=== PATIENT | female | born 1960 | race Caucasian/White ===

== ENCOUNTER → 2017-07-19 11:28 | Outpatient (CLI) | payer OTHER, SELFPAY ==
--- NOTE | 2017-07-19 11:37 | BI_ITS ---
MAMMOGRAPHY - BILATERAL SCREENING REASON FOR EXAM: Female, 57 years old. Routine annual screening examination. PERTINENT HISTORY: Grandmother with breast cancer. TECHNIQUE: Digital bilateral breast kwan (3D mammographic acquisition) in the CC and MLO projections. 2-D mediolateral oblique (MLO) and craniocaudad (CC) views of both breasts were obtained. CAD: Full Field Digital Mammography with Computer Added Detection was performed. COMPARISON: Comparison is made with prior operative examination dated February 25, 2016. FINDINGS: Breast Composition: There are scattered areas of fibroglandular density. There are no dominant masses or suspicious calcifications. Stable small bilateral benign appearing axillary lymph nodes. No other significant abnormalities are identified. There has been no significant change since the prior study. BI/SCREENING MAMM (CAD), BILAT IMPRESSION: Stable bilateral screening mammogram. Yearly follow-up mammogram recommended. (A) ASSESSMENT CATEGORY: BIRADS Category 2: Benign. A letter regarding these results will be sent to the patient by the facility within 30 days. Approximately 10% of breast cancers are not detected by mammography. A normal mammogram should not delay biopsy of a clinically suspicious abnormality. [id number] Electronically Signed: Qamar Day MD at 7:58 EDT Tel [phone], Service support ,
== END ==
DX: Z12.31 Encounter for screening mammogram for malignant neoplasm of breast (principal)
CPT/HCPCS: 77063; 77067

== ENCOUNTER 2017-08-10 20:19 | Emergency (ER) | payer OTHER, SELFPAY ==
[2017-08-10 20:20] VITALS: BP 181/110; PULSE 112; RESP 20; TEMP 36.7; O2SAT 97; BMI 25.9
--- NOTE | 2017-08-10 21:05 | RAD_ITS ---
STUDY: X-RAY CHEST REASON FOR EXAM: Female, 57 years old. Chest pain TECHNIQUE: 1 view COMPARISON: None. FINDINGS: The lungs are clear and expanded. There is no demonstrated pleural abnormality. Normal size heart. Normal mediastinum and zaire. Normal visualized pulmonary arteries. Normal visualized aortic arch and descending thoracic aorta. Normal visualized thoracic spine. Normal visualized ribs, clavicles, and shoulders. There is no demonstrated abnormality of the visualized soft tissue structures of the upper abdomen. RAD/Chest 1 View (Portable) IMPRESSION: Normal x-ray examination of the chest. Electronically Signed: Berna Damico MD at 21:50 EDT , Service support ,
--- NOTE | 2017-08-10 21:07 | EKG12_ITS ---
Test Reason : CP Blood Pressure : / mmHG Vent. Rate : 105 BPM Atrial Rate : 105 BPM P-R Int : 166 ms QRS Dur : 092 ms QT Int : 342 ms P-R-T Axes : 061 048 063 degrees QTc Int : 452 ms Sinus tachycardia Low voltage QRS Borderline ECG Confirmed by JIMBO PETERS, ANAIS ([id number]), brands editor BOONE GONZALEZ ([id number]) on 08/16/2017 3:10:12 PM Referred By: CLINTON Confirmed By:ANAIS CHOI MD
[2017-08-10 21:09] VITALS: O2SAT 98
[2017-08-10 21:14] LABS: Absolute Lymphocyte Count 3.33 X10^3/ul (0.83-4.51); Absolute Neutrophil Count 5.3 X10^3/uL (2.0-7.7); Basophil# 0.03 X10^3/uL; Basophil% 0.3 % (0-1); Eosinophil# 0.26 X10^3/uL; Eosinophils% 2.6 % (0-5); Hematocrit 37.7 % (37-47); Hemoglobin 12.8 g/dl (12.0-15.0); Lymphocyte # 3.33 X10^3/ul (4.0); Lymphocyte % 33.5 % (19-41); Mean Corpuscular Hgb 31.9 pg (27.0-32.0); Mean Platelet Vol. 10.1 fl (6.2-12.0); Monocyte# 1.04 X10^3/uL; Monocyte% 10.5 % (0-10); Neutrophil # 5.26 X10^3/uL (2.7-7.7); Neutrophil % 52.9 % (47-70); POSITIVE COUNT NO; POSITIVE DIFFERENTIAL NO; POSITIVE MORPHOLOGY NO; Platelet Count 301 K/mm3 (150-450); RBC Distribution Width CV 13.6 % (11.6-14.6); RBC Distribution Width SD 45.6 fl (35.1-43.9); Red Blood Count 4.01 M/mm3 (4.2-5.4); White Blood Count 9.9 K/mm3 (4.4-11.0)
[2017-08-10 21:19] VITALS: BP 168/90; PULSE 111; RESP 13; O2SAT 98
[2017-08-10 21:29] LABS: Anion Gap 7 (5-15); BUN 14 mg/dL (7-18); BUN/Creat Ratio 13.9 RATIO (10-20); Calcium,Total 9.7 mg/dL (8.5-10.1); Chloride 103 mmol/L (98-107); Creatinine, Serum 1.01 mg/dL (0.55-1.02); EST Glomerular Filtration Rate 60 mL/min (>60); Est Glom Filt Rate - Afr Amer 72 mL/min (>60); Estimated Creatinine Clearance 53.97 ml/min; Glucose 112 mg/dL (74-106); Potassium 3.3 mmol/L (3.5-5.1); Sodium Level 141 mmol/L (136-145)
--- NOTE | 2017-08-10 21:30 | CT_ITS ---
STUDY: CTA CHEST REASON FOR EXAM: Female, 57 years old. Chest pain and nausea RADIATION DOSAGE (If Supplied By Facility): CTDIvol = ( 9.35 ) mGy, DLP = ( 366.08 ) mGycm TECHNIQUE: The examination was performed with the intravenous administration of 100 ml of Isovue 370 contrast material. Post-processing of the angiographic images was performed, with multiplanar reformation and 3D reconstruction. Individualized dose optimization techniques were used for this CT. COMPARISON: None. FINDINGS: Normal enhancement of the main pulmonary artery and right and left pulmonary arteries. Normal enhancement of the bilateral peripheral pulmonary arteries. There is no demonstrated pulmonary embolism. Normal thoracic aorta and visualized great vessels. There is no demonstrated aortic dissection. Heart is normal size and there is mild coronary artery calcification.. Normal mediastinum. Normal hilar regions. Normal visualized trachea and bronchi. The lungs are well expanded. There is mild generalized interstitial thickening and groundglass opacities most pronounced in the mid and lower lung zones of indeterminate chronicity. Cannot exclude interstitial pneumonitis There is mild atelectasis within the dependent portion of the lungs Normal pleura. Normal chest wall structures. Normal osseous structures. Normal visualized upper abdomen. CT/CTA Chest W/WO Contrast IMPRESSION: Nonspecific interstitial changes most pronounced in the mid and lower lung zones.. No evidence for pulmonary embolus Electronically Signed: Aki Ferrell MD at 22:45 EDT , Service support ,
[2017-08-10] MEDS: 0.9% Normal Saline 1,000 ML 999 ML IV (21:39)
[2017-08-10 22:00] VITALS: BP 163/110; PULSE 101; RESP 13; O2SAT 100
--- NOTE | 2017-08-10 23:02 | ED.VISSUMM ---
- ER Visit Summary Date of Service: 08/10/17 Chief Complaint: Chest pain History of Present Illness: The patient is a 57 F past medical history of irritable bowel, hypothyroidism and chronic leukemia. Patient's had no prior history of cardiac disease. No history of DVT or PE. No recent travel, surgery, mobilization. Denies any hemoptysis. States that 8:00 this morning she had atypical sensation in her mid lower back. And in pain in her lower epigastric lower chest region. It resolved. It returned and then resolved again. It was not associated with exertion. It was not associated with dyspnea. She had a slightly elevated heart rate. Her daughter is an RN and wanted her to be evaluated. She states she wears a fit bit did over 10,000 steps today and had no exertional shortness of breath or chest pain. Nor has she had any exertional symptoms recently. Physical Examination: Well-appearing middle-age female. Vital signs are stable her initial blood pressure is 181/110. Pulse ox 90% on room air no signs of hypoxia. No distress. H EENT exam unremarkable. Neck nontender no lymphadenopathy. Lungs clear to auscultation bilaterally. Heart regular rhythm rate about 110 no murmur. Abdomen soft nontender. Chest wall nontender. She is moving all 4 extremities. Calves are nontender without edema or cords. Equal symmetrical radial pulses. Neurologically she is awake alert without any focal motor deficits. Back exam is nontender. Test Results: Patient with atypical nonexertional chest pain. CBC normal. BMP unremarkable potassium at 3.3. Normal gap and creatinine. Troponin normal. EKG sinus tachycardia rate of 105 with no signs of MD or ischemia. Chest x-ray shows normal cardiac silhouette and mediastinum. Due to the patient's atypical nature and with the associated back pain I did obtain a CTA of the chest which showed no PE nor and more importantly no dissection. This is read by the radiologist and reviewed by me. Emergency Department Course and Treatment: Sid exam the patient is doing well at 2300. She is feeling better. Is comfortable being discharged home. She will be referred to Dr. Otto Cota's group for further evaluation and possibly an outpatient stress test. Treatment Plan: Out patient follow-up. Disposition: Discharged Impression: Atypical chest pain of uncertain etiology This note was generated with Glycosanation software. It may contain incorrect words, spelling, and punctuation that were not noted in review of the chart prior to signing ED Disposition - Plan for ED Patient: Chief Complaint: Chest Pain Referrals: [facility] Doctor,Out of [Primary Care Provider] -
--- NOTE | 2017-08-10 23:06 | ED.DCSUM_ITS ---
- ER Visit Summary Date of Service: 08/10/17 Chief Complaint: Chest pain History of Present Illness: The patient is a 57 F past medical history of irritable bowel, hypothyroidism and chronic leukemia. Patient's had no prior history of cardiac disease. No history of DVT or PE. No recent travel, surgery , mobilization. Denies any hemoptysis. States that 8:00 this morning she had atypical sensation in her mid lower back. And in pain in her lower epigastric lower chest region. It resolved. It returned and then resolved again. It was not associated with exertion. It was not associated with dyspnea. She had a slightly elevated heart rate. Her daughter is an RN and wanted her to be evaluated. She states she wears a fit bit did over 10,000 steps today and had no exertional shortness of breath or chest pain. Nor has she had any exertional symptoms recently. Physical Examination: Well-appearing middle-age female. Vital signs are stable her initial blood pressure is 181/110. Pulse ox 90% on room air no signs of hypoxia. No distress. H EENT exam unremarkable. Neck nontender no lymphadenopathy. Lungs clear to auscultation bilaterally. Heart regular rhythm rate about 110 no murmur. Abdomen soft nontender. Chest wall nontender. She is moving all 4 extremities. Calves are nontender without edema or cords. Equal symmetrical radial pulses. Neurologically she is awake alert without any focal motor deficits. Back exam is nontender. Test Results: Patient with atypical nonexertional chest pain. CBC normal. BMP unremarkable potassium at 3.3. Normal gap and creatinine. Troponin normal. EKG sinus tachycardia rate of 105 with no signs of [place] or ischemia. Chest x-ray shows normal cardiac silhouette and mediastinum. Due to the patient's atypical nature and with the associated back pain I did obtain a CTA of the chest which showed no PE nor and more importantly no dissection. This is read by the radiologist and reviewed by me. Emergency Department Course and Treatment: Sid exam the patient is doing well at 2300. She is feeling better. Is comfortable being discharged home. She will be referred to Dr. Otto Cota's group for further evaluation and possibly an outpatient stress test. Treatment Plan: Out patient follow-up. Disposition: Discharged Impression: Atypical chest pain of uncertain etiology This note was generated with Saygusation software. It may contain incorrect words, spelling, and punctuation that were not noted in review of the chart prior to signing ED Disposition - Plan for ED Patient: Chief Complaint: Chest Pain Referrals: [facility] [address] Doctor,Out of [Primary Care Provider] -
--- NOTE | 2017-08-10 23:06 | ED.DEP ---
ED Disposition - Plan for ED Patient: Disposition: Home or Assisted Living Chief Complaint: Chest Pain Instructions: ED Chest Pain Atypical Unkn Cause Referrals: Otto Cota MD [STAFF PHYSICIAN] - As soon as possible Additional Instructions: Return to ER feeling worse. All your tests and x-rays and CAT scans were normal tonight. Follow-up with Dr. Otto Cota for possible outpatient stress testing.
[2017-08-10 23:07] VITALS: BP 166/98; PULSE 109; RESP 20; O2SAT 99
--- NOTE | 2017-08-10 23:08 | ED.RN ---
REVIEWED D/C INSTRUCTIONS, FOLLOW UP CARE, AND S/S THAT WOULD WARRANT A RETURN TO THE ED WITH PT. PT VERBALIZED AN UNDERSTANDING AND DENIES FURTHER QUESTIONS FOR THIS RN. PT SKIN P/W/D, RESP EVEN AND UNLABORED, PT A&O X 3, NO DISTRESS NOTED. PT AMBULATED OUT OF ED, GAIT STEADY.
== END 2017-08-10 23:12 | disposition home or self-care (01) ==
PROVIDERS: Emergency Provider Emergency Medicine
DX: R07.89 Other chest pain (principal); M54.9 Dorsalgia, unspecified; K58.9 Irritable bowel syndrome, unspecified; E03.9 Hypothyroidism, unspecified; C95.10 Chronic leukemia of unspecified cell type not having achieved remission; Z79.899 Other long term (current) drug therapy
CPT/HCPCS: 71045; 71275; 80048; 84484; 85025; 93005; 96360; 96361; 99284; J7030; Q9967; A4216

== ENCOUNTER → 2017-08-14 10:16 | Outpatient (CLI) | payer OTHER, SELFPAY ==
[2017-08-14 12:33] LABS: Anion Gap 8 (5-15); BUN 14 mg/dL (7-18); BUN/Creat Ratio 15.1 RATIO (10-20); Chloride 103 mmol/L (98-107); Creatinine, Serum 0.93 mg/dL (0.55-1.02); EST Glomerular Filtration Rate 66 mL/min (>60); Est Glom Filt Rate - Afr Amer 80 mL/min (>60); Glucose 92 mg/dL (74-106); Magnesium 2.2 mg/dL (1.6-2.6); Potassium 4.2 mmol/L (3.5-5.1); Sodium Level 141 mmol/L (136-145)
[2017-08-14 13:08] LABS: Microalbumin,Random Urine 6.1 mg/L (NO RANGE EST.); Microalbumin:Creatinine Ratio 37.8 mg/g CRE (<30 mg/g CRE)
== END ==
PROVIDERS: Visit Provider Family Medicine
DX: I10 Essential (primary) hypertension (principal)
CPT/HCPCS: 36415; 80048; 82043; 82570; 83735

== ENCOUNTER → 2017-08-21 10:32 | Outpatient (CLI) | payer OTHER, SELFPAY ==
[2017-08-21 12:09] LABS: Absolute Lymphocyte Count 1.86 X10^3/ul (0.83-4.51); Basophil# 0.03 X10^3/uL; Basophil% 0.5 % (0-1); Eosinophil# 0.19 X10^3/uL; Eosinophils% 3.4 % (0-5); Hematocrit 37.7 % (37-47); Hemoglobin 12.3 g/dl (12.0-15.0); Lymphocyte # 1.86 X10^3/ul (4.0); Lymphocyte % 32.8 % (19-41); Mean Corp Hgb Conc 32.6 g/gl (32-36); Mean Corpuscular Hgb 31.1 pg (27.0-32.0); Mean Corpuscular Volume 95.2 fL (81-99); Mean Platelet Vol. 10.4 fl (6.2-12.0); Monocyte# 0.55 X10^3/uL; Monocyte% 9.7 % (0-10); Neutrophil # 3.03 X10^3/uL (2.7-7.7); Neutrophil % 53.4 % (47-70); Platelet Count 288 K/mm3 (150-450); RBC Distribution Width CV 13.4 % (11.6-14.6); RBC Distribution Width SD 46.5 fl (35.1-43.9); Red Blood Count 3.96 M/mm3 (4.2-5.4); White Blood Count 5.7 K/mm3 (4.4-11.0)
[2017-08-21 12:13] LABS: POSITIVE COUNT NO; POSITIVE DIFFERENTIAL NO; POSITIVE MORPHOLOGY NO
[2017-08-21 12:34] LABS: AST(SGOT) 22 U/L (15-37); Alanine Aminotransfer ALT/SGPT 25 U/L (13-56); Albumin, Serum 3.8 g/dL (3.2-5.0); Alkaline Phosphatase 87 U/L (45-117); Anion Gap 5 (5-15); BUN 16 mg/dL (7-18); Bilirubin, Direct 0.08 mg/dL (0.00-0.30); Chloride 103 mmol/L (98-107); Creatinine, Serum 0.91 mg/dL (0.55-1.02); EST Glomerular Filtration Rate 67 mL/min (>60); Est Glom Filt Rate - Afr Amer 81 mL/min (>60); Globulin 3.4 g/dL (2.2-4.2); Potassium 4.5 mmol/L (3.5-5.1); Protein, Total 7.2 g/dL (6.4-8.2); Sodium Level 139 mmol/L (136-145)
== END ==
DX: C92.10 Chronic myeloid leukemia, BCR/ABL-positive, not having achieved remission (principal)
CPT/HCPCS: 36415; 80051; 80076; 82565; 84520; 85025

== ENCOUNTER → 2018-06-15 11:14 | Outpatient (CLI) | payer OTHER, SELFPAY ==
[2018-06-15 12:19] LABS: Absolute Lymphocyte Count 1.78 X10^3/ul (0.83-4.51); Absolute Neutrophil Count 3.5 X10^3/uL (2.0-7.7); Basophil# 0.02 X10^3/uL; Basophil% 0.3 % (0-1); Eosinophil# 0.12 X10^3/uL; Eosinophils% 1.9 % (0-5); Hematocrit 39.4 % (37-47); Hemoglobin 13.1 g/dl (12.0-15.0); Lymphocyte # 1.78 X10^3/ul (4.0); Lymphocyte % 28.4 % (19-41); Mean Corp Hgb Conc 33.2 g/gl (32-36); Mean Corpuscular Hgb 29.6 pg (27.0-32.0); Mean Corpuscular Volume 89.1 fL (81-99); Mean Platelet Vol. 10.5 fl (6.2-12.0); Monocyte# 0.81 X10^3/uL; Monocyte% 12.9 % (0-10); Neutrophil # 3.53 X10^3/uL (2.7-7.7); Neutrophil % 56.5 % (47-70); Platelet Count 299 K/mm3 (150-450); RBC Distribution Width CV 12.4 % (11.6-14.6); RBC Distribution Width SD 39.8 fl (35.1-43.9); Red Blood Count 4.42 M/mm3 (4.2-5.4); White Blood Count 6.3 K/mm3 (4.4-11.0)
[2018-06-15 12:22] LABS: POSITIVE COUNT NO; POSITIVE DIFFERENTIAL NO; POSITIVE MORPHOLOGY NO
[2018-06-15 12:30] LABS: ALB/GLOB Ratio 1.2 RATIO (0.9-2.4); AST(SGOT) 22 U/L (15-37); Alanine Aminotransfer ALT/SGPT 26 U/L (13-56); Alkaline Phosphatase 96 U/L (45-117); Anion Gap 4 (5-15); BUN 16 mg/dL (7-18); BUN/Creat Ratio 24.9 RATIO (10-20); Calcium,Total 9.8 mg/dL (8.5-10.1); Chloride 104 mmol/L (98-107); Creatinine, Serum 0.64 mg/dL (0.55-1.02); EST Glomerular Filtration Rate 100 mL/min (>60); Est Glom Filt Rate - Afr Amer 121 mL/min (>60); Globulin 3.3 g/dL (2.2-4.2); Glucose 94 mg/dL (74-106); Potassium 4.4 mmol/L (3.5-5.1); Protein, Total 7.3 g/dL (6.4-8.2); Sodium Level 140 mmol/L (136-145)
== END ==
PROVIDERS: Family Provider Family Medicine; PCP Family Medicine
DX: C92.10 Chronic myeloid leukemia, BCR/ABL-positive, not having achieved remission (principal)
CPT/HCPCS: 36415; 80053; 85025

== ENCOUNTER 2018-07-20 10:51 | Outpatient (RCR) | payer OTHER, SELFPAY ==
[2018-07-20 12:22] LABS: Absolute Lymphocyte Count 1.82 X10^3/ul (0.83-4.51); Absolute Neutrophil Count 2.5 X10^3/uL (2.0-7.7); Basophil# 0.03 X10^3/uL; Basophil% 0.6 % (0-1); Eosinophil# 0.17 X10^3/uL; Eosinophils% 3.3 % (0-5); Hematocrit 39.3 % (37-47); Hemoglobin 12.8 g/dl (12.0-15.0); Lymphocyte # 1.82 X10^3/ul (4.0); Mean Corp Hgb Conc 32.6 g/gl (32-36); Mean Corpuscular Hgb 28.8 pg (27.0-32.0); Mean Corpuscular Volume 88.5 fL (81-99); Mean Platelet Vol. 10.6 fl (6.2-12.0); Monocyte# 0.65 X10^3/uL; Monocyte% 12.5 % (0-10); Neutrophil # 2.52 X10^3/uL (2.7-7.7); Neutrophil % 48.4 % (47-70); POSITIVE COUNT NO; POSITIVE DIFFERENTIAL NO; POSITIVE MORPHOLOGY NO; Platelet Count 263 K/mm3 (150-450); RBC Distribution Width CV 12.7 % (11.6-14.6); RBC Distribution Width SD 41.4 fl (35.1-43.9); Red Blood Count 4.44 M/mm3 (4.2-5.4); White Blood Count 5.2 K/mm3 (4.4-11.0)
[2018-07-20 12:34] LABS: ALB/GLOB Ratio 1.2 RATIO (0.9-2.4); AST(SGOT) 17 U/L (15-37); Alanine Aminotransfer ALT/SGPT 21 U/L (13-56); Albumin, Serum 4.1 g/dL (3.2-5.0); Alkaline Phosphatase 114 U/L (45-117); Anion Gap 3 (5-15); BUN 21 mg/dL (7-18); BUN/Creat Ratio 28.4 RATIO (10-20); Calcium,Total 10.1 mg/dL (8.5-10.1); Chloride 105 mmol/L (98-107); Creatinine, Serum 0.74 mg/dL (0.55-1.02); EST Glomerular Filtration Rate 85 mL/min (>60); Est Glom Filt Rate - Afr Amer 103 mL/min (>60); Globulin 3.3 g/dL (2.2-4.2); Glucose 104 mg/dL (74-106); Potassium 4.8 mmol/L (3.5-5.1); Protein, Total 7.4 g/dL (6.4-8.2); Sodium Level 139 mmol/L (136-145)
== END 2018-07-20 12:00 | disposition home or self-care (01) ==
LOC: MTLAB 10:51
PROVIDERS: Family Provider Family Medicine; PCP Family Medicine
DX: C92.10 Chronic myeloid leukemia, BCR/ABL-positive, not having achieved remission (principal)
CPT/HCPCS: 36415; 80053; 85025

== ENCOUNTER → 2018-09-21 | Outpatient (CLI) | payer OTHER, SELFPAY ==
[2018-09-21 15:21] LABS: Progesterone Level 0.12 ng/mL (See Comment); Vitamin D,25 Hydroxy 58.7 ng/mL (29.95-100.01)
[2018-09-21 15:22] LABS: Estradiol 11.7 pg/mL; Free T3 5.6 pg/mL (2.18-3.98); Thyroid Stim Hormone (TSH) < 0.01 uIU/mL (0.358-3.74)
== END | disposition home or self-care (01) ==
LOC: MTLAB 12:07
PROVIDERS: Family Provider Family Medicine; PCP Family Medicine
DX: N95.1 Menopausal and female climacteric states (principal); E03.9 Hypothyroidism, unspecified; E55.9 Vitamin D deficiency, unspecified
CPT/HCPCS: 36415; 82306; 82627; 82670; 84144; 84402; 84403; 84439; 84443; 84481; 82626

== ENCOUNTER → 2018-10-05 | Outpatient (CLI) | payer OTHER, SELFPAY ==
[2018-10-05 17:30] LABS: Absolute Lymphocyte Count 2.33 X10^3/uL (0.83-4.51); Absolute Neutrophil Count 3.4 X10^3/uL (2.0-7.7); Basophil# 0.03 X10^3/uL; Basophil% 0.4 % (0-1); Eosinophil# 0.21 X10^3/uL; Lymphocyte # 2.33 X10^3/ul (4.0); Lymphocyte % 33.8 % (19-41); Mean Corp Hgb Conc 32.4 g/dL (32-36); Mean Corpuscular Hgb 29.1 pg (27.0-32.0); Mean Corpuscular Volume 89.8 fL (81-99); Mean Platelet Vol. 10.5 fl (6.2-12.0); Monocyte# 0.87 X10^3/uL; Monocyte% 12.6 % (0-10); NRBC Flagged by Analyzer 0 % (0-5); Neutrophil # 3.44 X10^3/uL (2.7-7.7); Neutrophil % 50.1 % (47-70); Platelet Count 262 K/mm3 (150-450); RBC Distribution Width CV 14.2 % (11.6-14.6); RBC Distribution Width SD 45.9 fl (35.1-43.9); Red Blood Count 4.12 M/mm3 (4.2-5.4); White Blood Count 6.9 K/mm3 (4.4-11.0)
[2018-10-05 17:59] LABS: ALB/GLOB Ratio 1.2 RATIO (0.9-2.4); AST(SGOT) 27 U/L (15-37); Alanine Aminotransfer ALT/SGPT 49 U/L (13-56); Albumin, Serum 4.2 g/dL (3.2-5.0); Alkaline Phosphatase 132 U/L (45-117); Anion Gap 8 (5-15); BUN 20 mg/dL (7-18); BUN/Creat Ratio 28.2 RATIO (10-20); Calcium,Total 9.8 mg/dL (8.5-10.1); Chloride 104 mmol/L (98-107); Creatinine, Serum 0.71 mg/dL (0.55-1.02); EST Glomerular Filtration Rate 89 mL/min (>60); Est Glom Filt Rate - Afr Amer 108 mL/min (>60); Globulin 3.4 g/dL (2.2-4.2); Glucose 81 mg/dL (74-106); Potassium 3.6 mmol/L (3.5-5.1); Protein, Total 7.6 g/dL (6.4-8.2); Sodium Level 139 mmol/L (136-145)
== END | disposition home or self-care (01) ==
LOC: MTLAB 16:18
PROVIDERS: Family Provider Family Medicine; PCP Family Medicine
DX: C92.10 Chronic myeloid leukemia, BCR/ABL-positive, not having achieved remission (principal)
CPT/HCPCS: 36415; 80053; 85025

== ENCOUNTER → 2018-12-19 09:51 | Outpatient (CLI) | payer OTHER, SELFPAY ==
[2018-10-30 12:37] VITALS: BMI 24.3
[2018-12-19 12:25] LABS: Absolute Lymphocyte Count 1.47 X10^3/uL (0.83-4.51); Absolute Neutrophil Count 2.3 X10^3/uL (2.0-7.7); Basophil# 0.03 X10^3/uL; Basophil% 0.7 % (0-1); Eosinophil# 0.14 X10^3/uL; Eosinophils% 3.1 % (0-5); Hematocrit 37.5 % (37-47); Lymphocyte # 1.47 X10^3/ul (4.0); Lymphocyte % 32.3 % (19-41); Mean Corpuscular Hgb 29.6 pg (27.0-32.0); Mean Corpuscular Volume 92.4 fL (81-99); Mean Platelet Vol. 10.3 fl (6.2-12.0); Monocyte# 0.56 X10^3/uL; Monocyte% 12.3 % (0-10); NRBC Flagged by Analyzer 0 % (0-5); Neutrophil # 2.34 X10^3/uL (2.7-7.7); Neutrophil % 51.4 % (47-70); Platelet Count 266 K/mm3 (150-450); RBC Distribution Width CV 14.3 % (11.6-14.6); RBC Distribution Width SD 48.5 fl (35.1-43.9); Red Blood Count 4.06 M/mm3 (4.2-5.4); White Blood Count 4.6 K/mm3 (4.4-11.0)
[2018-12-19 12:59] LABS: ALB/GLOB Ratio 1.2 RATIO (0.9-2.4); AST(SGOT) 23 U/L (15-37); Alanine Aminotransfer ALT/SGPT 25 U/L (13-56); Albumin, Serum 3.9 g/dL (3.2-5.0); Alkaline Phosphatase 110 U/L (45-117); Anion Gap 4 (5-15); BUN 20 mg/dL (7-18); BUN/Creat Ratio 27.4 RATIO (10-20); Calcium,Total 9.8 mg/dL (8.5-10.1); Chloride 104 mmol/L (98-107); Creatinine, Serum 0.73 mg/dL (0.55-1.02); EST Glomerular Filtration Rate 86 mL/min (>60); Est Glom Filt Rate - Afr Amer 104 mL/min (>60); Free T3 5.5 pg/mL (2.18-3.98); Globulin 3.3 g/dL (2.2-4.2); Glucose 90 mg/dL (74-106); Potassium 4.4 mmol/L (3.5-5.1); Protein, Total 7.2 g/dL (6.4-8.2); Sodium Level 138 mmol/L (136-145); T4 Free Direct 1.47 ng/dL (0.76-1.46); Thyroid Stim Hormone (TSH) < 0.01 uIU/mL (0.358-3.74)
== END ==
PROVIDERS: Family Provider Family Medicine; PCP Family Medicine; Referring Provider Family Medicine; Visit Provider Family Medicine
DX: E05.80 Other thyrotoxicosis without thyrotoxic crisis or storm (principal); C92.10 Chronic myeloid leukemia, BCR/ABL-positive, not having achieved remission
CPT/HCPCS: 36415; 80053; 83735; 84439; 84443; 84481; 85025

== ENCOUNTER → 2018-12-26 10:31 | Outpatient (CLI) | payer OTHER, SELFPAY ==
[2018-10-30 12:37] VITALS: BMI 24.3
--- NOTE | 2018-12-26 10:33 | BI_ITS ---
MAMMOGRAPHY - BILATERAL SCREENING REASON FOR EXAM: Female, 58 years old. Routine annual screening examination. PERTINENT HISTORY: Grandmother with breast cancer. TECHNIQUE: Digital bilateral breast christopher (3D mammographic acquisition) in the CC and MLO projections. 2-D mediolateral oblique (MLO) and craniocaudad (CC) views of both breasts were obtained. CAD: Full Field Digital Mammography with Computer Added Detection was performed. COMPARISON: Comparison is made with prior study dated July 19, 2017. FINDINGS: Breast Composition: There are scattered areas of fibroglandular density. There are no dominant masses or suspicious calcifications. No other significant abnormalities are identified. There has been no significant change since the prior study. BI/SCREEN MAMM (CAD) W/CHRISTOPHER BILAT IMPRESSION: Stable bilateral screening mammogram. Yearly follow-up mammogram recommended. (A) ASSESSMENT CATEGORY: BIRADS Category 1: Negative. A letter regarding these results will be sent to the patient by the facility within 30 days. Approximately 10% of breast cancers are not detected by mammography. A normal mammogram should not delay biopsy of a clinically suspicious abnormality. [id number] Electronically Signed: Qamar Day, at 12:47 EDT , Service support ,
== END ==
PROVIDERS: Family Provider Family Medicine; PCP Family Medicine; Referring Provider Family Medicine; Visit Provider Family Medicine
DX: Z12.31 Encounter for screening mammogram for malignant neoplasm of breast (principal)
CPT/HCPCS: 77063; 77067

== ENCOUNTER → 2019-01-30 10:33 | Outpatient (CLI) | payer OTHER, SELFPAY ==
[2018-10-30 12:37] VITALS: BMI 24.3
[2019-01-30 12:39] LABS: Absolute Lymphocyte Count 1.62 X10^3/uL (0.83-4.51); Absolute Neutrophil Count 2.2 X10^3/uL (2.0-7.7); Basophil# 0.03 X10^3/uL; Basophil% 0.7 % (0-1); Eosinophil# 0.17 X10^3/uL; Eosinophils% 3.7 % (0-5); Hematocrit 38.6 % (37-47); Hemoglobin 12.1 g/dL (12.0-15.0); Lymphocyte # 1.62 X10^3/ul (4.0); Lymphocyte % 35.3 % (19-41); Mean Corp Hgb Conc 31.3 g/dL (32-36); Mean Corpuscular Hgb 29.2 pg (27.0-32.0); Mean Corpuscular Volume 93.2 fL (81-99); Mean Platelet Vol. 10.2 fl (6.2-12.0); Monocyte# 0.59 X10^3/uL; Monocyte% 12.9 % (0-10); NRBC Flagged by Analyzer 0 % (0-5); Neutrophil # 2.17 X10^3/uL (2.7-7.7); Neutrophil % 47.2 % (47-70); Platelet Count 304 K/mm3 (150-450); RBC Distribution Width CV 14.8 % (11.6-14.6); RBC Distribution Width SD 50.1 fl (35.1-43.9); Red Blood Count 4.14 M/mm3 (4.2-5.4); White Blood Count 4.6 K/mm3 (4.4-11.0)
[2019-01-30 13:02] LABS: ALB/GLOB Ratio 1.4 RATIO (0.9-2.4); AST(SGOT) 20 U/L (15-37); Alanine Aminotransfer ALT/SGPT 30 U/L (13-56); Albumin, Serum 4.4 g/dL (3.2-5.0); Alkaline Phosphatase 109 U/L (45-117); Anion Gap 5 (5-15); BUN 21 mg/dL (7-18); BUN/Creat Ratio 25.2 RATIO (10-20); Calcium,Total 10.1 mg/dL (8.5-10.1); Chloride 106 mmol/L (98-107); Creatinine, Serum 0.83 mg/dL (0.55-1.02); EST Glomerular Filtration Rate 74 mL/min (>60); Est Glom Filt Rate - Afr Amer 90 mL/min (>60); Globulin 3.2 g/dL (2.2-4.2); Glucose 91 mg/dL (74-106); Potassium 4.6 mmol/L (3.5-5.1); Protein, Total 7.6 g/dL (6.4-8.2); Sodium Level 140 mmol/L (136-145)
== END ==
PROVIDERS: Family Provider Family Medicine; PCP Family Medicine
DX: C92.10 Chronic myeloid leukemia, BCR/ABL-positive, not having achieved remission (principal)
CPT/HCPCS: 36415; 80053; 85025

== ENCOUNTER 2019-06-21 14:50 | Emergency (ER) | payer OTHER, SELFPAY ==
[2019-06-21 14:52] VITALS: BP 211/99; PULSE 79; RESP 12; TEMP 36.8; O2SAT 99; BMI 24.3
--- NOTE | 2019-06-21 15:09 | EKG12_ITS ---
Test Reason : CP Blood Pressure : / mmHG Vent. Rate : 074 BPM Atrial Rate : 074 BPM P-R Int : 192 ms QRS Dur : 092 ms QT Int : 386 ms P-R-T Axes : 049 018 034 degrees QTc Int : 428 ms Somatic/motion artifact Normal sinus rhythm Confirmed by JIMBO PETERS, ANAIS ([id number]), department editor BOONE GONZALEZ ([id number]) on 06/24/2019 10:11:41 AM Referred By: Confirmed By:ANAIS CHOI MD
--- NOTE | 2019-06-21 15:09 | RAD_ITS ---
STUDY: X-RAY CHEST REASON FOR EXAM: Female, 59 years old. CP SINCE MONDAY NIGHT. WORSENED TODAY, HYPERTENSION. CHEST PRESSURE, SOB AND DIZZINESS TECHNIQUE: Single AP portable view of the chest. COMPARISON: 5 FINDINGS: EKG electrodes are seen. Small left pleural effusion with left basilar atelectasis or infiltrate. Normal size heart. Normal mediastinum and zaire. Normal visualized pulmonary arteries. Normal visualized aortic arch and descending thoracic aorta. Normal visualized thoracic spine. Normal visualized ribs, clavicles, and shoulders. There is no demonstrated abnormality of the visualized soft tissue structures of the upper abdomen. RAD/Chest 1 View (Portable) IMPRESSION: Small left pleural effusion and left basilar atelectasis and/or infiltrate. Electronically Signed: Qamar Day, at 15:49 EDT , Service support ,
--- NOTE | 2019-06-21 15:10 | ED.VIS.GEN ---
History of Present Illness Chief Complaint: Chest Pain Informant: Patient Onset: Days Narrative: Patient presents the emergency department with a four-day history of chest heaviness. She does note a progressive cough is not productive. She states the cough seems to her to be secondary to the chest heaviness. She does note a sensation of shortness of breath. The patient notes that yesterday her blood pressure is slightly elevated but not to the point where it is at today. Her daughter is a nurse and came over and took her blood pressure several times with the remaining elevated around 200 systolic the patient came in for evaluation.. She denies any sore throat runny nose or earaches. No nausea vomiting diarrhea. No urinary symptoms. No reported fevers. She states she does feel slightly dizzy at times. She is currently undergoing treatment of CML. She has not changed her chemotherapy medicine for 1 year. She walks 6.2 miles several times a week this time a year and has not had any difficulty with that. She has not had any prior stress test or heart catheterizations. Past Medical History - Allergies and Home Meds Allergies/Adverse Reactions: Allergies No Known Allergies Allergy (Verified 06/21/19 15:01) Smoking Status: Never smoker Review of Systems General: Denies: Chills, Fever, Sweats Eyes: Denies: Visual changes - bilaterally, Diplopia ENT: Denies: Rhinorrhea, Sore throat Cardiovascular: Reports: Chest pain. Denies: Palpitations Respiratory: Reports: Dyspnea, Cough. Denies: Dyspnea on exertion Gastrointestinal: Denies: Abdominal pain, Nausea, Vomiting, Diarrhea, Melena, Hematochezia Genitourinary: Denies: Dysuria, Hematuria, Frequency Musculoskeletal: Denies: Back pain, Extremity Pain Skin: Denies: Rash, Wounds Neurological: Denies: Headache, Weakness, Numbness Physical Exam Vital Signs/Narrative: Vital Signs Temp Pulse Resp BP Pulse Ox 06/21/19 14:52 98.2 F 79 12 211/99 H 99 Inital Vital Signs reviewed: Yes General: Well nourished, Well developed, No Acute Distress Head: Normocephalic, Atraumatic Eyes: Perrl, EOMI ENT: Moist mucous membranes, No rhinorrhea Neck: Supple, Nontender Cardiovascular: Regular rate, Regular rhythm, No murmurs Respiratory: No distress, CTA bilaterally, Chest nontender Abdomen: Soft, Nontender, Nondistended, Normal bowel sounds Back: Nontender, Normal Inspection Extremities: Nontender, No edema Skin: Normal color, No rash Neurological: Alert, Oriented x3, Cranial nerves II-XII grossly intact, Normal Strength, Normal Sensation Psychological: Normal affect, Normal Mood Diagnostic/Tx/Re-eval - EKG Initial EKG Interpretation: Sinus Rhythm - EKG demonstrates a normal sinus rhythm at a rate of 74 without any ectopy or concerning features of ACS. This is compared to 10 August 2017 with no significant changes. - Medical Decision Making Basic labs including troponin were negative. White count 6.7 with normal hemoglobin and platelets. Chest x-ray demonstrates a small left pleural effusion. CTA was negative for pulmonary embolism and demonstrates a moderate size pleural effusion. No obvious infectious cause. I discussed the case with her oncology team as her Sprycel can cause pleural effusions. They have requested that we place her on Lasix which should help the effusion but also her blood pressure. She will need to be seen by them in 1 week. Her COVID-19 test will be back in a couple days. Return if worsening or concerns. Patient understands the plan is comfortable with it. ED Disposition - Plan for ED Patient: Disposition: Home or Assisted Living Diagnosis: Chest pain, Dyspnea, Pleural effusion, left, CML (chronic myelocytic leukemia) Instructions: ED Effusion Pleural Prescriptions: Furosemide [Lasix] 40 mg PO DAILY #14 tab Transmission Status: Sent to [facility] Additional Instructions: You need to follow-up with your oncology team at [facility] in 1 week. Continue to self isolate. Your Ramses test should be back in about 2 to 3 days. Return if worsening or concerns.
[2019-06-21 15:18] LABS: Absolute Lymphocyte Count 1.42 X10^3/uL (0.83-4.51); Absolute Neutrophil Count 4.1 X10^3/uL (2.0-7.7); Basophil# 0.03 X10^3/uL; Basophil% 0.4 % (0-1); Eosinophil# 0.16 X10^3/uL; Eosinophils% 2.4 % (0-5); Hematocrit 42.1 % (37-47); Hemoglobin 13.8 g/dL (12.0-15.0); Lymphocyte # 1.42 X10^3/ul (4.0); Lymphocyte % 21.3 % (19-41); Mean Corp Hgb Conc 32.8 g/dL (32-36); Mean Corpuscular Hgb 30.1 pg (27.0-32.0); Mean Corpuscular Volume 91.7 fL (81-99); Mean Platelet Vol. 9.9 fl (6.2-12.0); Monocyte# 0.93 X10^3/uL; Monocyte% 13.9 % (0-10); NRBC Flagged by Analyzer 0 % (0-5); Neutrophil # 4.12 X10^3/uL (2.7-7.7); Neutrophil % 61.7 % (47-70); Platelet Count 274 K/mm3 (150-450); RBC Distribution Width CV 13.8 % (11.6-14.6); RBC Distribution Width SD 46.5 fl (35.1-43.9); Red Blood Count 4.59 M/mm3 (4.2-5.4); White Blood Count 6.7 K/mm3 (4.4-11.0)
[2019-06-21 15:32] LABS: Anion Gap 6 (5-15); BUN 14 mg/dL (7-18); BUN/Creat Ratio 16.3 RATIO (10-20); Calcium,Total 9.8 mg/dL (8.5-10.1); Chloride 103 mmol/L (98-107); Creatinine, Serum 0.86 mg/dL (0.55-1.02); EST Glomerular Filtration Rate 71 mL/min (>60); Est Glom Filt Rate - Afr Amer 86 mL/min (>60); Estimated Creatinine Clearance 61.81 ml/min; Glucose 107 mg/dL (74-106); Magnesium 1.9 mg/dL (1.6-2.6); Potassium 3.6 mmol/L (3.5-5.1); Sodium Level 138 mmol/L (136-145)
--- NOTE | 2019-06-21 15:47 | CT_ITS ---
STUDY: CTA CHEST REASON FOR EXAM: Female, 59 years old. CHEST PAIN X3 DAYS-WORSE TODAY -- CHEST PRESSURE,ELEVATED BP, SHORT OF BREATH,DIZZINESS X-TODAY RADIATION DOSAGE (If Supplied By Facility): CTDIvol = ( 9.44 ) mGy, DLP = ( 341.49 ) mGycm TECHNIQUE: The examination was performed with the intravenous administration of 100cc ISOVUE 370. Post-processing of the angiographic images was performed, with multiplanar reformation and 3D reconstruction. Individualized dose optimization techniques were used for this CT. COMPARISON: 08/10/2017 FINDINGS: Normal enhancement of the main pulmonary artery and right and left pulmonary arteries. Normal enhancement of the bilateral peripheral pulmonary arteries. There is no demonstrated pulmonary embolism. Normal thoracic aorta and visualized great vessels. There is no demonstrated aortic dissection. Normal heart and pericardium. Normal mediastinum. Normal hilar regions. Normal visualized trachea and bronchi. The lungs are well expanded. Normal pulmonary parenchyma. Moderate left pleural effusion with some left lower lobe atelectasis. Normal chest wall structures. Normal osseous structures. Normal visualized upper abdomen. CT/CTA Chest W/WO Contrast IMPRESSION: 1. Normal CTA chest examination, without a demonstrated pulmonary embolism or arterial dissection. 2. Moderate left pleural effusion with some left lower lobe atelectasis. Electronically Signed: Po Dumont MD at 16:49 EDT Tel , Service support ,
[2019-06-21 16:11] VITALS: BP 160/92; PULSE 73; RESP 16; O2SAT 97
[2019-06-21 17:00] VITALS: BP 124/83; PULSE 77; RESP 15; O2SAT 96
[2019-06-21 18:56] VITALS: BP 156/91; PULSE 73; RESP 17; O2SAT 97
--- NOTE | 2019-06-21 18:57 | ED.RN ---
DISCHARGE INSTRUCTIONS GIVEN TO AND REVIEWED WITH PATIENT, PATIENT DENIES QUESTIONS OR CONCERNS AND VOICES UNDERSTANDING OF DISCHARGE INSTRUCTIONS. PT AMBULATES OUT OF ROOM WITHOUT DIFFICULTY.
--- NOTE | 2019-06-23 18:22 | ED.RN ---
pt called about negative covid test
== END 2019-06-21 18:58 | disposition home or self-care (01) ==
PROVIDERS: Emergency Provider Emergency Medicine; PCP Family Medicine
DX: R07.89 Other chest pain (principal); J90 Pleural effusion, not elsewhere classified; C92.10 Chronic myeloid leukemia, BCR/ABL-positive, not having achieved remission; I10 Essential (primary) hypertension; Z79.899 Other long term (current) drug therapy
CPT/HCPCS: 71045; 71275; 80048; 83735; 84484; 85025; 87635; 93005; 99284; G2023; Q9967; A4216; U0004

== ENCOUNTER → 2019-06-25 12:43 | Outpatient (CLI) | payer OTHER, SELFPAY ==
[2019-06-21 14:52] VITALS: BMI 24.3
--- NOTE | 2019-06-25 12:45 | RAD_ITS ---
STUDY: X-RAY CHEST REASON FOR EXAM: Female, 59 years old. PLEURAL EFFUSION TECHNIQUE: PA and lateral views of the chest. COMPARISON: June 21, 2019. FINDINGS: Cardiac silhouette unremarkable. Pulmonary vascularity unremarkable. Aorta minimally calcified. No focal patchy airspace opacities. Small left pleural effusion with minimal compressive changes. Subtly coarse lung markings/COPD. Upper abdomen unremarkable. Osseous structures intact with mild degenerative features. No pneumothorax. RAD/Chest PA and Lateral IMPRESSION: Small left pleural effusion with minimal compressive changes Slightly coarse lung markings/COPD Electronically Signed: Otto Gutiérrez DO at 13:12 EDT Tel , Service support ,
[2019-06-25 12:55] LABS: Absolute Lymphocyte Count 2.11 X10^3/uL (0.83-4.51); Absolute Neutrophil Count 2.7 X10^3/uL (2.0-7.7); Basophil# 0.02 X10^3/uL; Basophil% 0.4 % (0-1); Eosinophil# 0.16 X10^3/uL; Eosinophils% 2.9 % (0-5); Hematocrit 41.7 % (37-47); Hemoglobin 13.6 g/dL (12.0-15.0); Lymphocyte # 2.11 X10^3/ul (4.0); Lymphocyte % 37.8 % (19-41); Mean Corp Hgb Conc 32.6 g/dL (32-36); Mean Corpuscular Hgb 29.9 pg (27.0-32.0); Mean Corpuscular Volume 91.6 fL (81-99); Mean Platelet Vol. 9.4 fl (6.2-12.0); Monocyte# 0.62 X10^3/uL; Monocyte% 11.1 % (0-10); NRBC Flagged by Analyzer 0 % (0-5); Neutrophil # 2.66 X10^3/uL (2.7-7.7); Neutrophil % 47.6 % (47-70); Platelet Count 292 K/mm3 (150-450); RBC Distribution Width CV 13.7 % (11.6-14.6); Red Blood Count 4.55 M/mm3 (4.2-5.4); White Blood Count 5.6 K/mm3 (4.4-11.0)
[2019-06-25 13:13] LABS: AST(SGOT) 26 U/L (15-37); Alanine Aminotransfer ALT/SGPT 34 U/L (13-56); Albumin, Serum 4.6 g/dL (3.2-5.0); Alkaline Phosphatase 109 U/L (45-117); Anion Gap 6 (5-15); BUN 18 mg/dL (7-18); Bilirubin, Direct 0.08 mg/dL (0.00-0.30); Calcium,Total 10.3 mg/dL (8.5-10.1); Chloride 101 mmol/L (98-107); Creatinine, Serum 0.95 mg/dL (0.55-1.02); EST Glomerular Filtration Rate 64 mL/min (>60); Est Glom Filt Rate - Afr Amer 77 mL/min (>60); Globulin 3.5 g/dL (2.2-4.2); Glucose 98 mg/dL (74-106); Potassium 4.1 mmol/L (3.5-5.1); Protein, Total 8.1 g/dL (6.4-8.2); Sodium Level 137 mmol/L (136-145)
== END ==
PROVIDERS: PCP Family Medicine
DX: C92.10 Chronic myeloid leukemia, BCR/ABL-positive, not having achieved remission (principal); J90 Pleural effusion, not elsewhere classified
CPT/HCPCS: 36415; 71046; 80048; 80076; 85025

== ENCOUNTER → 2019-07-15 10:53 | Outpatient (CLI) | payer OTHER, SELFPAY ==
[2019-06-21 14:52] VITALS: BMI 24.3
--- NOTE | 2019-07-15 10:57 | RAD_ITS ---
STUDY: X-RAY CHEST REASON FOR EXAM: Female, 59 years old. FOLLOW UP ON LEFT SIDED PLEURAL EFFUSION- PT HAS NO COMPLAINTS TECHNIQUE: Frontal and lateral views of the chest. COMPARISON: 06/25/2019 FINDINGS: The lungs are clear and expanded. There is small left pleural effusion has increased in size since the previous study. Normal size heart. Normal mediastinum and zaire. Normal visualized pulmonary arteries. Normal visualized aortic arch and descending thoracic aorta. Normal visualized thoracic spine. Normal visualized ribs, clavicles, and shoulders. There is no demonstrated abnormality of the visualized soft tissue structures of the upper abdomen. RAD/Chest PA and Lateral IMPRESSION: There is small left pleural effusion has increased in size since the previous study. Electronically Signed: Devin Perdue, at 11:37 EDT Tel , Service support ,
== END ==
PROVIDERS: PCP Family Medicine
DX: C92.10 Chronic myeloid leukemia, BCR/ABL-positive, not having achieved remission (principal)
CPT/HCPCS: 71046

== ENCOUNTER → 2019-08-12 | Outpatient (CLI) | payer OTHER, SELFPAY ==
[2019-08-19 05:28] LABS: HPV Reflexed? NOT INDICATED
== END | disposition home or self-care (01) ==
PROVIDERS: PCP Family Medicine; Referring Provider Family Medicine; Visit Provider Family Medicine
DX: Z01.419 Encounter for gynecological examination (general) (routine) without abnormal findings (principal)
CPT/HCPCS: 88175; G0145

== ENCOUNTER 2019-09-16 10:26 | Outpatient (RCR) | payer OTHER, SELFPAY ==
--- NOTE | 2019-09-16 10:33 | RAD_ITS ---
STUDY: X-RAY CHEST REASON FOR EXAM: Female, 59 years old. Pleural effusion TECHNIQUE: PA and lateral views of the chest. COMPARISON: 07/15/2019 FINDINGS: Lungs are expanded. Right lung remains free of a superimposed acute pulmonary process. There is stable blunting of the left costophrenic angle suggesting a likely chronic pleural effusion. It is not increased or decreased in size since the previous study. Normal size heart. Normal mediastinum and zaire. Normal visualized pulmonary arteries. Normal visualized aortic arch and descending thoracic aorta. Normal visualized thoracic spine. Normal visualized ribs, clavicles, and shoulders. There is no demonstrated abnormality of the visualized soft tissue structures of the upper abdomen. RAD/Chest PA and Lateral IMPRESSION: Stable blunting of the left costophrenic angle suggesting chronic left pleural effusion. No change since the previous study. No superimposed infiltrate. Electronically Signed: Ihsan Sapp MD at 11:00 EDT , Service support ,
[2019-09-16 12:08] LABS: Absolute Lymphocyte Count 1.85 X10^3/uL (0.83-4.51); Absolute Neutrophil Count 2.5 X10^3/uL (2.0-7.7); Basophil# 0.05 X10^3/uL; Basophil% 0.9 % (0-1); Eosinophil# 0.24 X10^3/uL; Eosinophils% 4.3 % (0-5); Hematocrit 38.5 % (37-47); Hemoglobin 11.9 g/dL (12.0-15.0); Lymphocyte # 1.85 X10^3/ul (4.0); Lymphocyte % 33.5 % (19-41); Mean Corp Hgb Conc 30.9 g/dL (32-36); Mean Corpuscular Volume 90.6 fL (81-99); Mean Platelet Vol. 9.5 fl (6.2-12.0); Monocyte# 0.91 X10^3/uL; Monocyte% 16.5 % (0-10); NRBC Flagged by Analyzer 0 % (0-5); Neutrophil # 2.47 X10^3/uL (2.7-7.7); Neutrophil % 44.6 % (47-70); Platelet Count 340 K/mm3 (150-450); RBC Distribution Width CV 13.6 % (11.6-14.6); RBC Distribution Width SD 44.3 fl (35.1-43.9); Red Blood Count 4.25 M/mm3 (4.2-5.4); White Blood Count 5.5 K/mm3 (4.4-11.0)
[2019-09-16 12:43] LABS: AST(SGOT) 34 U/L (15-37); Alanine Aminotransfer ALT/SGPT 44 U/L (13-56); Albumin, Serum 3.8 g/dL (3.2-5.0); Alkaline Phosphatase 125 U/L (45-117); Anion Gap 5 (5-15); BUN 11 mg/dL (7-18); Bilirubin, Direct 0.12 mg/dL (0.00-0.30); Calcium,Total 9.6 mg/dL (8.5-10.1); Chloride 100 mmol/L (98-107); Creatinine, Serum 0.91 mg/dL (0.55-1.02); EST Glomerular Filtration Rate 66 mL/min (>60); Est Glom Filt Rate - Afr Amer 80 mL/min (>60); Globulin 3.3 g/dL (2.2-4.2); Glucose 98 mg/dL (74-106); Magnesium 2.3 mg/dL (1.6-2.6); Potassium 4.7 mmol/L (3.5-5.1); Protein, Total 7.1 g/dL (6.4-8.2); Sodium Level 136 mmol/L (136-145)
== END 2019-09-16 18:00 | disposition home or self-care (01) ==
LOC: MTLAB 10:26
PROVIDERS: PCP Family Medicine
DX: J90 Pleural effusion, not elsewhere classified (principal); C92.10 Chronic myeloid leukemia, BCR/ABL-positive, not having achieved remission; I10 Essential (primary) hypertension
CPT/HCPCS: 36415; 71046; 80048; 80076; 83735; 85025

== ENCOUNTER → 2019-09-26 | Outpatient (CLI) | payer OTHER, SELFPAY | END | disposition home or self-care (01) | LOC: LABSPEC 17:54 | PROVIDERS: PCP Family Medicine; Referring Provider Family Medicine; Visit Provider Family Medicine | DX: U07.1 COVID-19 (principal) | CPT/HCPCS: 87635; 94799; U0003 ==

== ENCOUNTER 2019-12-23 13:48 | Outpatient (RCR) | payer OTHER, SELFPAY ==
[2019-12-23 15:21] LABS: Absolute Lymphocyte Count 1.74 X10^3/uL (0.83-4.51); Absolute Neutrophil Count 3.3 X10^3/uL (2.0-7.7); Basophil# 0.03 X10^3/uL; Basophil% 0.5 % (0-1); Eosinophil# 0.22 X10^3/uL; Eosinophils% 3.6 % (0-5); Hematocrit 41.3 % (37-47); Hemoglobin 12.6 g/dL (12.0-15.0); Lymphocyte # 1.74 X10^3/ul (4.0); Lymphocyte % 28.9 % (19-41); Mean Corp Hgb Conc 30.5 g/dL (32-36); Mean Corpuscular Hgb 26.7 pg (27.0-32.0); Mean Corpuscular Volume 87.5 fL (81-99); Mean Platelet Vol. 9.8 fl (6.2-12.0); Monocyte# 0.72 X10^3/uL; Monocyte% 11.9 % (0-10); NRBC Flagged by Analyzer 0 % (0-5); Neutrophil % 54.8 % (47-70); Platelet Count 367 K/mm3 (150-450); RBC Distribution Width CV 16.8 % (11.6-14.6); RBC Distribution Width SD 53.3 fl (35.1-43.9); Red Blood Count 4.72 M/mm3 (4.2-5.4)
[2019-12-23 15:43] LABS: AST(SGOT) 27 U/L (15-37); Alanine Aminotransfer ALT/SGPT 32 U/L (13-56); Albumin, Serum 4.1 g/dL (3.2-5.0); Alkaline Phosphatase 85 U/L (45-117); Anion Gap 7 (5-15); BUN 17 mg/dL (7-18); BUN/Creat Ratio 19.5 RATIO (10-20); Bilirubin, Direct 0.08 mg/dL (0.00-0.30); Calcium,Total 9.8 mg/dL (8.5-10.1); Chloride 98 mmol/L (98-107); Creatinine, Serum 0.87 mg/dL (0.55-1.02); EST Glomerular Filtration Rate 70 mL/min (>60); Est Glom Filt Rate - Afr Amer 85 mL/min (>60); Globulin 3.6 g/dL (2.2-4.2); Glucose 93 mg/dL (74-106); Potassium 3.6 mmol/L (3.5-5.1); Protein, Total 7.7 g/dL (6.4-8.2); Sodium Level 137 mmol/L (136-145)
== END 2019-12-23 18:00 | disposition home or self-care (01) ==
LOC: MTLAB 13:48
PROVIDERS: PCP Family Medicine
DX: C92.10 Chronic myeloid leukemia, BCR/ABL-positive, not having achieved remission (principal); J90 Pleural effusion, not elsewhere classified
CPT/HCPCS: 36415; 80048; 80076; 85025

== ENCOUNTER 2020-01-04 12:20 | Emergency (ER) | payer OTHER, SELFPAY ==
[2020-01-04 12:21] VITALS: BP 180/125; PULSE 83; RESP 15; TEMP 36.8; O2SAT 100; BMI 25.1
--- NOTE | 2020-01-04 12:33 | RAD_ITS ---
STUDY: X-RAY CHEST REASON FOR EXAM: Female, 59 years old. Chest pain, SOB -- chronic pleural effusion d/t cancer meds TECHNIQUE: Single AP portable view of the chest. COMPARISON: 09/16/2019 FINDINGS: Mild prominence of the pulmonary vasculature. No focal infiltrate is seen. Small bilateral pleural effusions larger on the left side new on the right side. Normal size heart. Normal mediastinum and zaire. Normal visualized pulmonary arteries. Normal visualized aortic arch and descending thoracic aorta. Normal visualized thoracic spine. Normal visualized ribs, clavicles, and shoulders. There is no demonstrated abnormality of the visualized soft tissue structures of the upper abdomen. RAD/Chest 1 View (Portable) IMPRESSION: Small bilateral pleural effusions larger on the left side. Possible mild pulmonary venous congestion. Electronically Signed: Bandar Kimbrough MD at 13:07 EST Tel , Service support ,
--- NOTE | 2020-01-04 12:33 | EKG12_ITS ---
Test Reason : CP Blood Pressure : / mmHG Vent. Rate : 084 BPM Atrial Rate : 084 BPM P-R Int : 162 ms QRS Dur : 100 ms QT Int : 398 ms P-R-T Axes : 051 014 027 degrees QTc Int : 470 ms Sinus rhythm with frequent Premature ventricular complexes Otherwise normal ECG Confirmed by JIMBO PETERS, ANAIS ([id number]), restaurant expeditor CHASITY AGUILAR ([id number]) on 01/06/2020 2:22:53 PM Referred By: VIBHA Confirmed By:ANAIS CHOI MD
--- NOTE | 2020-01-04 12:35 | ED.VIS.CHEST ---
History of Present Illness Chief Complaint: Chest Pain Informant: Patient Onset: Days - 2-3 Activity at onset: Unknown Timing: Intermittent Quality: Heaviness, Pressure Location: Substernal Current Severity: Moderate Maximum Severity: Moderate Worsened By: Nothing. Not Worsened By: Exertion, Movement of Arm, Movement of Torso, Palpation, Breathing, Coughing Relieved By: Nothing Associated Symptoms: Dyspnea, Palpitations. Negative for: Nausea, Vomiting, Diaphoresis, Cough, Fever, Lightheadedness Narrative: Patient has CML and is on oral chemotherapy that can cause pleural effusion, she has had a left-sided pleural effusion that is possibly from this chronically. She has never needed a thoracentesis, but states that at times it gets worse/bigger, and during those episodes, she has felt like this with nonpleuritic visceral-type chest pressure/heaviness and increase shortness of breath. She currently is having exertional dyspnea that settles when she rest, and it also gets worse with conversation. She has chronic orthopnea that is no worse. No fevers, chills. No peripheral edema. - Past Medical History (1) Pleural effusion Status: Chronic (2) Chronic myelocytic leukemia Status: Chronic (3) Hypertension Status: Chronic (4) Hypothyroid Status: Chronic Past Medical History - Allergies and Home Meds Allergies/Adverse Reactions: Allergies No Known Allergies Allergy (Verified 06/21/19 15:01) Primary Care Physician: Otto Cota MD [Primary Care Provider] - Lives: With Family Smoking Status: Never smoker Review of Systems General: Denies: Chills, Fever, Sweats Eyes: Denies: Visual changes - bilaterally, Diplopia ENT: Denies: Rhinorrhea, Sore throat Cardiovascular: Reports: Chest pain, Palpitations - Fluttering intermittently Respiratory: Reports: Dyspnea, Dyspnea on exertion, Orthopnea. Denies: Cough Gastrointestinal: Denies: Abdominal pain, Nausea, Vomiting, Diarrhea, Melena, Hematochezia Genitourinary: Denies: Dysuria, Hematuria, Frequency Musculoskeletal: Denies: Myalgias, Neck pain, Back pain, Extremity Pain Skin: Denies: Rash, Wounds Neurological: Denies: Headache, Weakness, Numbness Physical Exam Vital Signs/Narrative: Vital Signs Temp Pulse Resp BP Pulse Ox 01/04/20 12:21 98.2 F 83 15 180/125 H 100 Inital Vital Signs reviewed: Yes General: Well nourished, Well developed, No Acute Distress Head: Normocephalic, Atraumatic Eyes: Perrl, EOMI ENT: Moist mucous membranes, No rhinorrhea Neck: Supple, Nontender, No JVD Cardiovascular: Regular rate, Regular rhythm, No murmurs Respiratory: No distress, Chest nontender, Diminished - Left base Abdomen: Soft, Nontender, Nondistended, Normal bowel sounds Back: Nontender, Normal Inspection Extremities: Nontender, No edema. Negative for: Calf Tenderness Skin: Normal color, No rash, No Trauma Neurological: Alert, Oriented x3, Cranial nerves II-XII grossly intact, Normal Strength, Normal Sensation Psychological: Normal affect, Normal Mood Diagnostic/Tx/Re-eval Impressions Chest X-Ray 01/04/20 12:33 IMPRESSION: Small bilateral pleural effusions larger on the left side. Possible mild pulmonary venous congestion. Electronically Signed: Bandar Kimbrough MD at 13:07 EST Tel , Service support , 01/04/20 12:33 Chest 1 View (Portable) [RAD] Stat Laboratory Results 01/04/20 01/04/20 01/04/20 12:23 12:23 12:23 WBC 8.7 RBC 4.81 Hgb 12.9 Hct 41.6 MCV 86.5 MCH 26.8 L MCHC 31.0 L RDW Std Deviation 52.2 H RDW Coeff of Billy 16.3 H Plt Count 387 MPV 9.3 Immature Gran % (Auto) 0.200 Neut % (Auto) 63.5 Lymph % (Auto) 24.0 Swift % (Auto) 9.6 Eos % (Auto) 2.4 Baso % (Auto) 0.3 Absolute Neuts (auto) 5.5 Absolute Lymphs (auto) 2.10 Nucleated RBC % 0 Sodium 137 Potassium 3.4 L Chloride 100 Carbon Dioxide 31.0 Anion Gap 6 BUN 15 Creatinine 0.97 Estim Creat Clear Calc 54.80 Est GFR (MDRD) Af Amer 75 Est GFR (MDRD) Non-Af 62 BUN/Creatinine Ratio 15.4 Glucose 100 Calcium 9.9 Troponin I < 0.015 B-Natriuretic Peptide 67.4 - Rhythm Strip Rhythm Strip: Sinus Rhythm Rate: 84 Ectopy: PVC(s) - EKG Initial EKG Interpretation: Sinus Rhythm, No Acute Injury Pattern, - - ventricular ectopy; otherwise nml EKG Treatment: GI Cocktail - Medical Decision Making With the patient's work-up being unremarkable and chest x-ray showing pleural effusions with possible venous congestion, I obtained a beta natruretic peptide which returned very normal, reassuring. Initially she was given a GI cocktail which did not do much, and then after seeing the venous congestion which I think is more likely related to her symptoms than the pleural effusions which the patient was suggesting, nitroglycerin was ordered but her symptoms resolved prior to getting it and she feels better. On further discussion, she has been getting the symptoms for a long time off-and-on. It is certainly possible that this is related to 1 or more of the chemotherapy drops she has been treated with, she states she has been treated for CML for 14 years. Her oncologist is at [facility] [place]. She states she has an appointment with him on this week, today is Monday. She prefers not to wait for me to call and discuss with the on-call oncologist down there, she knows to return and wants to go home and I think that is fine. ED Disposition - Plan for ED Patient: Disposition: Home or Assisted Living Diagnosis: Chest pain, unspecified, Bilateral pleural effusion, Chronic myelocytic leukemia Instructions: Pulmonary Edema Referrals: Otto Cota MD [Primary Care Provider] - Keep Meme appointment (And/or your cancer doctor)
[2020-01-04] MEDS: Mag Hydrox/Al Hydrox/Simeth 30 ML UDC PO (12:39)
[2020-01-04 12:44] LABS: Absolute Neutrophil Count 5.5 X10^3/uL (2.0-7.7); Basophil# 0.03 X10^3/uL; Basophil% 0.3 % (0-1); Eosinophil# 0.21 X10^3/uL; Eosinophils% 2.4 % (0-5); Hematocrit 41.6 % (37-47); Hemoglobin 12.9 g/dL (12.0-15.0); Mean Corpuscular Hgb 26.8 pg (27.0-32.0); Mean Corpuscular Volume 86.5 fL (81-99); Mean Platelet Vol. 9.3 fl (6.2-12.0); Monocyte# 0.84 X10^3/uL; Monocyte% 9.6 % (0-10); NRBC Flagged by Analyzer 0 % (0-5); Neutrophil # 5.54 X10^3/uL (2.7-7.7); Neutrophil % 63.5 % (47-70); Platelet Count 387 K/mm3 (150-450); RBC Distribution Width CV 16.3 % (11.6-14.6); RBC Distribution Width SD 52.2 fl (35.1-43.9); Red Blood Count 4.81 M/mm3 (4.2-5.4); White Blood Count 8.7 K/mm3 (4.4-11.0)
[2020-01-04 12:54] LABS: Anion Gap 6 (5-15); BUN 15 mg/dL (7-18); BUN/Creat Ratio 15.4 RATIO (10-20); Calcium,Total 9.9 mg/dL (8.5-10.1); Chloride 100 mmol/L (98-107); Creatinine, Serum 0.97 mg/dL (0.55-1.02); EST Glomerular Filtration Rate 62 mL/min (>60); Est Glom Filt Rate - Afr Amer 75 mL/min (>60); Glucose 100 mg/dL (74-106); Potassium 3.4 mmol/L (3.5-5.1); Sodium Level 137 mmol/L (136-145)
[2020-01-04 13:08] VITALS: BP 150/83; PULSE 75; RESP 14; O2SAT 100
[2020-01-04 14:00] VITALS: BP 176/95; PULSE 84; RESP 16; O2SAT 99
[2020-01-04 14:40] LABS: BNP,B-Type NATRIURETIC PEPTIDE 67.4 pg/mL (0-100)
== END 2020-01-04 16:41 | disposition home or self-care (01) ==
PROVIDERS: Emergency Provider Emergency Medicine; PCP Family Medicine
DX: R07.9 Chest pain, unspecified (principal); J90 Pleural effusion, not elsewhere classified; C92.10 Chronic myeloid leukemia, BCR/ABL-positive, not having achieved remission; I49.3 Ventricular premature depolarization; I10 Essential (primary) hypertension; E03.9 Hypothyroidism, unspecified; Z79.899 Other long term (current) drug therapy
CPT/HCPCS: 71045; 80048; 83880; 84484; 85025; 93005; 99283; A4216

== ENCOUNTER → 2020-02-03 06:26 | Outpatient (CLI) | payer OTHER, SELFPAY ==
[2020-01-04 12:21] VITALS: BMI 25.1
--- NOTE | 2020-02-03 10:01 | STRESSREP_ITS ---
Stress Test Report Pharmacologic myocardial perfusion stress test. 60-year-old lady with a history of chest pain. Medications atenolol and indapamide. Stress protocol: Resting EKG demonstrates normal sinus rhythm with a rate of 73 bpm normal intervals are noted resting blood pressure is 1 and 32/70 4 mmHg. 0.4 mg of regadenoson was infused per usual protocol followed by rapid intravenous saline flush injection continuous EKG monitoring was performed. The maximum heart rate attained was 98 bpm which was 62% of max impacted heart rate the maximum wor kload was 1 metabolic equivalent. At rest there were no ST or T wave changes noted to suggest abnormal flow reserve at peak infusion nonspecific ST-T wave changes were noted we did not meet the criteria for ischemia. The resting blood pressure was 132/74 with a final blood pressure of 124/72 mmHg. Myocardial perfusion protocol. 11.3 mCi of technetium 99m sestamibi was injected at rest. 0.4 mg of regadenoson was infused per usual protocol peak infusion 33.3 mCi of technetium 99m sestamibi was injected stress images were obtained stress and rest images were reconstructed and compared in the short axis vertical long horizontal long axis. Gated images were also obtained per Perfusion SPECT analysis: Review of the images demonstrate normal uptake of tracer noted in all areas of the myocardium the resting images similar demonstrate normal uptake of tracer noted in all areas of the myocardium. No reversibility is noted suggest ischemia no previous infarct is noted. Gated SPECT analysis: The gated ejection fraction is over 60%. Conclusion: Normal pharmacologic myocardial perfusion stress test. Preserved ejection fraction.
== END ==
PROVIDERS: PCP Family Medicine; Referring Provider Family Medicine; Visit Provider Family Medicine
DX: R07.89 Other chest pain (principal)
CPT/HCPCS: 78452; 93017; A9500; A4216; J2785

== ENCOUNTER → 2020-02-17 10:57 | Outpatient (CLI) | payer OTHER, SELFPAY ==
[2020-02-05 13:43] VITALS: BMI 24.3
--- NOTE | 2020-02-17 11:00 | ECHODONC_ITS ---
Reason For Study: DYSPNEA Procedure This was a 2D Doppler, Color Flow transthoracic echocardiogram. Myocardial strain analysis was performed in this exam to aid in the assessment of cardiac function. Exam performed in department. Left Ventricle Normal LV size. Left ventricular systolic function is normal. The estimated ejection fraction is 60 %. Stage 1 diastolic dysfunction. No regional wall motion abnormalities noted. Right Ventricle Normal RV size. Normal systolic function. Atria Normal left atrium. Normal right atrium. Mitral Valve Normal mitral valve. Tricuspid Valve Normal tricuspid valve. Mild tricuspid valve insufficiency. Pulmonary artery systolic pressure is 38 mmHg. Aortic Valve Normal aortic valve. Trisinus/trileaflet aortic valve. Pulmonic Valve Normal pulmonic valve. Great Vessels Normal aortic root. The pulmonary artery is normal size. Normal inferior vena cava. Pericardium/Pleural No pericardial effusion. MMode/2D Measurements & Calculations LVIDd: 4.3 cm IVSd: 0.81 cm Ao root diam: 3.3 cm LVIDs: 2.8 cm LVPWd: 0.75 cm RVDd: 3.0 cm FS: 35.4 % LAV(MOD-bp): 44.3 ml LA A4 area: 17.4 cm2 LA dimension(2D): 3.9 cm LAV(MOD-bp) Indexed: 25.6 ml/m2 LAV(MOD-sp2): 42.3 ml LAV(MOD-sp4): 46.1 ml RA A4 area: 10.8 cm2 Time Measurements MV dec time: 0.20 sec Doppler Measurements & Calculations MV E max romain: 96.7 cm/sec Lat Peak E' Romain: 11.4 cm/sec Med Peak E' Romain: 6.5 cm/sec MV A max romain: 102.3 cm/sec E/E' lat: 8.5 E/E' med: 14.8 MV E/A: 0.95 Ao V2 max: 130.5 cm/sec LV V1 max: 130.1 cm/sec TR max romain: 292.6 cm/sec Ao max P.8 mmHg LV V1 max P.8 mmHg TR max P.2 mmHg Interpretation Summary Normal LV size. Left ventricular systolic function is normal. The estimated ejection fraction is 60 %. Stage 1 diastolic dysfunction. Pulmonary artery systolic pressure is 38 mmHg. The global longitudinal strain is normal. The global longitudinal strain = -22.8 % (normal). Ordering Physician: Roberto Moore Referring Physician: SHAE SHORT Performed By: Elaine Casarez, JESSY, RVT
== END ==
PROVIDERS: PCP Family Medicine; Referring Provider Internal Medicine Cardiovascular Disease; Visit Provider Internal Medicine Cardiovascular Disease
DX: I34.0 Nonrheumatic mitral (valve) insufficiency (principal)
CPT/HCPCS: 93306; 93356

== ENCOUNTER 2020-05-15 11:07 | Outpatient (RCR) | payer OTHER, SELFPAY ==
[2020-02-05 13:43] VITALS: BMI 24.3
[2020-05-15 12:26] LABS: Absolute Lymphocyte Count 1.41 X10^3/uL (0.83-4.51); Absolute Neutrophil Count 2.7 X10^3/uL (2.0-7.7); Basophil# 0.02 X10^3/uL; Basophil% 0.4 % (0-1); Eosinophil# 0.11 X10^3/uL; Eosinophils% 2.3 % (0-5); Hematocrit 38.3 % (37-47); Hemoglobin 12.3 g/dL (12.0-15.0); Lymphocyte # 1.41 X10^3/ul (4.0); Lymphocyte % 29.3 % (19-41); Mean Corp Hgb Conc 32.1 g/dL (32-36); Mean Corpuscular Hgb 28.9 pg (27.0-32.0); Mean Corpuscular Volume 89.9 fL (81-99); Mean Platelet Vol. 10.1 fl (6.2-12.0); Monocyte# 0.57 X10^3/uL; Monocyte% 11.9 % (0-10); NRBC Flagged by Analyzer 0 % (0-5); Neutrophil # 2.69 X10^3/uL (2.7-7.7); Neutrophil % 55.9 % (47-70); Platelet Count 305 K/mm3 (150-450); RBC Distribution Width CV 14.6 % (11.6-14.6); Red Blood Count 4.26 M/mm3 (4.2-5.4); White Blood Count 4.8 K/mm3 (4.4-11.0)
[2020-05-15 12:35] LABS: Amphetamine Urine VISTA NEGATIVE (<1000 ng/mL); Barbiturate Urine VISTA NEGATIVE (< 200 ng/mL); Benzodiazepine Urine VISTA NEGATIVE (< 200 ng/mL); Cocaine Urine VISTA NEGATIVE (< 300 ng/mL); Ecstacy Urine VISTA NEGATIVE (< 500 ng/mL); Methadone Urine VISTA NEGATIVE (< 300 ng/mL); PCP Urine VISTA NEGATIVE (< 25 ng/mL); THC Urine VISTA NEGATIVE (< 50 ng/mL); Vista UDS pH Range 6
[2020-05-15 13:16] LABS: ALB/GLOB Ratio 1.1 RATIO (0.9-2.4); AST(SGOT) 21 U/L (15-37); Alanine Aminotransfer ALT/SGPT 28 U/L (13-56); Albumin, Serum 4.2 g/dL (3.2-5.0); Alkaline Phosphatase 98 U/L (45-117); Anion Gap 7 (5-15); BUN 19 mg/dL (7-18); BUN/Creat Ratio 18.6 RATIO (10-20); Bilirubin, Direct 0.07 mg/dL (0.00-0.30); Calcium,Total 9.5 mg/dL (8.5-10.1); Chloride 100 mmol/L (98-107); Creatinine, Serum 1.02 mg/dL (0.55-1.02); EST Glomerular Filtration Rate 58 mL/min (>60); Est Glom Filt Rate - Afr Amer 71 mL/min (>60); Globulin 3.7 g/dL (2.2-4.2); Glucose 102 mg/dL (74-106); Potassium 3.9 mmol/L (3.5-5.1); Protein, Total 7.9 g/dL (6.4-8.2); Sodium Level 138 mmol/L (136-145); T4 Free Direct 1.65 ng/dL (0.76-1.46); Thyroid Stim Hormone (TSH) < 0.01 uIU/mL (0.358-3.74)
[2020-05-15 13:29] LABS: Microalbumin,Random Urine 7.7 mg/L (NO RANGE EST.); Microalbumin:Creatinine Ratio 45.3 mg/g CRE (<30 mg/g CRE)
== END 2020-05-15 18:00 | disposition home or self-care (01) ==
LOC: MTLAB 11:07
PROVIDERS: PCP Family Medicine
DX: C92.10 Chronic myeloid leukemia, BCR/ABL-positive, not having achieved remission (principal); J90 Pleural effusion, not elsewhere classified; I10 Essential (primary) hypertension; F98.8 Other specified behavioral and emotional disorders with onset usually occurring in childhood and adolescence
CPT/HCPCS: 36415; 80053; 80307; 82043; 82248; 82570; 83735; 84439; 84443; 85025

== ENCOUNTER → 2020-07-14 11:54 | Outpatient (CLI) | payer OTHER, SELFPAY ==
[2020-06-09 14:09] VITALS: BMI 25.4
--- NOTE | 2020-07-14 11:56 | BI_ITS ---
MAMMOGRAPHY - BILATERAL SCREENING 3-D TOMOSYNTHESIS REASON FOR EXAM: Female, 60 years old. SCREENING PERTINENT HISTORY: No significant family history. TECHNIQUE: 2-D mammograms and 3-D Tomosynthesis of the breast (s) were performed. CAD was performed. COMPARISON: 12/26/2018 FINDINGS: The breast composition is composed of scattered fibroglandular density. Scattered benign calcifications are seen. No dense spiculated masses or suspicious microcalcifications are identified. No architectural distortion is identified. There is no skin thickening or retraction. There has been no significant change since the prior study. BI/SCRN MAMM (CAD)W/CHRISTOPHER BILAT IMPRESSION: No mammographic signs of malignancy. Routine yearly mammograms recommended. ASSESSMENT CATEGORY: BIRADS Category 1: Negative. A letter regarding these results will be sent to the patient by the facility within 30 days. FOLLOW UP RECOMMENDATION: Yearly follow up mammogram recommended. (A) Approximately 10% of breast cancers are not detected by mammography. A normal mammogram should not delay biopsy of a clinically suspicious abnormality. Electronically Signed: Ihsan Sapp MD at 12:52 EDT , Service support ,
== END ==
PROVIDERS: PCP Family Medicine; Referring Provider Family Medicine; Visit Provider Family Medicine
DX: Z12.31 Encounter for screening mammogram for malignant neoplasm of breast (principal)
CPT/HCPCS: 77063; 77067

== ENCOUNTER → 2020-08-11 08:42 | Outpatient (CLI) | payer OTHER, SELFPAY ==
[2020-06-09 14:09] VITALS: BMI 25.4
[2020-08-11 10:53] LABS: T4 Free Direct 1.51 ng/dL (0.76-1.46); Thyroid Stim Hormone (TSH) < 0.01 uIU/mL (0.358-3.74)
== END ==
PROVIDERS: PCP Family Medicine; Referring Provider Family Medicine; Visit Provider Family Medicine
DX: E03.9 Hypothyroidism, unspecified (principal)
CPT/HCPCS: 36415; 84439; 84443

== ENCOUNTER 2020-11-04 12:19 | Outpatient (RCR) | payer OTHER, SELFPAY ==
[2020-02-05 13:43] VITALS: BMI 24.3
[2020-11-04 15:20] LABS: Absolute Lymphocyte Count 1.49 X10^3/uL (0.83-4.51); Absolute Neutrophil Count 2.4 X10^3/uL (2.0-7.7); Basophil# 0.03 X10^3/uL; Basophil% 0.7 % (0-1); Eosinophil# 0.13 X10^3/uL; Eosinophils% 2.8 % (0-5); Hematocrit 38.2 % (37-47); Hemoglobin 12.6 g/dL (12.0-15.0); Lymphocyte # 1.49 X10^3/ul (0.83-4.51); Lymphocyte % 32.3 % (19-41); Mean Corpuscular Hgb 29.6 pg (27.0-32.0); Mean Corpuscular Volume 89.9 fL (81-99); Mean Platelet Vol. 10.8 fl (6.2-12.0); Monocyte# 0.57 X10^3/uL; Monocyte% 12.4 % (0-10); NRBC Flagged by Analyzer 0 % (0-5); Neutrophil # 2.37 X10^3/uL (2.7-7.7); Neutrophil % 51.4 % (47-70); Platelet Count 349 K/mm3 (150-450); RBC Distribution Width SD 46.2 fl (35.1-43.9); Red Blood Count 4.25 M/mm3 (4.2-5.4); White Blood Count 4.6 K/mm3 (4.4-11.0)
[2020-11-04 16:08] LABS: AST(SGOT) 28 U/L (15-37); Alanine Aminotransfer ALT/SGPT 29 U/L (13-56); Albumin, Serum 3.9 g/dL (3.2-5.0); Alkaline Phosphatase 83 U/L (45-117); Anion Gap 5 (5-15); BUN 23 mg/dL (7-18); BUN/Creat Ratio 17.4 RATIO (10-20); Bilirubin, Direct 0.08 mg/dL (0.00-0.30); Chloride 104 mmol/L (98-107); Creatinine, Serum 1.32 mg/dL (0.55-1.02); EST Glomerular Filtration Rate 43 mL/min (>60); Est Glom Filt Rate - Afr Amer 52 mL/min (>60); Free T3 2.5 pg/mL (2.18-3.98); Globulin 3.6 g/dL (2.2-4.2); Glucose 113 mg/dL (74-106); Protein, Total 7.5 g/dL (6.4-8.2); Sodium Level 138 mmol/L (136-145); Thyroid Stim Hormone (TSH) 0.07 uIU/mL (0.358-3.74)
== END 2020-11-04 18:00 | disposition home or self-care (01) ==
LOC: MTLAB 12:19
PROVIDERS: PCP Family Medicine
DX: C92.10 Chronic myeloid leukemia, BCR/ABL-positive, not having achieved remission (principal); J90 Pleural effusion, not elsewhere classified; E03.9 Hypothyroidism, unspecified
CPT/HCPCS: 36415; 80048; 80076; 84439; 84443; 84481; 85025

== ENCOUNTER → 2020-11-16 10:42 | Outpatient (CLI) | payer OTHER, SELFPAY ==
[2020-11-16 12:27] LABS: Anion Gap 3 (5-15); BUN 15 mg/dL (7-18); BUN/Creat Ratio 14.6 RATIO (10-20); Calcium,Total 9.7 mg/dL (8.5-10.1); Chloride 99 mmol/L (98-107); Creatinine, Serum 1.03 mg/dL (0.55-1.02); EST Glomerular Filtration Rate 58 mL/min (>60); Est Glom Filt Rate - Afr Amer 70 mL/min (>60); Glucose 110 mg/dL (74-106); Potassium 3.9 mmol/L (3.5-5.1); Sodium Level 134 mmol/L (136-145)
== END ==
PROVIDERS: PCP Family Medicine
DX: C92.10 Chronic myeloid leukemia, BCR/ABL-positive, not having achieved remission (principal)
CPT/HCPCS: 36415; 80048

== ENCOUNTER 2021-03-17 11:13 | Outpatient (RCR) | payer OTHER, SELFPAY ==
[2020-11-27 02:18] VITALS: BMI 24.3
[2021-03-17 15:10] LABS: Absolute Lymphocyte Count 1.48 X10^3/uL (0.83-4.51); Absolute Neutrophil Count 2.7 X10^3/uL (2.0-7.7); Basophil# 0.04 X10^3/uL; Basophil% 0.8 % (0-1); Eosinophil# 0.24 X10^3/uL; Eosinophils% 4.6 % (0-5); Hematocrit 39.4 % (37-47); Hemoglobin 12.5 g/dL (12.0-15.0); Lymphocyte # 1.48 X10^3/ul (0.83-4.51); Lymphocyte % 28.3 % (19-41); Mean Corp Hgb Conc 31.7 g/dL (32-36); Mean Corpuscular Hgb 28.6 pg (27.0-32.0); Mean Corpuscular Volume 90.2 fL (81-99); Mean Platelet Vol. 9.7 fl (6.2-12.0); Monocyte# 0.77 X10^3/uL; Monocyte% 14.7 % (0-10); NRBC Flagged by Analyzer 0 % (0-5); Neutrophil # 2.68 X10^3/uL (2.7-7.7); Neutrophil % 51.2 % (47-70); Platelet Count 326 K/mm3 (150-450); RBC Distribution Width CV 14.4 % (11.6-14.6); RBC Distribution Width SD 47.8 fl (35.1-43.9); Red Blood Count 4.37 M/mm3 (4.2-5.4); White Blood Count 5.2 K/mm3 (4.4-11.0)
[2021-03-17 15:34] LABS: AST(SGOT) 20 U/L (15-37); Alanine Aminotransfer ALT/SGPT 29 U/L (13-56); Albumin, Serum 4.1 g/dL (3.2-5.0); Alkaline Phosphatase 86 U/L (45-117); Anion Gap 5 (5-15); BUN 19 mg/dL (7-18); BUN/Creat Ratio 14.6 RATIO (10-20); Bilirubin, Direct 0.08 mg/dL (0.00-0.30); Calcium,Total 10.2 mg/dL (8.5-10.1); Chloride 99 mmol/L (98-107); EST Glomerular Filtration Rate 44 mL/min (>60); Est Glom Filt Rate - Afr Amer 53 mL/min (>60); Globulin 3.9 g/dL (2.2-4.2); Glucose 112 mg/dL (74-106); Sodium Level 137 mmol/L (136-145)
== END 2021-03-29 18:00 | disposition home or self-care (01) ==
LOC: MTLAB 11:13
PROVIDERS: PCP Family Medicine; Visit Provider Nurse Practitioner Family
DX: C92.10 Chronic myeloid leukemia, BCR/ABL-positive, not having achieved remission (principal); F98.8 Other specified behavioral and emotional disorders with onset usually occurring in childhood and adolescence; I10 Essential (primary) hypertension; E03.9 Hypothyroidism, unspecified
CPT/HCPCS: 36415; 80048; 80076; 85025

== ENCOUNTER 2021-03-23 15:15 | Outpatient (CLI) | payer OTHER, SELFPAY ==
--- NOTE | 2021-03-23 15:16 | RAD_ITS ---
STUDY: X-RAY - LUMBOSACRAL SPINE REASON FOR EXAM: Female, 61 years old. Right medial iliac pain. History of CML. TECHNIQUE: view(s) of the lumbosacral spine were obtained. COMPARISON: None FINDINGS: Normal lumbar lordosis. There is no substantial scoliosis. There is normal alignment of the vertebrae. Result no ulceration with flexion or extension. Normal vertebral bodies and endplates. Normal disc space heights. Normal bilateral sacral ala, sacroiliac joints, and visualized sacrum. Normal visualized soft tissue structures. RAD/L/S Spine w Bend Min 6 Vw IMPRESSION: No acute abnormality of the lumbar spine Electronically Signed: Gennaro Ralph DO at 23:54 EST ,
== END 2021-03-23 23:59 | disposition short-term general hospital (02) ==
LOC: MTRAD 15:16
PROVIDERS: PCP Family Medicine; Referring Provider Family Medicine; Visit Provider Family Medicine
DX: M54.9 Dorsalgia, unspecified (principal)
CPT/HCPCS: 72114

== ENCOUNTER 2021-04-27 10:17 | Outpatient (CLI) | payer OTHER, SELFPAY ==
[2021-04-27 12:26] LABS: Hematocrit 38.9 % (37-47); Hemoglobin 12.8 g/dL (12.0-15.0); Mean Corp Hgb Conc 32.9 g/dL (32-36); Mean Corpuscular Hgb 29.2 pg (27.0-32.0); Mean Corpuscular Volume 88.8 fL (81-99); Mean Platelet Vol. 10.4 fl (6.2-12.0); Platelet Count 364 K/mm3 (150-450); RBC Distribution Width CV 13.8 % (11.6-14.6); RBC Distribution Width SD 44.8 fl (35.1-43.9); Red Blood Count 4.38 M/mm3 (4.2-5.4); White Blood Count 4.9 K/mm3 (4.4-11.0)
[2021-04-27 12:59] LABS: AST(SGOT) 20 U/L (15-37); Alanine Aminotransfer ALT/SGPT 22 U/L (13-56); Alkaline Phosphatase 98 U/L (45-117); Anion Gap 7 (5-15); BUN 17 mg/dL (7-18); Calcium,Total 9.8 mg/dL (8.5-10.1); Chloride 95 mmol/L (98-107); Creatinine, Serum 1.06 mg/dL (0.55-1.02); EST Glomerular Filtration Rate 56 mL/min (>60); Est Glom Filt Rate - Afr Amer 67 mL/min (>60); Globulin 3.9 g/dL (2.2-4.2); Glucose 82 mg/dL (74-106); Potassium 3.9 mmol/L (3.5-5.1); Protein, Total 7.9 g/dL (6.4-8.2); Sodium Level 134 mmol/L (136-145)
== END 2021-04-27 23:59 | disposition home or self-care (01) ==
PROVIDERS: PCP Family Medicine; Visit Provider Nurse Practitioner Family
DX: C92.10 Chronic myeloid leukemia, BCR/ABL-positive, not having achieved remission (principal)
CPT/HCPCS: 36415; 80053; 85027

== ENCOUNTER 2021-06-23 15:19 | Outpatient (RCR) | payer OTHER, SELFPAY ==
[2021-03-30 02:44] VITALS: BMI 24.3
[2021-06-23 17:44] LABS: Absolute Lymphocyte Count 1.23 X10^3/uL (0.83-4.51); Absolute Neutrophil Count 4.3 X10^3/uL (2.0-7.7); Basophil# 0.05 X10^3/uL; Basophil% 0.8 % (0-1); Eosinophil# 0.15 X10^3/uL; Eosinophils% 2.3 % (0-5); Hematocrit 38.3 % (37-47); Hemoglobin 12.6 g/dL (12.0-15.0); Lymphocyte # 1.23 X10^3/ul (0.83-4.51); Mean Corp Hgb Conc 32.9 g/dL (32-36); Mean Corpuscular Hgb 28.4 pg (27.0-32.0); Mean Corpuscular Volume 86.3 fL (81-99); Mean Platelet Vol. 11.3 fl (6.2-12.0); Monocyte# 0.77 X10^3/uL; Monocyte% 11.9 % (0-10); NRBC Flagged by Analyzer 0 % (0-5); Neutrophil # 4.26 X10^3/uL (2.7-7.7); Neutrophil % 65.8 % (47-70); Platelet Count 293 K/mm3 (150-450); RBC Distribution Width CV 13.2 % (11.6-14.6); RBC Distribution Width SD 41.7 fl (35.1-43.9); Red Blood Count 4.44 M/mm3 (4.2-5.4); White Blood Count 6.5 K/mm3 (4.4-11.0)
[2021-06-23 18:46] LABS: AST(SGOT) 22 U/L (15-37); Alanine Aminotransfer ALT/SGPT 22 U/L (13-56); Albumin, Serum 4.3 g/dL (3.2-5.0); Alkaline Phosphatase 91 U/L (45-117); Anion Gap 7 (5-15); BUN 26 mg/dL (7-18); BUN/Creat Ratio 21.8 RATIO (10-20); Chloride 95 mmol/L (98-107); Creatinine, Serum 1.19 mg/dL (0.55-1.02); EST Glomerular Filtration Rate 49 mL/min (>60); Est Glom Filt Rate - Afr Amer 59 mL/min (>60); Globulin 3.5 g/dL (2.2-4.2); Glucose 108 mg/dL (74-106); Potassium 4.1 mmol/L (3.5-5.1); Protein, Total 7.8 g/dL (6.4-8.2); Sodium Level 133 mmol/L (136-145)
== END 2021-06-23 18:00 | disposition home or self-care (01) ==
LOC: MTLAB 15:19
PROVIDERS: PCP Family Medicine
DX: C92.10 Chronic myeloid leukemia, BCR/ABL-positive, not having achieved remission (principal)
CPT/HCPCS: 36415; 80048; 80076; 85025

== ENCOUNTER → 2021-07-19 | Outpatient (CLI) | payer OTHER, SELFPAY ==
[2021-07-19 15:35] LABS: Amphetamine Urine VISTA NEGATIVE (<1000 ng/mL); Barbiturate Urine VISTA NEGATIVE (< 200 ng/mL); Benzodiazepine Urine VISTA NEGATIVE (< 200 ng/mL); Cocaine Urine VISTA NEGATIVE (< 300 ng/mL); Ecstacy Urine VISTA NEGATIVE (< 500 ng/mL); Methadone Urine VISTA NEGATIVE (< 300 ng/mL); PCP Urine VISTA NEGATIVE (< 25 ng/mL); THC Urine VISTA NEGATIVE (< 50 ng/mL); Vista UDS pH Range 5
[2021-07-19 15:39] LABS: Hemoglobin A1c 5.8 % (3.8-5.6)
[2021-07-19 15:42] LABS: Microalbumin,Random Urine 5.8 mg/L (NO RANGE EST.); Microalbumin:Creatinine Ratio 15.4 mg/g CRE (<30 mg/g CRE)
[2021-07-19 15:57] LABS: AST(SGOT) 19 U/L (15-37); Alanine Aminotransfer ALT/SGPT 20 U/L (13-56); Albumin, Serum 4.1 g/dL (3.2-5.0); Alkaline Phosphatase 104 U/L (45-117); Anion Gap 6 (5-15); BUN 22 mg/dL (7-18); BUN/Creat Ratio 19.8 RATIO (10-20); Calcium,Total 10.7 mg/dL (8.5-10.1); Chloride 101 mmol/L (98-107); Creatinine, Serum 1.11 mg/dL (0.55-1.02); EST Glomerular Filtration Rate 53 mL/min (>60); Est Glom Filt Rate - Afr Amer 64 mL/min (>60); Glucose 95 mg/dL (74-106); Potassium 4.3 mmol/L (3.5-5.1); Protein, Total 8.1 g/dL (6.4-8.2); Sodium Level 137 mmol/L (136-145); Thyroid Stim Hormone (TSH) 0.01 uIU/mL (0.358-3.74)
[2021-07-20 14:29] LABS: Free T3 3.3 pg/mL (2.18-3.98); T4 Free Direct 1.31 ng/dL (0.76-1.46)
== END | disposition home or self-care (01) ==
LOC: MFPLAB 12:04
PROVIDERS: PCP Family Medicine; Visit Provider Family Medicine
DX: R79.89 Other specified abnormal findings of blood chemistry (principal); E03.9 Hypothyroidism, unspecified; N18.2 Chronic kidney disease, stage 2 (mild); I12.9 Hypertensive chronic kidney disease with stage 1 through stage 4 chronic kidney disease, or unspecified chronic kidney disease
CPT/HCPCS: 36415; 80053; 80307; 82043; 82570; 83036; 84439; 84443; 84481

== ENCOUNTER → 2021-08-17 | Outpatient (CLI) | payer OTHER, SELFPAY ==
--- NOTE | 2021-08-17 10:32 | BI_ITS ---
MAMMOGRAPHY - BILATERAL SCREENING REASON FOR EXAM: Female, 61 years old. Routine annual screening examination. PERTINENT HISTORY: Grandmother with breast cancer. TECHNIQUE: Digital bilateral breast christopher (3D mammographic acquisition) in the CC and MLO projections. 2-D mediolateral oblique (MLO) and craniocaudad (CC) views of both breasts were obtained. CAD: Full Field Digital Mammography with Computer Added Detection was performed. COMPARISON: Comparison Mammogram study is dated 07/14/2020, 12/26/2018, 07/19/2017. FINDINGS: Breast Composition: There are scattered areas of fibroglandular density. There are no dominant masses or suspicious calcifications. No other significant abnormalities are identified. There has been no significant change since the prior study. BI/SCRN MAMM (CAD)W/CHRISTOPHER BILAT IMPRESSION: Stable bilateral screening mammogram. Yearly follow-up mammogram recommended. (A) ASSESSMENT CATEGORY: BIRADS Category 1: Negative. A letter regarding these results will be sent to the patient by the facility within 30 days. Approximately 10% of breast cancers are not detected by mammography. A normal mammogram should not delay biopsy of a clinically suspicious abnormality. [id number] Electronically Signed: Jj Nagel, at 15:52 EDT ,
== END | disposition home or self-care (01) ==
LOC: OPBI 10:31
PROVIDERS: PCP Family Medicine; Referring Provider Family Medicine; Visit Provider Family Medicine
DX: Z12.31 Encounter for screening mammogram for malignant neoplasm of breast (principal)
CPT/HCPCS: 77063; 77067

== ENCOUNTER 2021-10-05 11:00 | Outpatient (RCR) | payer OTHER, SELFPAY ==
[2021-06-27 04:03] VITALS: BMI 24.3
[2021-10-05 12:18] LABS: Absolute Lymphocyte Count 1.11 X10^3/uL (0.83-4.51); Absolute Neutrophil Count 3.9 X10^3/uL (2.0-7.7); Basophil# 0.04 X10^3/uL; Basophil% 0.7 % (0-1); Eosinophil# 0.18 X10^3/uL; Hemoglobin 13.1 g/dL (12.0-15.0); Lymphocyte # 1.11 X10^3/ul (0.83-4.51); Lymphocyte % 18.3 % (19-41); Mean Corp Hgb Conc 33.6 g/dL (32-36); Mean Corpuscular Hgb 29.2 pg (27.0-32.0); Mean Corpuscular Volume 86.9 fL (81-99); Monocyte# 0.79 X10^3/uL; Monocyte% 13.1 % (0-10); NRBC Flagged by Analyzer 0 % (0-5); Neutrophil % 64.4 % (47-70); Platelet Count 296 K/mm3 (150-450); RBC Distribution Width CV 13.5 % (11.6-14.6); RBC Distribution Width SD 43.1 fl (35.1-43.9); Red Blood Count 4.49 M/mm3 (4.2-5.4); White Blood Count 6.1 K/mm3 (4.4-11.0)
[2021-10-05 12:42] LABS: AST(SGOT) 24 U/L (15-37); Alanine Aminotransfer ALT/SGPT 22 U/L (13-56); Albumin, Serum 3.8 g/dL (3.2-5.0); Alkaline Phosphatase 105 U/L (45-117); Anion Gap 5 (5-15); BUN 22 mg/dL (7-18); Bilirubin, Direct 0.11 mg/dL (0.00-0.30); Chloride 99 mmol/L (98-107); Creatinine, Serum 1.05 mg/dL (0.55-1.02); EST Glomerular Filtration Rate 56 mL/min (>60); Est Glom Filt Rate - Afr Amer 68 mL/min (>60); Globulin 3.9 g/dL (2.2-4.2); Glucose 109 mg/dL (74-106); Protein, Total 7.7 g/dL (6.4-8.2); Sodium Level 136 mmol/L (136-145)
[2021-10-05 13:05] LABS: Free T3 2.6 pg/mL (2.18-3.98); T4 Free Direct 1.02 ng/dL (0.76-1.46); T4 Total, Thyroxin 11.5 ug/dL (4.8-13.9)
== END 2021-10-05 18:00 | disposition home or self-care (01) ==
LOC: MTLAB 11:00
PROVIDERS: PCP Family Medicine
DX: C92.10 Chronic myeloid leukemia, BCR/ABL-positive, not having achieved remission (principal); E03.9 Hypothyroidism, unspecified
CPT/HCPCS: 36415; 80048; 80076; 84436; 84439; 84481; 85025

== ENCOUNTER 2022-01-27 11:05 | Outpatient (RCR) | payer OTHER, SELFPAY ==
[2021-10-28 01:17] VITALS: BMI 24.3
[2022-01-27 12:14] LABS: Absolute Lymphocyte Count 1.41 X10^3/uL (0.83-4.51); Absolute Neutrophil Count 3.9 X10^3/uL (2.0-7.7); Basophil# 0.04 X10^3/uL; Basophil% 0.6 % (0-1); Eosinophils% 3.1 % (0-5); Hemoglobin 12.8 g/dL (12.0-15.0); Lymphocyte # 1.41 X10^3/ul (0.83-4.51); Lymphocyte % 22.1 % (19-41); Mean Corpuscular Hgb 28.4 pg (27.0-32.0); Mean Corpuscular Volume 88.9 fL (81-99); Mean Platelet Vol. 10.6 fl (6.2-12.0); Monocyte# 0.81 X10^3/uL; Monocyte% 12.7 % (0-10); Neutrophil # 3.87 X10^3/uL (2.7-7.7); Neutrophil % 60.7 % (47-70); Platelet Count 282 K/mm3 (150-450); RBC Distribution Width SD 42.4 fl (35.1-43.9); White Blood Count 6.4 K/mm3 (4.4-11.0)
[2022-01-27 12:15] LABS: NRBC Flagged by Analyzer 0 % (0-5)
[2022-01-27 12:40] LABS: Vitamin D,25 Hydroxy 62.9 ng/mL
[2022-01-27 13:15] LABS: Creatinine, Urine (random) < 13.00 mg/dL (NO RANGE EST.); Microalbumin,Random Urine < 5.0 mg/L (NO RANGE EST.)
[2022-01-27 13:31] LABS: ALB/GLOB Ratio 1.2 RATIO (0.9-2.4); AST(SGOT) 21 U/L (15-37); Alanine Aminotransfer ALT/SGPT 24 U/L (13-56); Alkaline Phosphatase 102 U/L (45-117); Anion Gap 6 (5-15); BUN 17 mg/dL (7-18); BUN/Creat Ratio 18.7 RATIO (10-20); Bilirubin, Direct 0.07 mg/dL (0.00-0.30); Calcium,Total 9.7 mg/dL (8.5-10.1); Chloride 99 mmol/L (98-107); Creatinine, Serum 0.91 mg/dL (0.55-1.02); EST Glomerular Filtration Rate 66 mL/min (>60); Est Glom Filt Rate - Afr Amer 80 mL/min (>60); Globulin 3.2 g/dL (2.2-4.2); Glucose 92 mg/dL (74-106); Protein, Total 7.2 g/dL (6.4-8.2); Sodium Level 137 mmol/L (136-145); T4 Free Direct 1.08 ng/dL (0.76-1.46); Thyroid Stim Hormone (TSH) 0.04 uIU/mL (0.358-3.74)
== END 2022-01-27 18:00 | disposition home or self-care (01) ==
LOC: MTLAB 11:05
PROVIDERS: PCP Family Medicine
DX: C92.10 Chronic myeloid leukemia, BCR/ABL-positive, not having achieved remission (principal); E03.9 Hypothyroidism, unspecified; N18.2 Chronic kidney disease, stage 2 (mild); I12.9 Hypertensive chronic kidney disease with stage 1 through stage 4 chronic kidney disease, or unspecified chronic kidney disease
CPT/HCPCS: 36415; 80053; 82043; 82248; 82306; 82570; 84439; 84443; 85025

== ENCOUNTER 2022-06-02 10:39 | Outpatient (RCR) | payer OTHER, SELFPAY ==
[2022-02-27 06:43] VITALS: BMI 24.3
[2022-06-02 12:25] LABS: Absolute Lymphocyte Count 1.36 X10^3/uL (0.83-4.51); Absolute Neutrophil Count 4.3 X10^3/uL (2.0-7.7); Basophil# 0.05 X10^3/uL; Basophil% 0.8 % (0-1); Eosinophil# 0.23 X10^3/uL; Eosinophils% 3.5 % (0-5); Hematocrit 42.1 % (37-47); Hemoglobin 13.4 g/dL (12.0-15.0); Lymphocyte # 1.36 X10^3/ul (0.83-4.51); Lymphocyte % 20.5 % (19-41); Mean Corp Hgb Conc 31.8 g/dL (32-36); Mean Corpuscular Hgb 27.9 pg (27.0-32.0); Mean Corpuscular Volume 87.7 fL (81-99); Mean Platelet Vol. 10.7 fl (6.2-12.0); Monocyte# 0.68 X10^3/uL; Monocyte% 10.2 % (0-10); NRBC Flagged by Analyzer 0 % (0-5); Neutrophil # 4.31 X10^3/uL (2.7-7.7); Neutrophil % 64.7 % (47-70); Platelet Count 314 K/mm3 (150-450); White Blood Count 6.7 K/mm3 (4.4-11.0)
[2022-06-02 13:01] LABS: ALB/GLOB Ratio 1.2 RATIO (0.9-2.4); AST(SGOT) 19 U/L (15-37); Alanine Aminotransfer ALT/SGPT 23 U/L (13-56); Albumin, Serum 4.1 g/dL (3.2-5.0); Alkaline Phosphatase 102 U/L (45-117); Anion Gap 6 (5-15); BUN 22 mg/dL (7-18); BUN/Creat Ratio 21.4 RATIO (10-20); Calcium,Total 9.8 mg/dL (8.5-10.1); Chloride 99 mmol/L (98-107); Creatinine, Serum 1.03 mg/dL (0.55-1.02); EST Glomerular Filtration Rate 57 mL/min (>60); Est Glom Filt Rate - Afr Amer 69 mL/min (>60); Globulin 3.5 g/dL (2.2-4.2); Glucose 103 mg/dL (74-106); Potassium 3.7 mmol/L (3.5-5.1); Protein, Total 7.6 g/dL (6.4-8.2); Sodium Level 135 mmol/L (136-145); T4 Free Direct 1.11 ng/dL (0.76-1.46); Thyroid Stim Hormone (TSH) 0.05 uIU/mL (0.358-3.74)
== END 2022-06-26 05:33 | disposition home or self-care (01) ==
LOC: MTLAB 10:39
PROVIDERS: PCP Family Medicine
DX: C92.10 Chronic myeloid leukemia, BCR/ABL-positive, not having achieved remission (principal); E03.9 Hypothyroidism, unspecified; I10 Essential (primary) hypertension
CPT/HCPCS: 36415; 80053; 84439; 84443; 85025

== ENCOUNTER → 2022-08-01 | Outpatient (CLI) | payer OTHER, SELFPAY ==
[2022-08-01 18:07] LABS: Free T3 2.7 pg/mL (2.18-3.98); T4 Free Direct 1.08 ng/dL (0.76-1.46); Thyroid Stim Hormone (TSH) 0.09 uIU/mL (0.358-3.74)
== END | disposition home or self-care (01) ==
LOC: MTLAB 14:46
PROVIDERS: PCP Family Medicine; Referring Provider Family Medicine; Visit Provider Family Medicine
DX: E03.9 Hypothyroidism, unspecified (principal)
CPT/HCPCS: 36415; 84439; 84443; 84481

== ENCOUNTER 2022-10-18 12:46 | Outpatient (RCR) | payer OTHER, SELFPAY ==
[2022-06-26 05:33] VITALS: BMI 24.3
[2022-09-30 15:01] LABS: Absolute Lymphocyte Count 1.34 X10^3/uL (0.83-4.51); Absolute Neutrophil Count 3.3 X10^3/uL (2.0-7.7); Basophil# 0.04 X10^3/uL; Basophil% 0.7 % (0-1); Eosinophil# 0.16 X10^3/uL; Eosinophils% 2.9 % (0-5); Hematocrit 39.4 % (37-47); Hemoglobin 12.8 g/dL (12.0-15.0); Lymphocyte # 1.34 X10^3/ul (0.83-4.51); Lymphocyte % 24.7 % (19-41); Mean Corp Hgb Conc 32.5 g/dL (32-36); Mean Corpuscular Hgb 28.4 pg (27.0-32.0); Mean Corpuscular Volume 87.6 fL (81-99); Mean Platelet Vol. 10.6 fl (6.2-12.0); Monocyte# 0.63 X10^3/uL; Monocyte% 11.6 % (0-10); NRBC Flagged by Analyzer 0 % (0-5); Neutrophil # 3.26 X10^3/uL (2.7-7.7); Neutrophil % 60.1 % (47-70); Platelet Count 292 K/mm3 (150-450); RBC Distribution Width CV 13.2 % (11.6-14.6); RBC Distribution Width SD 42.1 fl (35.1-43.9); White Blood Count 5.4 K/mm3 (4.4-11.0)
[2022-10-18 15:53] LABS: ALB/GLOB Ratio 1.1 RATIO (0.9-2.4); AST(SGOT) 22 U/L (15-37); Alanine Aminotransfer ALT/SGPT 29 U/L (13-56); Albumin, Serum 3.8 g/dL (3.2-5.0); Alkaline Phosphatase 98 U/L (45-117); Anion Gap 6 (5-15); BUN 18 mg/dL (7-18); BUN/Creat Ratio 16.2 RATIO (10-20); Calcium,Total 9.8 mg/dL (8.5-10.1); Chloride 102 mmol/L (98-107); Creatinine, Serum 1.11 mg/dL (0.55-1.02); EST Glomerular Filtration Rate 53 mL/min (>60); Est Glom Filt Rate - Afr Amer 64 mL/min (>60); Globulin 3.5 g/dL (2.2-4.2); Glucose 107 mg/dL (74-106); Protein, Total 7.3 g/dL (6.4-8.2); Sodium Level 139 mmol/L (136-145)
== END 2022-10-18 18:00 | disposition home or self-care (01) ==
LOC: MTLAB 12:46
PROVIDERS: PCP Family Medicine
DX: C92.10 Chronic myeloid leukemia, BCR/ABL-positive, not having achieved remission (principal); E03.9 Hypothyroidism, unspecified; F98.8 Other specified behavioral and emotional disorders with onset usually occurring in childhood and adolescence; K58.9 Irritable bowel syndrome, unspecified; I10 Essential (primary) hypertension
CPT/HCPCS: 36415; 80053; 85025

== ENCOUNTER → 2022-11-01 | Outpatient (CLI) | payer OTHER, SELFPAY ==
[2022-11-01 12:44] LABS: T4 Free Direct 1.16 ng/dL (0.76-1.46); Thyroid Stim Hormone (TSH) 0.51 uIU/mL (0.358-3.74)
== END | disposition home or self-care (01) ==
LOC: MTLAB 10:23
PROVIDERS: PCP Family Medicine; Referring Provider Family Medicine; Visit Provider Family Medicine
DX: E03.9 Hypothyroidism, unspecified (principal)
CPT/HCPCS: 36415; 84439; 84443

== ENCOUNTER 2023-01-23 12:59 | Outpatient (RCR) | payer MEDICARE, OTHER, SELFPAY ==
[2022-10-28 02:29] VITALS: BMI 24.3
[2023-01-23 15:19] LABS: Absolute Lymphocyte Count 1.46 X10^3/uL (0.83-4.51); Absolute Neutrophil Count 4.7 X10^3/uL (2.0-7.7); Basophil# 0.05 X10^3/uL; Basophil% 0.7 % (0-1); Eosinophil# 0.19 X10^3/uL; Eosinophils% 2.7 % (0-5); Hematocrit 39.5 % (37-47); Hemoglobin 12.5 g/dL (12.0-15.0); Lymphocyte # 1.46 X10^3/ul (0.83-4.51); Lymphocyte % 20.5 % (19-41); Mean Corp Hgb Conc 31.6 g/dL (32-36); Mean Corpuscular Hgb 28.3 pg (27.0-32.0); Mean Corpuscular Volume 89.6 fL (81-99); Mean Platelet Vol. 10.8 fl (6.2-12.0); Monocyte# 0.66 X10^3/uL; Monocyte% 9.3 % (0-10); NRBC Flagged by Analyzer 0 % (0-5); Neutrophil # 4.73 X10^3/uL (2.7-7.7); Neutrophil % 66.2 % (47-70); Platelet Count 307 K/mm3 (150-450); RBC Distribution Width CV 13.2 % (11.6-14.6); RBC Distribution Width SD 43.2 fl (35.1-43.9); Red Blood Count 4.41 M/mm3 (4.2-5.4); White Blood Count 7.1 K/mm3 (4.4-11.0)
[2023-01-23 16:01] LABS: ALB/GLOB Ratio 1.1 RATIO (0.9-2.4); AST(SGOT) 23 U/L (15-37); Alanine Aminotransfer ALT/SGPT 19 U/L (13-56); Alkaline Phosphatase 104 U/L (45-117); Anion Gap 8 (5-15); BUN 16 mg/dL (7-18); BUN/Creat Ratio 13.8 RATIO (10-20); Calcium,Total 9.7 mg/dL (8.5-10.1); Chloride 100 mmol/L (98-107); Creatinine, Serum 1.16 mg/dL (0.55-1.02); EST Glomerular Filtration Rate 50 mL/min (>60); Est Glom Filt Rate - Afr Amer 60 mL/min (>60); Globulin 3.6 g/dL (2.2-4.2); Glucose 106 mg/dL (74-106); Potassium 3.9 mmol/L (3.5-5.1); Protein, Total 7.6 g/dL (6.4-8.2); Sodium Level 137 mmol/L (136-145)
== END 2023-01-26 18:00 | disposition home or self-care (01) ==
LOC: MTLAB 12:59
PROVIDERS: PCP Family Medicine
DX: C92.10 Chronic myeloid leukemia, BCR/ABL-positive, not having achieved remission (principal)
CPT/HCPCS: 36415; 80053; 85025

== ENCOUNTER 2023-07-28 11:38 | Outpatient (RCR) | payer MEDICARE, OTHER, SELFPAY ==
[2023-07-28 15:54] LABS: Absolute Lymphocyte Count 1.55 X10^3/uL (0.83-4.51); Absolute Neutrophil Count 4.5 X10^3/uL (2.0-7.7); Basophil# 0.05 X10^3/uL; Basophil% 0.7 % (0-1); Eosinophil# 0.26 X10^3/uL; Eosinophils% 3.7 % (0-5); Hemoglobin 13.1 g/dL (12.0-15.0); Lymphocyte # 1.55 X10^3/ul (0.83-4.51); Mean Corpuscular Hgb 28.3 pg (27.0-32.0); Mean Corpuscular Volume 88.6 fL (81-99); Mean Platelet Vol. 10.8 fl (6.2-12.0); Monocyte# 0.67 X10^3/uL; Monocyte% 9.5 % (0-10); NRBC Flagged by Analyzer 0 % (0-5); Neutrophil # 4.47 X10^3/uL (2.7-7.7); Neutrophil % 63.7 % (47-70); Platelet Count 321 K/mm3 (150-450); RBC Distribution Width CV 13.2 % (11.6-14.6); RBC Distribution Width SD 42.6 fl (35.1-43.9); Red Blood Count 4.63 M/mm3 (4.2-5.4)
[2023-07-28 16:16] LABS: AST(SGOT) 16 U/L (15-37); Alanine Aminotransfer ALT/SGPT 18 U/L (13-56); Alkaline Phosphatase 102 U/L (45-117); Anion Gap 9 (5-15); BUN 24 mg/dL (7-18); Calcium,Total 9.8 mg/dL (8.5-10.1); Chloride 98 mmol/L (98-107); Cholesterol 282 mg/dL (200); Creatinine, Serum 0.96 mg/dL (0.55-1.02); EST Glomerular Filtration Rate 62 mL/min (>60); Est Glom Filt Rate - Afr Amer 75 mL/min (>60); Globulin 3.9 g/dL (2.2-4.2); Glucose 121 mg/dL (74-106); High Density Lipoprotein 42 mg/dL; Potassium 3.9 mmol/L (3.5-5.1); Protein, Total 7.9 g/dL (6.4-8.2); Sodium Level 134 mmol/L (136-145); T4 Free Direct 1.23 ng/dL (0.76-1.46); Thyroid Stim Hormone (TSH) 0.12 uIU/mL (0.358-3.74); Triglycerides 328 mg/dL; Very Low Density Lipoprotein 66 mg/dL (5-40)
[2023-07-28 17:43] LABS: Microalbumin,Random Urine 32.6 mg/L (NO RANGE EST.); Microalbumin:Creatinine Ratio 122.1 mg/g CRE (<30 mg/g CRE)
== END 2023-07-28 18:00 | disposition home or self-care (01) ==
LOC: MTLAB 11:38
PROVIDERS: PCP Family Medicine
DX: C92.10 Chronic myeloid leukemia, BCR/ABL-positive, not having achieved remission (principal); E03.9 Hypothyroidism, unspecified; Z13.220 Encounter for screening for lipoid disorders; I10 Essential (primary) hypertension
CPT/HCPCS: 36415; 80053; 80061; 82043; 82570; 84439; 84443; 85025

== ENCOUNTER → 2023-09-05 | Outpatient (CLI) | payer MEDICARE, OTHER, SELFPAY ==
--- NOTE | 2023-09-05 10:09 | BI_ITS ---
MAMMOGRAPHY - BILATERAL SCREENING REASON FOR EXAM: Female, 63 years old. Routine annual screening examination. PERTINENT HISTORY: Grandmother with breast cancer. TECHNIQUE: Digital bilateral breast christopher (3D mammographic acquisition) in the CC and MLO projections. 2-D mediolateral oblique (MLO) and craniocaudad (CC) views of both breasts were obtained. CAD: Full Field Digital Mammography with Computer Added Detection was performed. COMPARISON: Comparison is made with prior study dated August 17, 2021 and July 14, 2020. FINDINGS: Breast Composition: There are scattered areas of fibroglandular density. There are no dominant masses or suspicious calcifications. No other significant abnormalities are identified. There has been no significant change since the prior study. BI/SCRN MAMM (CAD)W/CHRISTOPHER BILAT IMPRESSION: Stable bilateral screening mammogram. Yearly follow-up mammogram recommended. (A) ASSESSMENT CATEGORY: BIRADS Category 1: Negative. A letter regarding these results will be sent to the patient by the facility within 30 days. Approximately 10% of breast cancers are not detected by mammography. A normal mammogram should not delay biopsy of a clinically suspicious abnormality. [id number] Electronically Signed: Qamar Day MD at 12:27 EDT ,
== END | disposition home or self-care (01) ==
LOC: OPBI 10:07
PROVIDERS: PCP Family Medicine; Referring Provider Family Medicine; Visit Provider Family Medicine
DX: Z12.31 Encounter for screening mammogram for malignant neoplasm of breast (principal); Z80.3 Family history of malignant neoplasm of breast
CPT/HCPCS: 77063; 77067

== ENCOUNTER → 2023-09-08 | Outpatient (CLI) | payer MEDICARE, OTHER, SELFPAY ==
[2023-09-08 13:11] LABS: ALB/GLOB Ratio 1.1 RATIO (0.9-2.4); AST(SGOT) 19 U/L (15-37); Alanine Aminotransfer ALT/SGPT 19 U/L (13-56); Alkaline Phosphatase 109 U/L (45-117); Anion Gap 7 (5-15); BUN 20 mg/dL (7-18); BUN/Creat Ratio 24.5 RATIO (10-20); Calcium,Total 10.3 mg/dL (8.5-10.1); Chloride 99 mmol/L (98-107); Creatinine, Serum 0.82 mg/dL (0.55-1.02); EST Glomerular Filtration Rate 75 mL/min (>60); Est Glom Filt Rate - Afr Amer 90 mL/min (>60); Free T3 2.8 pg/mL (2.18-3.98); Globulin 3.7 g/dL (2.2-4.2); Glucose 94 mg/dL (74-106); Potassium 3.8 mmol/L (3.5-5.1); Protein, Total 7.7 g/dL (6.4-8.2); Sodium Level 136 mmol/L (136-145); T4 Free Direct 1.18 ng/dL (0.76-1.46); Thyroid Stim Hormone (TSH) 0.07 uIU/mL (0.358-3.74)
== END | disposition home or self-care (01) ==
LOC: MTLAB 11:14
PROVIDERS: PCP Family Medicine; Referring Provider Family Medicine; Visit Provider Family Medicine
DX: E78.5 Hyperlipidemia, unspecified (principal); E03.9 Hypothyroidism, unspecified
CPT/HCPCS: 36415; 80053; 84439; 84443; 84481

== ENCOUNTER 2023-10-17 08:45 | Outpatient (CLI) | payer MEDICARE, OTHER, SELFPAY ==
--- NOTE | 2023-10-17 08:46 | BD_ITS ---
STUDY: DUAL ENERGY X-RAY ABSORPTIOMETRY / DXA REASON FOR EXAM: Female, 63 years old. V76.12ScreeningBONE DENSITY REASON FOR EXAM TECHNIQUE: Bone Mineral Density (BMD) measurements of lumbar spine and bilateral hips were obtained. COMPARISON: None. FINDINGS: Lumbar Spine (L1-L4): g/cm2 (0.888) / T-score (-1.4) / Z-score (0.4) Findings are suggestive of osteopenia with a low fracture risk. Left Femur Total: g/cm2 (0.942) / T-score (0.0) / Z-score (1.3) Left Femoral Neck: g/cm2 (0.736) / T-score (-1.0) / Z-score (0.5) Right Femur Total: g/cm2 (0.945) / T-score (0.0) / Z-score (1.3) Right Femoral Neck: g/cm2 (0.719) / T-score (-1.2) / Z-score (0.4) BD/Dexa Bone Density Study IMPRESSION: The patient is considered osteopenic as outlined below according to World Td Organization (WHO) criteria with a low fracture risk. Reference Information: The T-score is the number of standard deviations above or below the standard which is normal for young adults at their peak bone mineral density. The World Health Organization (WHO) interprets the T-scores as follows: Above -1 Normal bone density Between -1 and -2.5 Osteopenia Equal to / or below -2.5 Osteoporosis As a practical clinical guideline, osteopenia may be graded as follows: Mild -1 through -1.5 Moderate -1.6 through -2.0 Severe -2.1 through -2.4 The Z-score is the number of standard deviations above or below age-matched controls. A Z-score of less than -1.5 would be considered abnormal. References: 1. NIH Osteoporosis and Related Bone Diseases www osteo.org 2. International Society for Clinical Densitometry www iscd.org 3. National Osteoporosis Foundation www nof.org Electronically Signed: Qamar Day MD at 7:52 EDT ,
== END 2023-10-17 23:59 | disposition home or self-care (01) ==
LOC: OPBD 08:46
PROVIDERS: PCP Family Medicine; Referring Provider Family Medicine; Visit Provider Family Medicine
DX: N95.1 Menopausal and female climacteric states (principal); M85.89 Other specified disorders of bone density and structure, multiple sites
CPT/HCPCS: 77080

== ENCOUNTER → 2023-11-03 | Outpatient (CLI) | payer MEDICARE, OTHER, SELFPAY ==
[2023-11-03 18:22] LABS: ALB/GLOB Ratio 1.2 RATIO (0.9-2.4); AST(SGOT) 23 U/L (15-37); Alanine Aminotransfer ALT/SGPT 21 U/L (13-56); Albumin, Serum 4.3 g/dL (3.2-5.0); Alkaline Phosphatase 87 U/L (45-117); Anion Gap 8 (5-15); BUN 35 mg/dL (7-18); BUN/Creat Ratio 37.6 RATIO (10-20); Calcium,Total 10.4 mg/dL (8.5-10.1); Chloride 97 mmol/L (98-107); Creatinine, Serum 0.93 mg/dL (0.55-1.02); EST Glomerular Filtration Rate 64 mL/min (>60); Est Glom Filt Rate - Afr Amer 78 mL/min (>60); Free T3 2.9 pg/mL (2.18-3.98); Globulin 3.6 g/dL (2.2-4.2); Glucose 94 mg/dL (74-106); Potassium 3.6 mmol/L (3.5-5.1); Protein, Total 7.9 g/dL (6.4-8.2); Sodium Level 136 mmol/L (136-145); T4 Free Direct 1.24 ng/dL (0.76-1.46); Thyroid Stim Hormone (TSH) 0.085 uIU/mL (0.358-3.740)
[2023-11-06 09:32] LABS: Magnesium 2.2 mg/dL (1.6-2.6)
== END | disposition home or self-care (01) ==
LOC: MTLAB 15:17
PROVIDERS: PCP Family Medicine; Referring Provider Family Medicine; Visit Provider Family Medicine
DX: E03.9 Hypothyroidism, unspecified (principal); E78.5 Hyperlipidemia, unspecified
CPT/HCPCS: 36415; 80053; 83735; 84439; 84443; 84481

== ENCOUNTER → 2023-11-14 | Outpatient (CLI) | payer MEDICARE, OTHER, SELFPAY ==
[2023-11-14 12:22] LABS: Anion Gap 4 (5-15); BUN 21 mg/dL (7-18); BUN/Creat Ratio 22.3 RATIO (10-20); Calcium,Total 10.3 mg/dL (8.5-10.1); Chloride 101 mmol/L (98-107); Creatinine, Serum 0.94 mg/dL (0.55-1.02); EST Glomerular Filtration Rate 63 mL/min (>60); Est Glom Filt Rate - Afr Amer 76 mL/min (>60); Glucose 105 mg/dL (74-106); Magnesium 2.1 mg/dL (1.6-2.6); Potassium 4.1 mmol/L (3.5-5.1); Sodium Level 138 mmol/L (136-145)
[2023-11-14 12:30] LABS: PTHIN 68.9 pg/mL (18.4-80.1)
[2023-11-14 12:39] LABS: Vitamin D,25 Hydroxy 44.2 ng/mL
[2023-11-17 14:10] LABS: Vitamin D 1,25-Dihydroxy 29.2 pg/mL (24.8-81.5)
== END | disposition home or self-care (01) ==
LOC: MTLAB 10:21
PROVIDERS: PCP Family Medicine; Referring Provider Family Medicine; Visit Provider Family Medicine
DX: Z00.00 Encounter for general adult medical examination without abnormal findings (principal); E83.52 Hypercalcemia
CPT/HCPCS: 36415; 80048; 82306; 82652; 83735; 83970

== ENCOUNTER 2023-12-28 11:15 | Outpatient (RCR) | payer MEDICARE, OTHER, SELFPAY ==
[2023-12-28 15:46] LABS: Free T3 2.6 pg/mL (2.18-3.98); T4 Free Direct 1.12 ng/dL (0.76-1.46); Thyroid Stim Hormone (TSH) 0.745 uIU/mL (0.358-3.740)
[2023-12-28 15:58] LABS: Amphetamine Urine VISTA NEGATIVE (<1000 ng/mL); Barbiturate Urine VISTA NEGATIVE (< 200 ng/mL); Benzodiazepine Urine VISTA NEGATIVE (< 200 ng/mL); Cocaine Urine VISTA NEGATIVE (< 300 ng/mL); Ecstacy Urine VISTA NEGATIVE (< 500 ng/mL); Methadone Urine VISTA NEGATIVE (< 300 ng/mL); PCP Urine VISTA NEGATIVE (< 25 ng/mL); THC Urine VISTA NEGATIVE (< 50 ng/mL); Vista UDS pH Range 6
[2023-12-29 14:19] LABS: ALB/GLOB Ratio 1.2 RATIO (0.9-2.4); AST(SGOT) 19 U/L (15-37); Alanine Aminotransfer ALT/SGPT 21 U/L (13-56); Albumin, Serum 4.3 g/dL (3.2-5.0); Alkaline Phosphatase 97 U/L (45-117); Anion Gap 7 (5-15); BUN 19 mg/dL (7-18); BUN/Creat Ratio 21.5 RATIO (10-20); Calcium,Total 10.1 mg/dL (8.5-10.1); Chloride 98 mmol/L (98-107); Creatinine, Serum 0.88 mg/dL (0.55-1.02); EST Glomerular Filtration Rate 68 mL/min (>60); Est Glom Filt Rate - Afr Amer 82 mL/min (>60); Globulin 3.5 g/dL (2.2-4.2); Glucose 87 mg/dL (74-106); Potassium 4.3 mmol/L (3.5-5.1); Protein, Total 7.8 g/dL (6.4-8.2); Sodium Level 134 mmol/L (136-145)
== END 2023-12-28 18:00 | disposition home or self-care (01) ==
LOC: MTLAB 11:15
PROVIDERS: PCP Family Medicine
DX: E03.9 Hypothyroidism, unspecified (principal); F98.8 Other specified behavioral and emotional disorders with onset usually occurring in childhood and adolescence; Z78.9 Other specified health status
CPT/HCPCS: 36415; 80053; 80307; 84439; 84443; 84481

== ENCOUNTER 2023-12-29 15:03 | Outpatient (RCR) | payer MEDICARE, OTHER, SELFPAY ==
[2023-12-29 17:31] LABS: Absolute Lymphocyte Count 1.94 X10^3/uL (0.83-4.51); Absolute Neutrophil Count 5.9 X10^3/uL (2.0-7.7); Basophil# 0.05 X10^3/uL; Basophil% 0.6 % (0-1); Eosinophil# 0.19 X10^3/uL; Eosinophils% 2.1 % (0-5); Hematocrit 40.5 % (37-47); Hemoglobin 13.4 g/dL (12.0-15.0); Lymphocyte # 1.94 X10^3/ul (0.83-4.51); Lymphocyte % 21.9 % (19-41); Mean Corp Hgb Conc 33.1 g/dL (32-36); Mean Corpuscular Hgb 28.5 pg (27.0-32.0); Mean Corpuscular Volume 86.2 fL (81-99); Mean Platelet Vol. 11.2 fl (6.2-12.0); Monocyte# 0.76 X10^3/uL; Monocyte% 8.6 % (0-10); NRBC Flagged by Analyzer 0 % (0-5); Neutrophil # 5.88 X10^3/uL (2.7-7.7); Neutrophil % 66.6 % (47-70); Platelet Count 304 K/mm3 (150-450); RBC Distribution Width SD 40.9 fl (35.1-43.9); White Blood Count 8.8 K/mm3 (4.4-11.0)
== END 2024-01-27 18:00 | disposition home or self-care (01) ==
LOC: MTLAB 15:03
PROVIDERS: PCP Family Medicine
DX: C92.10 Chronic myeloid leukemia, BCR/ABL-positive, not having achieved remission (principal)
CPT/HCPCS: 85025

== ENCOUNTER → 2024-07-24 10:39 | Outpatient (RCR) | payer MEDICARE, OTHER, SELFPAY ==
[2024-07-24 12:31] LABS: Absolute Lymphocyte Count 1.46 X10^3/uL (0.83-4.51); Absolute Neutrophil Count 2.8 X10^3/uL (2.0-7.7); Basophil# 0.04 X10^3/uL; Basophil% 0.8 % (0-1); Eosinophil# 0.19 X10^3/uL; Eosinophils% 3.7 % (0-5); Hematocrit 37.6 % (37-47); Hemoglobin 12.3 g/dL (12.0-15.0); Lymphocyte # 1.46 X10^3/ul (0.83-4.51); Lymphocyte % 28.7 % (19-41); Mean Corp Hgb Conc 32.7 g/dL (32-36); Mean Corpuscular Hgb 28.1 pg (27.0-32.0); Mean Corpuscular Volume 85.8 fL (81-99); Mean Platelet Vol. 10.6 fl (6.2-12.0); Monocyte# 0.62 X10^3/uL; Monocyte% 12.2 % (0-10); NRBC Flagged by Analyzer 0 % (0-5); Neutrophil # 2.75 X10^3/uL (2.7-7.7); Neutrophil % 54.2 % (47-70); Platelet Count 268 K/mm3 (150-450); RBC Distribution Width CV 13.2 % (11.6-14.6); RBC Distribution Width SD 41.9 fl (35.1-43.9); Red Blood Count 4.38 M/mm3 (4.2-5.4); White Blood Count 5.1 K/mm3 (4.4-11.0)
[2024-07-24 13:44] LABS: ALB/GLOB Ratio 1.6 RATIO (0.9-2.4); AST(SGOT) 19 U/L (<=31); Alanine Aminotransfer ALT/SGPT 14 U/L (<=34); Albumin, Serum 4.5 g/dL (3.4-4.8); Alkaline Phosphatase 97 U/L (35-104); Anion Gap 12 (5-15); BUN 17 mg/dL (4-19); BUN/Creat Ratio 20.5 RATIO (10-20); Calcium,Total 10.3 mg/dL (7.6-11.0); Carbon Dioxide 26.3 mmol/L (21.0-32.0); Chloride 96 mmol/L (98-108); Cholesterol 296 mg/dL (<=200); Creatinine, Serum 0.85 mg/dL (0.70-1.20); EST Glomerular Filtration Rate 76 (>60); Free T3 2.7 pg/mL (2.18-3.98); Globulin 2.8 g/dL (2.2-4.2); Glucose 100 mg/dL (70-99); High Density Lipoprotein 40 mg/dL; Low Density Lipoprotein Calc. 181 mg/dL; Potassium 4.2 mmol/L (3.3-5.1); Protein, Total 7.3 g/dL (5.9-8.4); Sodium Level 135 mmol/L (133-145); Thyroid Stim Hormone (TSH) 0.553 uIU/mL (0.300-4.200); Total Bilirubin 0.32 mg/dL (0.00-1.30); Triglycerides 373 mg/dL; Very Low Density Lipoprotein 75 mg/dL (5-40); cholesterol:hdl ratio screen 7.36
== END ==
LOC: MTLAB 10:39
PROVIDERS: PCP Family Medicine
DX: C92.10 Chronic myeloid leukemia, BCR/ABL-positive, not having achieved remission (principal); E03.9 Hypothyroidism, unspecified; N18.2 Chronic kidney disease, stage 2 (mild); E78.5 Hyperlipidemia, unspecified
CPT/HCPCS: 36415; 80053; 80061; 84439; 84443; 84481; 85025

== ENCOUNTER → 2024-09-04 | Outpatient (CLI) | payer MEDICARE, OTHER, SELFPAY ==
--- NOTE | 2024-09-04 13:15 | CT_ITS ---
PROCEDURE: CHEST WITH CONTRAST, 09/04/2024 REASON FOR EXAM: PLEURL SWELLING TECHNIQUE: CT chest was performed with IV contrast. Multiplanar reformats were generated. IV contrast: 86 mL Isovue-300. RADIATION DOSE SUMMARY: CTDlvol: 11.3+ 8.64 mGy DLP: 324.01 mGycm One or more dose reduction techniques were used (e.g., Automated exposure control, adjustment of the mA and/or kV according to patient size, use of iterative reconstruction technique). COMPARISON: 08/07/2024 FINDINGS: Heart/pericardium: Coronary atherosclerosis better seen previously. Aorta: At most trace atherosclerosis. Pulmonary arteries: Normal in caliber. Lymph nodes: Unremarkable. Lungs/pleura: Similar trace LEFT larger than RIGHT pleural effusions. Minimal atelectasis/scarring. Subpleural opacity in the RIGHT lower lobe measures 15 x 7 mm, unchanged measured similarly (series 4 image 81). Question associated architectural distortion on coronal and sagittal reformats. Additional subpleural nodular opacity abutting the RIGHT hemidiaphragm measures 8 x 9 mm, also probably unchanged allowing for technical differences (image 85). Airways: Unremarkable. Chest wall: 1.1 x 0.7 cm nodular structure posterior to the LEFT lobe of the thyroid and adjacent to the LEFT lateral esophagus in the tracheoesophageal groove could reflect exophytic thyroid parenchyma.. Upper abdomen: Unremarkable. Musculoskeletal: Mild spondylosis.. CT/Chest WITH Contrast IMPRESSION: 1. Similar subpleural nodular opacities in the RIGHT lung base up to 11 mm aver age axial diameter. The appearance may reflect a nodular appearance of atelectasis/scarring, possibly rounded atelectasis, howev er this is not definite. Recommend continued follow-up with CT chest in 3-6 months per the Fleischner recommendations presum ing no history of known malignancy or immunosuppression, in which case closer follow-up may be warranted. 2. Similar trace LEFT larger than RIGHT pleural effusions. 3. Recommend thyroid ultrasound. 4. Additional description as above. Reading Location: [facility]
[2024-09-04 13:44] LABS: CREATININE FINGERSTICK < 1.0 mg/dL (0.55-1.02); EGFR FINGERSTICK > 60.0000 mL/min (>60)
== END | disposition home or self-care (01) ==
LOC: CT 13:13
PROVIDERS: PCP Family Medicine; Referring Provider Family Medicine; Visit Provider Family Medicine
DX: R91.8 Other nonspecific abnormal finding of lung field (principal)
CPT/HCPCS: 71260; Q9967

== ENCOUNTER → 2024-09-23 | Outpatient (CLI) | payer MEDICARE, OTHER, SELFPAY ==
--- NOTE | 2024-09-23 12:05 | US_ITS ---
PROCEDURE: THYROID 09/23/2024 REASON FOR EXAM: THYROID NODULE Thyroid nodule seen on prior CT scan of the thorax. TECHNIQUE: THYROID FINDINGS: Right thyroid lobe size: 4.2 cm x 1.5 cm x 1.5 cm Left thyroid lobe size: 4.7 cm 1.3 cm x 2 cm Isthmus: 0.11 cm Background parenchymal echotexture is heterogeneous Nodules: There is a 9 mm x 5 mm x 9 mm solid heterogeneous nodule in the midpole of the right lobe.. Thyroid category: 3 nodular density in the inferior pole measuring 7 mm x 5 mm x 5 mm is seen. Thyroid category 3. The finding on the CT scan corresponds to a 1.5 cm x 1.2 cm 1.1 cm solid heterogeneous nodule in the lower pole of the left lobe. This is a TI-RADS category 4. Biopsy recommended. Subcentimeter solid and cystic nodular also seen the largest of which measures 6 mm x 6 mm x 4 mm. US/Thyroid IMPRESSION: Dominant nodule in the lower pole of the left lobe of the thyroid as described. This measures 1.5 cm 1.2 cm x 1.1 cm. Biopsy recommended. RECOMMENDATION: Based on most suspicious nodule. Nodule size = largest diameter Only evaluate nodule if =>5 mm. Growth > 20% in 2 dimensions = worsening. Follow up to 4 nodules. Recommend biopsy for no more than 2 nodules. Reading Location: [id number]
--- OUTSIDE RECORDS SUMMARY | 2024-09-23 22:15 | XMS RPT_ITS | CCD ---
Author Organization [facility] Care Team Providers [employer] Name Role Phone MCKEON, EDGAR Unavailable Unavailable MCKEON, EDGAR Unavailable Unavailable MCKEON, EDGAR Unavailable Unavailable ERA DENNIS MD Unavailable Unavailable PROVIDER, UNKNOWN Unavailable Unavailable PROVIDER, UNKNOWN Unavailable Unavailable STEPHANIE MCCARTY Attending Unavailable SHAE COTA Primary Care Unavailable NAREN BROWN Consulting Unavailable STEPHANIE MCCARTY Attending Unavailable SHEA COTA Primary Care Unavailable Shae Cota MD Primary Care Provider Maribeth Steiner MD Unavailable Shae Cota MD Primary Care Provider Maribeth Steiner MD Unavailable [phone] SHAE COTA Referring Unavailable SHAE COTA Primary Care Unavailable MARIBETH STEINER Attending Unavailable SHAE COTA Primary Care Unavailable MARIBETH STEINER Referring Unavailable MARIBETH STEINER Attending Unavailable SHAE COTA Primary Care Unavailable MARIBETH STEINER Referring Unavailable MARIBETH STEINER Attending Unavailable Shae Cota MD Primary Care Provider [phone] Shae Cota MD Primary Care Provider Dr. Shae Cota MD Other Provider [phone] LEÓN AVILEZ Attending Provider LEÓN AVILEZ Referring Provider Dr. Shae Cota MD Attending Provider Dr. Shae Cota MD Referring Provider Dr. Roberto Moore MD Attending Provider Dr. Roberto Moore MD Referring Provider Cota, Shae Attending Unavailable Cota, Shae Referring Unavailable Cota, Shae Primary Care Unavailable Cota, Shae Consulting Unavailable HEBERT, DENISE Attending Unavailable HEBERT, DENISE Referring Unavailable Cota, Shae Primary Care Unavailable Cota, Shae Attending Unavailable Cota, Shae Referring Unavailable Cota, Shae Primary Care Unavailable Cota, Shae Primary Care Unavailable HEBERT, DENISE Referring Unavailable Cota, Shae Consulting Unavailable HEBERT, DENISE Attending Unavailable Cota, Shae Primary Care Unavailable Cota, Shae Attending Unavailable Cota, Shae Referring Unavailable Cota, Shae Consulting Unavailable HEBERT, DENISE Attending Unavailable HEBERT, DENISE Referring Unavailable Cota, Shae Primary Care Unavailable Cota, Shae Attending Unavailable Cota, Shae Primary Care Unavailable Cota, Shae Referring Unavailable Teresa, Roberto Attending Unavailable Teresa, [place] Referring Unavailable Cota, Shae Primary Care Unavailable Cota, Shae Primary Care Unavailable Cota, Shae Attending Unavailable Cota, Shae Referring Unavailable Cota, Shae Attending Unavailable Cota, Shae Referring Unavailable Cota, Shae Primary Care Unavailable HEBERT, DENISE Referring Unavailable Cota, Shae Consulting Unavailable DENISE HEBERT Attending Unavailable Cota, Shae Primary Care Unavailable Medications Current Medications Medication Drug Class(es) Dates Sig (Normalized) Sig (Original) amphetamine aspartate 1.25 mg / amphetamine sulfate 1.25 mg / dextroamphetamine saccharate 1.25 mg / dextroamphetamine sulfate 1.25 mg oral tablet (14 sources) Central Nervous System Stimulant Start: 02-05-2020 take 1 tablet by mouth once daily Dextroamphetamin e-Amphetamine 5 mg tablet Active 5 mg PO DAILY 0 February 05, 2020 1:00am atenolol 25 mg oral tablet (20 sources) beta-Adrenergic Cristian Start: 06-09-2020 take 1 tablet by mouth once daily Atenolol 25 mg tablet Active 25 mg PO DAILY June 09, 2020 12:00am Start: 02-05-2020 End: 06-09-2020 Atenolol 50 mg tablet Discon tinued 25 mg PO DAILY February 05, 2020 4:45pm June 09, 2020 2:05pm Start: 02-05-2020 End: 06-09-2020 take 25 mg by mouth once daily Atenolol Discontinued 2 5 MG PO DAILY February 05, 2020 4:45pm June 09, 2020 2:05pm Start: 10-31-2018 End: 02-05-2020 take 1 tablet by mouth once daily Atenolol 50 mg tablet Discontinued 50 mg PO DAILY October 31, 2018 12:00am February 05, 2020 4:50pm dasatinib 70 mg oral tablet (19 sources) Kinase Inhibitor Start: 02-05-2020 End: 11-17-2021 Dasatinib 70 mg tablet Active {tbl} PO February 05, 2020 1:00am Start: 06-21-2019 End: 02-05-2020 take 1 tablet by mouth once daily Dasatinib 100 mg tablet Discontinued 70 mg PO DAILY June 21, 2019 12:00am February 05, 2020 4:21pm Start: 06-21-2019 End: 02-05-2020 take 70 mg by mouth once daily Dasatinib Discontinued 70 MG PO DAILY June 21, 2019 12:00am February 05, 2020 4:21pm indapamide 1.25 mg oral tablet (20 sources) Thiazide-like Diuretic Start: 06-09-2020 take 1 tablet by mouth once daily Indapamide 1.25 mg tablet Active 1.25 mg PO DAILY June 09, 2020 12:00am Start: 2020 End: 02-05-2020 take 1 tablet by mouth once daily Indapamide 1.25 mg tablet Discontinued 1.25 mg PO DAILY February 05, 2020 4:21pm February 05, 2020 4:46pm hypertension take 2 tablets by mo uth once daily indapamide 1.25 MG tablet Take 2 tablets by mouth daily. Active irbesartan 150 mg oral tablet (5 sources) Angiotensin 2 Receptor Cristian Start: 03-29-2021 take 1 tablet by mouth once daily irbesartan 150 MG tablet TAKE 1 TABLET BY MOUTH EVERY DAY WITH SUPPER 03/29/2021 Active levothyroxine sodium 0.1 mg oral tablet (20 sources) l-Thyroxine Start: 05-19-2020 take 1 tablet by mouth once daily Levothyroxine 100 mcg tablet Active 100 ug PO DAILY June 09, 2020 12:00am Start: 05-19-2020 levothyroxine 100 MCG tablet 88 mcg. 0 05/19/2020 Active Start: 06-21-2019 End: 06-09-2020 take 1 tablet by mouth once daily Levothyroxine 112 mcg tablet Discontinued 112 ug PO DAILY June 21, 2019 12:00am June 09, 2020 2:05pm losartan potassium 50 mg oral tablet (9 sources) Angiotensin 2 Receptor Cristian Start: 06-09-2020 take 1 tablet by mouth once daily Losartan 50 mg tablet Active 50 mg PO DAILY 60 2 June 09, 2020 12:00am Completed/Discontinued Medications Medication Drug Class(es) Dates Sig (Normalized) Sig (Original) lisinopril 10 mg oral tablet (9 sources) Angiotensin Converting Enzyme Inhibitor Start: 02-05-2020 End: 06-09-2020 take 1 tablet by mouth once daily Lisinopril 10 mg tablet Discontinued 10 mg PO DAILY 60 3 February 05, 2020 1:00am June 09, 2020 2:38pm ondansetron 4 mg oral tablet (1 source) Serotonin-3 Receptor Antagonist Start: 10-03-2019 End: 11-17-2021 take 1 tablet by mouth every twelve hours as needed ondansetron 4 MG tablet Take 1 tablet by mouth every 12 hours as needed for nausea or vomiting. 30 tablet 3 10/03/2019 11/17/2021 Discontinued Problems Active Problems Problem Classification Problem Date Documented Da te Episodic/Chronic Attention-deficit, conduct, and disruptive behavior disorders (1 source) Attention deficit disorder without mention of hyperactivity; Translations: [Attention deficit disorder without mention of hyperactivity] Onset: 12-28-2023 Chronic Cardiac dysrhythmias (9 sources) Unifocal PVCs; Translations: [Ventricular premature depolarization] 06-09-2020 Chronic Chronic kidney disease (1 source) Chronic kidney disease, stage 2 (mild); Translations: [Chronic kidney disease, stage 2 (mild)] Onset: 07-28-2024 Chronic Disorders of lipid metabolism (1 source) Hyperlipidemia, unspecified; Translations: [Hyperlipidemia, unspecified] Onset: 07-28-2024 Chronic Disorders usually diagnosed in infancy, childhood, or adolescence (1 source) Other specified behavioral and emotional disorders with onset usually occurring in childhood and adolescence; Translations: [Other specified behavioral and emotional disorders with onset usually occurring in childhood and adolescence] Onset: 12-28-2023 Chronic Essential hypertension (9 sources) Essential hypertension; Translations: [Essential (primary) hypertension] 02-03-2020 Chronic Leukemias (20 sources) Chronic myeloid leukemia; Translations: [Chronic myeloid leukemia, BCR/ABL-positive, not having achieved remission] Onset: 09-14-2006 Chronic Menopausal disorders (1 source) Menopausal and female climacteric states; Translations: [Menopausal and female climacteric states] Onset: 11-23-2023 Chronic Nonspecific chest pain (20 sources) Finding of region of thorax; Translations: [Other chest pain] 02-05-2020 Episodic Other circulatory disease (1 source) Other specified symptoms and signs involving the circulatory and respiratory systems; Translations: [Other specified symptoms and signs involving the circulatory and respiratory systems] Onset: 08-07-2024 Episodic Other lower respiratory disease (18 sources) Dyspnea; Translations: [Dyspnea, unspecified] 02-05-2020 Episodic Other lower respiratory disease (1 source) Other nonspecific abnormal finding of lung field; Translations: [Other nonspecific abnormal finding of lung field] Onset: 09-12-2024 Episodic Pleurisy; pneumothorax; pulmonary collapse (20 sources) Bilateral pleural effusion; Translations: [Pleural effusion, not elsewhere classified] Onset: 2020 02-03-2020 Episodic Thyroid disorders (3 sources) Hypothyroidism, unspecified; Translations: [Unspecified acquired hypothyroidism] Onset: 12-28-2023 Chronic Past or Other Problems Problem Classification Problem Date Documented Da te Episodic/Chronic Mood disorders (5 sources) Mood disorders Onset: 07-15-2021 Resolved: 09-28-2023 07-15-2021 Results Test Name Value Interpretation Reference Range Facility CREATININE FINGERSTICKon CREATININE WB < 1.0 Normal 0.55-1.02 [facility] Comment on above: Performed By: #### L 9100.0200 ####[facility] [address] [place], [address] EGFR WB > 60.0000 Normal >60 [facility] Comment on above: Performed By: #### L 9100.0200 ####[facility] [address] [place], [address] Chest WITH Contraston 2024 Chest WITH Contrast [facility] Imaging Services [address] [place] [address] Chest WITH Contrast MR#: [id number] Acct: [id number] Name: FRANCI ALMONTE Rep #: [id number] : 1960 F 64 From: Rod Hernández MD PCP: Dr. Shae Cota MD Status: DEP CLI Study: Chest WITH Contrast Date of Exam: 09/04/24 Exam# [id number] Ordering Dr: Shae Cota MD ADDENDUM by Dr. Rod Hernández MD on 09/17/24 at 2333 A comparison exam dated 06/21/2019 not available at the time of original dictation been made available for comparison purposes and an addendum has been requested. The subpleural nodular findings in the RIGHT lung base are new. Recommendation for follow-up CT unchanged. The 11 mm nodular structure posterior to the LEFT lobe of the thyroid and adjacent to the LEFT lateral esophagus is new. Recommendation for thyroid ultrasound unchanged. The trace RIGHT pleural effusion is new. The trace LEFT pleural effusion has decreased. END OF ADDENDUM Reading Location: [id number] 09/17/24 2333 Date cc: Dr. Shae Cota MD * Signed PROCEDURE: CHEST WITH CONTRAST, 09/04/2024 REASON FOR EXAM: PLEURL SWELLING TECHNIQUE: CT chest was performed with IV contrast. Multiplanar reformats were generated. IV contrast: 86 mL Isovue-300. RADIATION DOSE SUMMARY: CTDlvol: 11.3+ 8.64 mGy DLP: 324.01 mGycm One or more dose reduction techniques were used (e.g., Automated exposure control, adjustment of the mA and/or kV according to patient size, use of iterative reconstruction technique). COMPARISON: 08/07/2024 FINDINGS: Heart/pericardium: Coronary atherosclerosis better seen previously. Aorta: At most trace atherosclerosis. Pulmonary arteries: Normal in caliber. Lymph nodes: Unremarkable. Lungs/pleura: Similar trace LEFT larger than RIGHT pleural effusions. Minimal atelectasis/scarring. Subpleural opacity in the RIGHT lower lobe measures 15 x 7 mm, unchanged measured similarly (series 4 image 81). Question associated architectural distortion on coronal and sagittal reformats. Additional subpleural nodular opacity abutting the RIGHT hemidiaphragm measures 8 x 9 mm, also probably unchanged allowing for technical differences (image 85). Airways: Unremarkable. Chest wall: 1.1 x 0.7 cm nodular structure posterior to the LEFT lobe of the thyroid and adjacent to the LEFT lateral esophagus in the tracheoesophageal groove could reflect exophytic thyroid parenchyma.. Upper abdomen: Unremarkable. Musculoskeletal: Mild spondylosis.. CT/Chest WITH Contrast IMPRESSION: 1. Similar subpleural nodular opacities in the RIGHT lung base up to 11 mm average axial diameter. The appearance may reflect a nodular appearance of atelectasis/scarring, possibly rounded atelectasis, however this is not definite. Recommend continued follow-up with CT chest in 3-6 months per the Fleischner recommendations presuming no history of known malignancy or immunosuppression, in which case closer follow-up may be warranted. 2. Similar trace LEFT larger than RIGHT pleural effusions. 3. Recommend thyroid ultrasound. 4. Additional description as above. Reading Location: [id number] CC: Dr. Shae Cota MD Pit Supervisor: Signed Normal [facility] EGFROrdered By: Shae redmond 09-04-2024 GFR/1.73 sq M.predicted among non-blacks MDRD (S/P/Bld) [Vol rate/Area] mL/min/{1.73_m2} >60 [facility] Coronary Angiography CTon Coronary Angiography CT [facility] Imaging Services [address] [place] [address] 08/12/24 1721 MR#: [id number] Acct: [id number] Name: FRANCI ALMONTE KRISTIN Rep #: [id number] : 1960 64 From: Roberto Moore MD PCP: Dr. Shae Cota MD Status:REG REF Y Location: CT Calcium Scoring Date of Study:: 08/07/24 Indications Indications: Hypertension hyperlipidemia Coronary Calcium Scoring: High-resolution Computed Tomographic imaging of the chest was performed on [08/07/24 ], with particular attention paid to the coronary arteries. Images from the examination were analyzed for the presence and extent of coronary artery calcification , using coronary calcium quantification software. The patient tolerated the procedure well and there were no complications. The results of the coronary calcification analysis are provided below. Findings Coronary Artery Left Main (LM): 28 Left Anterior Descending (LAD): 47 Left Circumflex (LCX): 0 Right Coronary Artery (RCA): 30 Total Agatston Score: 105 Percentile Ranking: Percentile ranking 50th to 75th percentile Calcium Scoring Interpretation: Different methods to categorize the overall amount of coronary plaque. Overall amount CAC SIS Visual of coronary plaque P1 Mild -100 <2 1-2 vessels with mild amount of plaque P2 Moderate 101-300 3-4 1-2 vessels with moderate amount, 3 vessels with mild amount of plaque P3 Severe 301-999 5-7 3 vessels with moderate amount, 1 vessel with severe amount of plaque P4 Extensive >1000 >8 2-3 vessels with severe amount of plaque Conclusion: Mild 1-2 vessel atherosclerotic plaquing 08/12/24 1722 Date Roberto Moore MD Cosigner Signature (if applicable): Date CC: Dr. Roberto Moore MD; Dr. Shae Cota MD Signed Normal [facility] Limited Chest CT Cardiac Onl yo 08-07-[address] Cardiac Only [facility] Imaging Services [address] [place] [id number] Cardiac Only MR#: [id number] Acct: [id number] Name: FRANCI ALMONTE KRISTIN Rep #: [id number] : 1960 F 64 From: Qamar garcia MD PCP: Dr. Shae Cota MD Status: REG REF Study: Limited Chest CT Cardiac Only Date of Exam: Exam# [id number] Ordering Dr: Shae Cota MD PROCEDURE: LIMITED CHEST CT CARDIAC ONLY REASON FOR EXAM: SCREEN TECHNIQUE: Supine chest CT without contrast. One or more dose reduction techniques were used (e.g., Automated exposure control, adjustment of the mA and/or kV according to patient size, use of iterative reconstruction technique). Dose report: CTDI L volume: 12.19 mGy. DLP: 219.42 mGy. COMPARISON: None FINDINGS: Hardware: None Lymph nodes: No suspicious mediastinal or hilar lymph node seen. Heart and Vasculature: Normal heart size. No pericardial effusion. Atherosclerotic calcifications of the thoracic aorta. Thoracic aorta and pulmonary arteries have normal contours; noncontrast technique limits evaluation. Coronary Artery Calcifications: Present Lungs and Airways: There is a 1.4 cm pleural-based nodular density in the peripheral lateral aspect of the right lower lobe as seen on axial image number 47. A dedicated CT scan of the thorax recommended for further evaluation. Pleura: No pleural effusion Upper Abdomen: Unremarkable Bones: Degenerative changes of the thoracic spine. CT/Limited Chest CT Cardiac Only IMPRESSION: Coronary artery calcification (CAC) is is present 1.4 cm pleural-based nodular density in the peripheral lateral aspect of the right lower lobe as described. A dedicated CT scan of the chest following IV contrast recommended. Reading Location: [place] [address] CC: Dr. Shae Cota MD Pit Supervisor: Signed Normal [facility] [id number] 07-28-2024 [facility] Misc. COMMENT Normal . [facility] Comment on above: Order Comment: CRITI NARESH RESULTS CALLED TO [phone]. SMITH ORDERED CBCD,CMP,F3F,F4F,TSH,LIPIDOSU WEXOFELIA ORDERED CBCD,CMP,BCR ABL [id number] Result Comment: Test Ordered: [id number] BCR-ABL1, CML/ALL, PCR, Quant e13a2 (b2a2) transcript <0.0032 % % CHAVIRA Reference Range: . e14a2 (b3a2) transcript <0.0032 % % CHAVIRA Reference Range: . e1a2 transcript <0.0032 % % CHAVIRA Reference Range: . Interpretation: Negative CHAVIRA Reference Range: . NEGATIVE for the BCR-ABL1 e1a2 (p190), e13a2 (b2a2, p210) and e14a2 (b3a2, p210) fusion transcripts. These results do not rule out the presence of rare BCR-ABL1 transcripts not detected by this assay. Director Review Comment Reference Range: . Technical Component performed at [facility] Professional Component performed by: Duane Hebert, PhD, [facility] Director, Molecular Oncology [facility] [place] [id number], [address] [facility] [address] Background Comment CHAVIRA Reference Range: . This assay can detect three different types of BCR-ABL1 fusion transcripts associated with CML, ALL, and AML: e13a2 (previously b2a2) and e14a2 (previously b3a2) (major breakpoint, p210), as well as e1a2 (minor breakpoint, p190). The e13a2 and e14a2 transcript values are titrated to the current International Scale (IS). The standardized baseline is 100% BCR-ABL1 (IS) and major molecular response (MMR) is equivalent to 0.1% BCR-ABL1 (IS) corresponding to a 3-log reduction. Results should be correlated with appropriate clinical and laboratory information as indicated. Methodology Comment TG Reference Range: . Total RNA is isolated from the sample and subject to a real- time, reverse transcriptase polymerase chain reaction (RT- PCR). The PCR primers and probes are specific for BCR-ABL1 e13a2, e14a2 and e1a2 fusion transcripts. The ABL1 transcript is amplified as the control for cDNA quantity and quality. Serial dilutions of a validated positive control RNA with known t(9;22) BCR-ABL1 are used as reference for quantification of BCR-ABL1 relative to ABL1. The numeric BCR-ABL1 level is reported as % BCR- ABL1/ABL1 and the detection sensitivity is 4.5 log below the standard baseline (<0.0032%). This test was developed and its performance characteristics determined by [facility]. It has not been cleared or approved by the Food and Drug Administration. References Comment TG Reference Range: . 1) Wilfrido Nath S. Molecular monitoring of chronic myeloid leukemia. Semin Hematol. 2003 Apr; 40(2 Suppl 2):62-68. 2) NCCN Clinical Practice Guidelines in Oncology Chronic Myeloid Leukemia Version 1.2024 - October 05, 2023 3) Lacey Najera, Royer P, et al. Establishment of the of the first World Health Organization International Genetic Reference Panel for quantitation of BCR-ABL mRNA. Blood. 2010 25; 116(22):r219-226. Performed at: [facility] [address] [facility], [place], [place] [id number] Cleaner And Preparer: Svetlana Rico [facility], Phone: [phone] Performed at: - [facility] [address] [facility], [place], [place] [id number] Cleaner And Preparer: Svetlana Rico [facility], Phone: [phone] Performed at: - [facility] [address] [id number] Cleaner And Preparer: Arun Ponce PhD, Phone: [phone] Performed By: #### L 3410.9992 ####[facility] [address] [place], [address] Absolute lymphocyte countOrd ered By: Shae Cota on 07-24-2024 Lymphocytes Auto (Unsp spec) [#/Vol] 1.46 10*3/uL 0.83-4.51 [facility] Absolute neutrophil countOrd ered By: Shae Cota on 07-24-2024 Neutrophils (Bld) [#/Vol] 2.8 10*3/uL 2.0-7.7 [facility] Anion gap in Serum or Plasma Ordered By: Shae Cota on 07-24-2024 Anion gap [Moles/Vol] 12 mmol/L 5-15 [facility] Automated lymphocyte count a s percentage of total leukocytesOrdered By: Shae Cota on 07-24-2024 Lymphocytes/100 WBC Auto (Unsp spec) 28.7 % 19-41 [facility] BUN/creatinine ratioOrdered By: Shae Cota on 07-24-2024 Urea nitrogen/Creatinine [Mass ratio] 20.5 mg/mg High 10-20 [facility] Basophil percentageOrdered B y: Shae Cota on 07-24-2024 Basophils/100 WBC (Bld) 0.8 % 0-1 [facility] Bilirubin, totalOrdered By: Shae Cota on 07-24-2024 Bilirubin [Mass/Vol] 0.32 mg/dL 0.00-1.30 [facility] CBC W/Diff, Automatedon 06-28 Absolute Lymph 1.46 X10 3/uL Normal 0.83-4.51 [facility] Comment on above: Order Comment: Order Date: 06/07/24Order Info: [id number] - CBCDCRITICAL RESULTS CALL [phone]. SMITH ORDERED CMP,CBCD,T3F,T4F,TSH LIPIDOSU WEXNER ORDERED CBCD,CMP,BCR/ABL Performed By: #### L 100.0100, L501.40718, L500.4100, L506.0400, L501.9520, L500.4050 ####[facility] [address] [place], [address] Absolute Neut 2.8 X10 3/uL Normal 2.0-7.7 [facility] Comment on above: Order Comment: Order Date: 06/07/24Order Info: [id number] - CBCDCRITICAL RESULTS CALL [phone]. SMITH ORDERED CMP,CBCD,T3F,T4F,TSH LIPIDOSU WEXNER ORDERED CBCD,CMP,BCR/ABL Performed By: #### L 100.0100, L501.52365, L500.4100, L506.0400, L501.9520, L500.4050 ####[facility] [address] [place], [address] Basophils/100 WBC (Bld) 0.8 % Normal 0-1 [facility] Comment on above: Order Comment: Order Date: 06/07/24Order Info: [id number] - CBCDCRITICAL RESULTS CALL [phone]. SMITH ORDERED CMP,CBCD,T3F,T4F,TSH LIPIDOSU WEXNER ORDERED CBCD,CMP,BCR/ABL Performed By: #### L 100.0100, L501.54765, L500.4100, L506.0400, L501.9520, L500.4050 ####[facility] [address] [place], [address] Eosinophils/100 WBC (Bld) 3.7 % Normal 0-5 [facility] Comment on above: Order Comment: Order Date: 06/07/24Order Info: [id number] - CBCDCRITICAL RESULTS CALL [phone]. SMITH ORDERED CMP,CBCD,T3F,T4F,TSH LIPIDOSU WEXNER ORDERED CBCD,CMP,BCR/ABL Performed By: #### L 100.0100, L501.14541, L500.4100, L506.0400, L501.9520, L500.4050 ####[facility] [address] [place], [address] Erythrocyte distribution width (RBC) [Ratio] 13.2 % Normal 11.6-14.6 [facility] Comment on above: Order Comment: Order Date: 06/07/24Order Info: [id number] - CBCDCRITICAL RESULTS CALL [phone]. SMITH ORDERED CMP,CBCD,T3F,T4F,TSH LIPIDOSU WEXNER ORDERED CBCD,CMP,BCR/ABL Performed By: #### L 100.0100, L501.45811, L500.4100, L506.0400, L501.9520, L500.4050 ####[facility] [address] [place], [address] Hematocrit (Bld) [Volume fraction] 37.6 % Normal 37-47 [facility] Comment on above: Order Comment: Order Date: 06/07/24Order Info: [id number] - CBCDCRITICAL RESULTS CALL [phone]. SMITH ORDERED CMP,CBCD,T3F,T4F,TSH LIPIDOSU WEXNER ORDERED CBCD,CMP,BCR/ABL Performed By: #### L 100.0100, L501.01048, L500.4100, L506.0400, L501.9520, L500.4050 ####[facility] [address] [place], [address] Hemoglobin (Bld) [Mass/Vol] 12.3 g/dL Normal 12.0-15.0 [facility] Comment on above: Order Comment: Order Date: 06/07/24Order Info: [id number] - CBCDCRITICAL RESULTS CALL [phone]. SMITH ORDERED CMP,CBCD,T3F,T4F,TSH LIPIDOSU [place] ORDERED CBCD,CMP,BCR/ABL Performed By: #### L 100.0100, L501.13071, L500.4100, L506.0400, L501.9520, L500.4050 ####[facility] [address] [place], [address] IG% 0.400 Normal 0.0-0.9 [facility] Comment on above: Order Comment: Order Date: 06/07/24Order Info: 0184-1 - CBCDCRITICAL RESULTS CALL [phone]. SMITH ORDERED CMP,CBCD,T3F,T4F,TSH LIPIDOSU [place] ORDERED CBCD,CMP,BCR/ABL Result Comment: IG% - Immature Granulocytes (promyelocytes, myelocytes and metamyelocytes) > 1% indicates that a LEFT SHIFT is Present. Performed By: #### L 100.0100, L501.14829, L500.4100, L506.0400, L501.9520, L500.4050 ####[facility] [address] [place], [address] Lymphocytes/100 WBC (Bld) 28.7 % Normal 19-41 [facility] Comment on above: Order Comment: Order Date: 06/07/24Order Info: 0184-1 - CBCDCRITICAL RESULTS CALL [phone]. SMITH ORDERED CMP,CBCD,T3F,T4F,TSH LIPIDOSU [place] ORDERED CBCD,CMP,BCR/ABL Performed By: #### L 100.0100, L501.61585, L500.4100, L506.0400, L501.9520, L500.4050 ####[facility] [address] [place], [address] MCH (RBC) [Entitic mass] 28.1 pg Normal 27.0-32.0 [facility] Comment on above: Order Comment: Order Date: 06/07/24Order Info: 0184-1 - CBCDCRITICAL RESULTS CALL [phone]. SMITH ORDERED CMP,CBCD,T3F,T4F,TSH LIPIDOSU [place] ORDERED CBCD,CMP,BCR/ABL Performed By: #### L 100.0100, L501.20824, L500.4100, L506.0400, L501.9520, L500.4050 ####[facility] [address] [place], [address] MCHC (RBC) [Mass/Vol] 32.7 g/dL Normal 32-36 [facility] Comment on above: Order Comment: Order Date: 06/07/24Order Info: 018-1 - CBCDCRITICAL RESULTS CALL [phone]. SMITH ORDERED CMP,CBCD,T3F,T4F,TSH LIPIDOSU [place] ORDERED CBCD,CMP,BCR/ABL Performed By: #### L 100.0100, L501.76476, L500.4100, L506.0400, L501.9520, L500.4050 ####[facility] [address] [place], [address] MCV (RBC) [Entitic vol] 85.8 fL Normal 81-99 [facility] Comment on above: Order Comment: Order Date: 06/07/24Order Info: 0184-1 - CBCDCRITICAL RESULTS CALL [phone]. SMITH ORDERED CMP,CBCD,T3F,T4F,TSH LIPIDOSU [place] ORDERED CBCD,CMP,BCR/ABL Performed By: #### L 100.0100, L501.08825, L500.4100, L506.0400, L501.9520, L500.4050 ####[facility] [address] [place], [address] Monocytes/100 WBC (Bld) 12.2 % High 0-10 [facility] Comment on above: Order Comment: Order Date: 06/07/24Order Info: 0184-1 - CBCDCRITICAL RESULTS CALL [phone]. SMITH ORDERED CMP,CBCD,T3F,T4F,TSH LIPIDOSU [place] ORDERED CBCD,CMP,BCR/ABL Performed By: #### L 100.0100, L501.69667, L500.4100, L506.0400, L501.9520, L500.4050 ####[facility] [address] [place], [address] Neutrophils/100 WBC (Bld) 54.2 % Normal 47-70 [facility] Comment on above: Order Comment: Order Date: 06/07/24Order Info: 018- - CBCDCRITICAL RESULTS CALL [phone]. SMITH ORDERED CMP,CBCD,T3F,T4F,TSH LIPIDOSU [place] ORDERED CBCD,CMP,BCR/ABL Performed By: #### L 100.0100, L501.95375, L500.4100, L506.0400, L501.9520, L500.4050 ####[facility] [address] [place], [address] Nucleated RBC (Bld) [#/Vol] 0 10*3/uL Normal 0-5 [facility] Comment on above: Order Comment: Order Date: 06/07/24Order Info: 0184-1 - CBCDCRITICAL RESULTS CALL [phone]. SMITH ORDERED CMP,CBCD,T3F,T4F,TSH LIPIDOSU [place] ORDERED CBCD,CMP,BCR/ABL Performed By: #### L 100.0100, L501.98143, L500.4100, L506.0400, L501.9520, L500.4050 ####[facility] [address] [place], [address] Platelet mean volume (Bld) [Entitic vol] 10.6 fL Normal 6.2-12.0 [facility] Comment on above: Order Comment: Order Date: 06/07/24Order Info: 018- - CBCDCRITICAL RESULTS CALL [phone]. SMITH ORDERED CMP,CBCD,T3F,T4F,TSH LIPIDOSU [place] ORDERED CBCD,CMP,BCR/ABL Performed By: #### L 100.0100, L501.70544, L500.4100, L506.0400, L501.9520, L500.4050 ####[facility] [address] [place], [address] Platelets (Bld) [#/Vol] 268 10*3/uL Normal 150-450 [facility] Comment on above: Order Comment: Order Date: 06/07/24Order Info: 183- - CBCDCRITICAL RESULTS CALL [phone]. SMITH ORDERED CMP,CBCD,T3F,T4F,TSH LIPIDOSU [place] ORDERED CBCD,CMP,BCR/ABL Performed By: #### L 100.0100, L501.49664, L500.4100, L506.0400, L501.9520, L500.4050 ####[facility] [address] [place], [address] RBC (Bld) [#/Vol] 4.38 10*6/uL Normal 4.2-5.4 [facility] Comment on above: Order Comment: Order Date: 06/07/24Order Info: 018- - CBCDCRITICAL RESULTS CALL [phone]. SMITH ORDERED CMP,CBCD,T3F,T4F,TSH LIPIDOSU [place] ORDERED CBCD,CMP,BCR/ABL Performed By: #### L 100.0100, L501.99113, L500.4100, L506.0400, L501.9520, L500.4050 ####[facility] [address] [place], [place], [id number] RDW SD 41.9 fl Normal 35.1-43.9 [facility] Comment on above: Order Comment: Order Date: 06/07/24Order Info: 0184-1 - CBCDCRITICAL RESULTS CALL [phone]. SMITH ORDERED CMP,CBCD,T3F,T4F,TSH [facility] ORDERED CBCD,CMP,BCR/ABL Performed By: #### L 100.0100, L501.39126, L500.4100, L506.0400, L501.9520, L500.4050 ####[facility] [address] [place], [place], [phone] WBC (Bld) [#/Vol] 5.1 10*3/uL Normal 4.4-11.0 [facility] Comment on above: Order Comment: Order Date: 06/07/24Order Info: 0184-1 - CBCDCRITICAL RESULTS CALL [phone]. SMITH ORDERED CMP,CBCD,T3F,T4F,TSH [facility]U [facility] ORDERED CBCD,CMP,BCR/ABL Performed By: #### L 100.0100, L501.53651, L500.4100, L506.0400, L501.9520, L500.4050 ####[facility] [address] [place], [address] Calculated very low density lipoprotein (VLDL) cholesterol measurementOrdered By: Shae Cota on 07-24-2024 Calculated very low density lipoprotein (VLDL) cholesterol measurement 75 mg/dL High 5-40 [facility] Carbon dioxide, total [Moles /volume] in Central venous bloodOrdered By: Shae Cota on 07-24-2024 CO2 [Moles/Vol] 26.3 mmol/L 21.0-32.0 [facility] Chloride assayOrdered By: Felix Cota on 07-24-2024 Chloride [Moles/Vol] 96 mmol/L Low 98-108 [facility] Comprehensive Metabolic Prof ilon 07-24-2024 Albumin [Mass/Vol] 4.5 g/dL Normal 3.4-4.8 [facility] Comment on above: Order Comment: Order Date: 06/07/24Order Info: 0786-1 - CMPCRITICAL RESULTS CALL [phone].SMITH ORDERED CBCD,CMP,T4F,T3F,TSH,LIPIDOSU [facility] STANDING ORDER ORDERED CBCD,CMP,BCR-ABLOrder Info: [id number] - LIPIDOrder Info: 3051-0 - Y7KNdwlo Info: 3016-3 - TSHOrder Info: 3024-7 - T4F Performed By: #### L 100.0100, L501.02938, L500.4100, L506.0400, L501.9520, L500.4050 ####[facility] [address] [place], [place], [phone] Albumin/Globulin [Mass ratio] 1.6 {ratio} Normal 0.9-2.4 [facility] Comment on above: Order Comment: Order Date: 06/07/24Order Info: 0786- - CMPCRITICAL RESULTS CALL [phone].SMITH ORDERED CBCD,CMP,T4F,T3F,TSH,LIPIDOSU [place] STANDING ORDER ORDERED CBCD,CMP,BCR-ABLOrder Info: - LIPIDOrder Info: 3051-0 - P2NRvdly Info: 3016-3 - TSHOrder Info: 3024-7 - T4F Performed By: #### L 100.0100, L501.29001, L500.4100, L506.0400, L501.9520, L500.4050 ####[facility] [address] [place], [address] ALK PHOS 97 U/L Normal 35-104 [facility] Comment on above: Order Comment: Order Date: 06/07/24Order Info: 0786-1 - CMPCRITICAL RESULTS CALL [phone].SMITH ORDERED CBCD,CMP,T4F,T3F,TSH,LIPIDOSU [place] STANDING ORDER ORDERED CBCD,CMP,BCR-ABLOrder Info: [id number] - LIPIDOrder Info: 3051-0 - A0VColtx Info: 3016-3 - TSHOrder Info: 3024-7 - T4F Performed By: #### L 100.0100, L501.69349, L500.4100, L506.0400, L501.9520, L500.4050 ####[facility] [address] [place], [address] ALT [Catalytic activity/Vol] 14 U/L Normal <=34 [facility] Comment on above: Order Comment: Order Date: 06/07/24Order Info: 0786-1 - CMPCRITICAL RESULTS CALL [phone].SMITH ORDERED CBCD,CMP,T4F,T3F,TSH,LIPIDOSU [place] STANDING ORDER ORDERED CBCD,CMP,BCR-ABLOrder Info: [id number] - LIPIDOrder Info: 3051-0 - T5BDxvrg Info: 3015-3 - TSHOrder Info: 3024-7 - T4F Performed By: #### L 100.0100, L501.03549, L500.4100, L506.0400, L501.9520, L500.4050 ####[facility] [address] [place], [address] AST [Catalytic activity/Vol] 19 U/L Normal <=31 [facility] Comment on above: Order Comment: Order Date: 06/07/24Order Info: 0786-1 - CMPCRITICAL RESULTS CALL [phone].SMITH ORDERED CBCD,CMP,T4F,T3F,TSH,LIPIDOSU [place] STANDING ORDER ORDERED CBCD,CMP,BCR-ABLOrder Info: [id number] - LIPIDOrder Info: 3051-0 - G5SKguee Info: 3016-3 - TSHOrder Info: 3024-7 - T4F Performed By: #### L 100.0100, L501.72309, L500.4100, L506.0400, L501.9520, L500.4050 ####[facility] [address] [place], [address] Bilirubin [Mass/Vol] 0.32 mg/dL Normal 0.00-1.30 [facility] Comment on above: Order Comment: Order Date: 06/07/24Order Info: 0786-1 - CMPCRITICAL RESULTS CALL [phone].SMITH ORDERED CBCD,CMP,T4F,T3F,TSH,LIPIDOSU [place] STANDING ORDER ORDERED CBCD,CMP,BCR-ABLOrder Info: [id number] - LIPIDOrder Info: 3051-0 - Z9OZmjyf Info: 3016-3 - TSHOrder Info: 3024-7 - T4F Performed By: #### L 100.0100, L501.44933, L500.4100, L506.0400, L501.9520, L500.4050 ####[facility] [address] [place], [address] BUN/CRE 20.5 RATIO High 10-20 [facility] Comment on above: Order Comment: Order Date: 06/07/24Order Info: 0786-1 - CMPCRITICAL RESULTS CALL [phone].SMITH ORDERED CBCD,CMP,T4F,T3F,TSH,LIPIDOSU [place] STANDING ORDER ORDERED CBCD,CMP,BCR-ABLOrder Info: [id number] - LIPIDOrder Info: 3051-0 - U2DWrcce Info: 3016-3 - TSHOrder Info: 3024-7 - T4F Performed By: #### L 100.0100, L501.54375, L500.4100, L506.0400, L501.9520, L500.4050 ####[facility] [address] [place], [address] Calcium [Mass/Vol] 10.3 mg/dL Normal 7.6-11.0 [facility] Comment on above: Order Comment: Order Date: 06/07/24Order Info: 0786- - CMPCRITICAL RESULTS CALL [phone].SMITH ORDERED CBCD,CMP,T4F,T3F,TSH,LIPIDOSU [place] STANDING ORDER ORDERED CBCD,CMP,BCR-ABLOrder Info: - LIPIDOrder Info: 3051-0 - J9IHlelw Info: 3016-3 - TSHOrder Info: 3024-7 - T4F Performed By: #### L 100.0100, L501.27474, L500.4100, L506.0400, L501.9520, L500.4050 ####[facility] [address] [place], [place], [phone] Chloride [Moles/Vol] 96 mmol/L Low 98-108 [facility] Comment on above: Order Comment: Order Date: 06/07/24Order Info: 0786- - CMPCRITICAL RESULTS CALL [phone].SMITH ORDERED CBCD,CMP,T4F,T3F,TSH,LIPIDOSU [place] STANDING ORDER ORDERED CBCD,CMP,BCR-ABLOrder Info: - LIPIDOrder Info: 3051-0 - V4EMqemd Info: 3016-3 - TSHOrder Info: 3024-7 - T4F Performed By: #### L 100.0100, L501.31627, L500.4100, L506.0400, L501.9520, L500.4050 ####[facility] [address] [place], [place], [phone] CO2 [Moles/Vol] 26.3 mmol/L Normal 21.0-32.0 [facility] Comment on above: Order Comment: Order Date: 06/07/24Order Info: 0786-1 - CMPCRITICAL RESULTS CALL [phone].SMITH ORDERED CBCD,CMP,T4F,T3F,TSH,LIPIDOSU [place] STANDING ORDER ORDERED CBCD,CMP,BCR-ABLOrder Info: [id number] - LIPIDOrder Info: 1-0 - E4MIohgu Info: 3 - TSHOrder Info: 30247 - T4F Performed By: #### L 100.0100, L501.45687, L500.4100, L506.0400, L501.9520, L500.4050 ####[facility] [address] [place], [place], [address] Creatinine [Mass/Vol] 0.85 mg/dL Normal 0.70-1.20 [facility] Comment on above: Order Comment: Order Date: 06/07/24Order Info: 0786-1 - CMPCRITICAL RESULTS CALL [phone].SMITH ORDERED CBCD,CMP,T4F,T3F,TSH,LIPIDOSU [place] STANDING ORDER ORDERED CBCD,CMP,BCR-ABLOrder Info: - LIPIDOrder Info: 0 - D9HYnbxq Info: 3015-04 - TSHOrder Info: 7 - T4F Performed By: #### L 100.0100, L501.82216, L500.4100, L506.0400, L501.9520, L500.4050 ####[facility] [address] [place], [place], [phone] GAP 12 Normal 5-15 [facility] Comment on above: Order Comment: Order Date: 06/07/24Order Info: 0786-1 - CMPCRITICAL RESULTS CALL [phone].SMITH ORDERED CBCD,CMP,T4F,T3F,TSH,LIPIDOSU [place] STANDING ORDER ORDERED CBCD,CMP,BCR-ABLOrder Info: [id number] - LIPIDOrder Info: 3050-0 - Q7EFqrnf Info: 3 - TSHOrder Info: 30247 - T4F Performed By: #### L 100.0100, L501.39193, L500.4100, L506.0400, L501.9520, L500.4050 ####[facility] [address] [place], [place], [address] GFR/1.73 sq M.predicted among non-blacks MDRD (S/P/Bld) [Vol rate/Area] 76 mL/min/{1.73_m2} Normal >60 [facility] Comment on above: Order Comment: Order Date: 06/07/24Order Info: 0786-1 - CMPCRITICAL RESULTS CALL [phone].SMITH ORDERED CBCD,CMP,T4F,T3F,TSH,LIPIDOSU [place] STANDING ORDER ORDERED CBCD,CMP,BCR-ABLOrder Info: [id number] - LIPIDOrder Info: 3051-0 - K6ZKlbqh Info: 3016-3 - TSHOrder Info: 3024-7 - T4F Result Comment: mL/m in/1.73m2 CKD-EPI Creatinine Equation (2020) Performed By: #### L 100.0100, L501.88472, L500.4100, L506.0400, L501.9520, L500.4050 ####[facility] [address] [place], [address] Globulin (S) [Mass/Vol] 2.8 g/dL Normal 2.2-4.2 [facility] Comment on above: Order Comment: Order Date: 06/07/24Order Info: 0786-1 - CMPCRITICAL RESULTS CALL [phone].SMITH ORDERED CBCD,CMP,T4F,T3F,TSH,[facility]U [facility] STAND[facility] ORDERED CBCD,CMP,BCR-ABLOrder Info: [id number] - LIPIDOrder Info: 3051-0 - F0KGxboh Info: 3016-3 - TSHOrder Info: 3024-7 - T4F Performed By: #### L 100.0100, L501.61781, L500.4100, L506.0400, L501.9520, L500.4050 ####[facility] [address] [place], [address] Glucose [Mass/Vol] 100 mg/dL High 70-99 [facility] Comment on above: Order Comment: Order Date: 06/07/24Order Info: 0786- - CMPCRITICAL RESULTS CALL [phone].SMITH ORDERED CBCD,CMP,T4F,T3F,TSH,LIPIDOSU [place] STANDING ORDER ORDERED CBCD,CMP,BCR-ABLOrder Info: [id number] - LIPIDOrder Info: 3051-0 - A6WSenuk Info: 3016-3 - TSHOrder Info: 3024-7 - T4F Performed By: #### L 100.0100, L501.44766, L500.4100, L506.0400, L501.9520, L500.4050 ####[facility] [address] [place], [address] Potassium [Moles/Vol] 4.2 mmol/L Normal 3.3-5.1 [facility] Comment on above: Order Comment: Order Date: 06/07/24Order Info: 785-02 - CMPCRITICAL RESULTS CALL [phone].SMITH ORDERED CBCD,CMP,T4F,T3F,TSH,LIPIDOSU [place] STANDING ORDER ORDERED CBCD,CMP,BCR-ABLOrder Info: - LIPIDOrder Info: 3051-0 - Q7UIcpgv Info: 3016-3 - TSHOrder Info: 3024-7 - T4F Performed By: #### L 100.0100, L501.66774, L500.4100, L506.0400, L501.9520, L500.4050 ####[facility] [address] [place], [address] Sodium [Moles/Vol] 135 mmol/L Normal 133-145 [facility] Comment on above: Order Comment: Order Date: 06/07/24Order Info: 0786-1 - CMPCRITICAL RESULTS CALL [phone].SMITH ORDERED CBCD,CMP,T4F,T3F,TSH,LIPIDOSU [place] STANDING ORDER ORDERED CBCD,CMP,BCR-ABLOrder Info: [id number] - LIPIDOrder Info: 3051-0 - H0KCmqrb Info: 3016-3 - TSHOrder Info: 3024-7 - T4F Performed By: #### L 100.0100, L501.40968, L500.4100, L506.0400, L501.9520, L500.4050 ####[facility] [address] [place], [address] T PROT 7.3 g/dL Normal 5.9-8.4 [facility] Comment on above: Order Comment: Order Date: 06/07/24Order Info: 0786-1 - CMPCRITICAL RESULTS CALL [phone].SMITH ORDERED CBCD,CMP,T4F,T3F,TSH,LIPIDOSU [place] STANDING ORDER ORDERED CBCD,CMP,BCR-ABLOrder Info: - LIPIDOrder Info: 0 - I9EWvmsl Info: 3 - TSHOrder Info: [id number] - T4F Performed By: #### L 100.0100, L501.82001, L500.4100, L506.0400, L501.9520, L500.4050 ####[facility] [address] [place], [place], [address] Urea nitrogen [Mass/Vol] 17 mg/dL Normal 4-19 [facility] Comment on above: Order Comment: Order Date: 06/07/24Order Info: 0786-1 - CMPCRITICAL RESULTS CALL [phone].SMITH ORDERED CBCD,CMP,T4F,T3F,TSH,LIPIDOSU [place] STANDING ORDER ORDERED CBCD,CMP,BCR-ABLOrder Info: [id number] - LIPIDOrder Info: 3051-0 - Q9AKdwun Info: 3016-3 - TSHOrder Info: 3024-7 - T4F Performed By: #### L 100.0100, L501.12032, L500.4100, L506.0400, L501.9520, L500.4050 ####[facility] [address] [place], [place], [address] Eosinophil percentageOrdered By: Shae Cota on 07-24-2024 Eosinophils/100 WBC (Bld) 3.7 % 0-5 [facility] Erythrocyte distribution wid th ratioOrdered By: Shae Cota on 07-24-2024 Erythrocyte distribution width (RBC) [Ratio] 13.2 % 11.6-14.6 [facility] Erythrocyte distribution wid th standard deviationOrdered By: Shae Cota on 07-24-2024 Erythrocyte distribution width (RBC) [Ratio] 41.9 fl 35.1-43.9 [facility] Free T3on 07-24-2024 Free T3 [Mass/Vol] 2.7 pg/mL Normal 2.18-3.98 [facility] Comment on above: Order Comment: Order Date: 06/07/24Order Info: 0786-1 - CMPCRITICAL RESULTS CALL [phone].SMITH ORDERED CBCD,CMP,T4F,T3F,TSH,LIPIDOSU [facility] STANDING ORDER ORDERED CBCD,CMP,BCR-ABLOrder Info: [id number] - LIPIDOrder Info: 3051-0 - L0VJglvm Info: 3016-3 - TSHOrder Info: 3024-7 - T4F Performed By: #### L 100.0100, L501.93804, L500.4100, L506.0400, L501.9520, L500.4050 ####[facility] [address] [place], [address] Free Y9Gdlfbfm By: Shae hines on 07-24-2024 Free T3 [Mass/Vol] 2.7 pg/mL 2.18-3.98 [facility] Glomerular filtration rate ( GFR) estimation/1.73 sq m using serum, plasma, or whole bOrdered By: Shae Cota on 07-24-2024 GFR/1.73 sq M.predicted among non-blacks MDRD (S/P/Bld) [Vol rate/Area] 76 mL/min/{1.73_m2} >60 [facility] Comment on above: mL/min/1.73m2 CKD-EP I Creatinine Equation (2020) Hematocrit Auto (Bld) [Volum e fraction]Ordered By: Shae Cota on 07-24-2024 Hematocrit (Bld) [Volume fraction] 37.6 % 37-47 [facility] Hemoglobin measurementOrdere d By: Shae Cota on 07-24-2024 Hemoglobin (Bld) [Mass/Vol] 12.3 g/dL 12.0-15.0 [facility] Immature granulocytes/100 WB C Auto (Bld)Ordered By: Shae Cota on 07-24-2024 Immature granulocytes/100 WBC (Bld) 0.400 % 0.0-0.9 [facility] Comment on above: IG% - Immature Granu locytes (promyelocytes, myelocytes and metamyelocytes) > 1% indicates that a LEFT SHIFT is Present. LDL calc ser/plasOrdered By: Shae Cota on 07-24-2024 Cholesterol in LDL [Mass/Vol] 181 mg/dL [facility] Comment on above: Ugbmubosfv=506-956 m g/dL & Higher Dmcg=578 mg/dL or greater Laboratory - Chemistry and C hemistry - challengeOrdered By: Shae Cota on 07-24-2024 AST [Catalytic activity/Vol] 19 U/L <32 [facility] Lipid Profileon 07-24-2024 CHOL:HDL 7.36 Normal [facility] Comment on above: Order Comment: Order Date: 06/07/24Order Info: 0786-1 - CMPCRITICAL RESULTS CALL [phone].SMITH ORDERED CBCD,CMP,T4F,T3F,TSH,LIPIDOSU [facility] STANDING ORDER ORDERED CBCD,CMP,BCR-ABLOrder Info: [id number] - LIPIDOrder Info: 3051-0 - Y3HFbypu Info: 3016-3 - TSHOrder Info: 3024-7 - T4F Performed By: #### L 100.0100, L501.68785, L500.4100, L506.0400, L501.9520, L500.4050 ####[facility] [address] [place], [place], [id number] Cholesterol [Mass/Vol] 296 mg/dL High <=200 [facility] Comment on above: Order Comment: Order Date: 06/07/24Order Info: 0786-1 - CMPCRITICAL RESULTS CALL [phone].SMITH ORDERED CBCD,CMP,T4F,T3F,TSH,LIPIDOSU [place] STANDING ORDER ORDERED CBCD,CMP,BCR-ABLOrder Info: [id number] - LIPIDOrder Info: 3051-0 - A8LRtuyx Info: 3016-3 - TSHOrder Info: 3024-7 - T4F Result Comment: Chol esterol level, Desirable <200 mg/dL Borderline high cholesterol 200-239 mg/dL High cholesterol >=240 mg/dL Recommendations of the NCEP Adult Treatment Panel for the following risk-cutoff thresholds for the [place] population. Performed By: #### L 100.0100, L501.48715, L500.4100, L506.0400, L501.9520, L500.4050 ####[facility] [id number] [place], [address] Cholesterol in HDL [Mass/Vol] 40 mg/dL Normal [facility] Comment on above: Order Comment: Order Date: 06/07/24Order Info: [id number] - CMPCRITICAL RESULTS CALL [phone].SMITH ORDERED CBCD,CMP,T4F,T3F,TSH,LIPIDOSU [place]NER STANDING ORDER ORDERED CBCD,CMP,BCR-ABLOrder Info: [id number] - LIPIDOrder Info: 3051-0 - [id number] Info: 3016-3 - TSHOrder Info: 3024-7 - T4F Result Comment: [place] on[place] Cholesterol Education Program (NCEP) guidelines: <40 mg/dL: Low HDL-cholesterol (major risk factor for CHD) >= 60 mg/dL: High HDL-cholesterol (negative risk factor for CHD) HDL-cholesterol is affected by a number of factors, e.g. smoking, exercise, hormones, sex and age. Performed By: #### L 100.0100, L501.62474, L500.4100, L506.0400, L501.9520, L500.4050 ####[facility] [id number] [place], [place], [phone]) Cholesterol in LDL [Mass/Vol] 181 mg/dL Normal [facility] Comment on above: Order Comment: Order Date: 06/07/24Order Info: [id number] - CMPCRITICAL RESULTS CALL [phone].SMITH ORDERED CBCD,CMP,T4F,T3F,TSH,LIPIDOSU [place] STANDING ORDER ORDERED CBCD,CMP,BCR-ABLOrder Info: [id number] - LIPIDOrder Info: 3051-0 - [id number] Info: 3016-3 - TSHOrder Info: 3024-7 - T4F Result Comment: Bord mmkkka=443-363 mg/dL Higher Ixju=067 mg/dL or greater Performed By: #### L 100.0100, L501.38028, L500.4100, L506.0400, L501.9520, L500.4050 ####[facility] [id number] [place], [address] Cholesterol in VLDL [Mass/Vol] 75 mg/dL High 5-40 [facility] Comment on above: Order Comment: Order Date: 06/07/24Order Info: [id number]- - CMPCRITICAL RESULTS CALL [phone].SMITH ORDERED CBCD,CMP,T4F,T3F,TSH,LIPIDOSU [place]NER STANDING ORDER ORDERED CBCD,CMP,BCR-ABLOrder Info: [id number] - LIPIDOrder Info: 305-0 - [id number] Info: 3015-3 - TSHOrder Info: 3024-7 - T4F Performed By: #### L 100.0100, L501.69991, L500.4100, L506.0400, L501.9520, L500.4050 ####[facility] [id number] [place], [address] Triglyceride [Mass/Vol] 373 mg/dL High [facility] Comment on above: Order Comment: Order Date: 06/07/24Order Info: [id number] - CMPCRITICAL RESULTS CALL [phone].SMITH ORDERED CBCD,CMP,T4F,T3F,TSH,LIPIDOSU ANTHONYOFELIA STANDING ORDER ORDERED CBCD,CMP,BCR-ABLOrder Info: [id number] - LIPIDOrder Info: 3051-0 - [id number] Info: 3016-3 - TSHOrder Info: 3024-7 - T4F Result Comment: The drugs N-Acetylcysteine and Metamizole may falsely depress this assay. Normal range: <150 mg/dL Borderline High: 150-199 mg/dL High: 200-499 mg/dL Very High: >500 mg/dL Performed By: #### L 100.0100, L501.03897, L500.4100, L506.0400, L501.9520, L500.4050 ####[facility] [id number] [place], [address] MCV (mean corpuscular volume ) determinationOrdered By: Shae Cota on 07-24-2024 MCV (RBC) [Entitic vol] 85.8 fL 81-99 [facility] Mean corpuscular hemoglobin (MCH) determinationOrdered By: Shae Cota on 07-24-2024 MCH (RBC) [Entitic mass] 28.1 pg 27.0-32.0 [facility] Mean corpuscular hemoglobin concentration (MCHC) determinationOrdered By: Shae Cota on 07-24-2024 MCHC (RBC) [Mass/Vol] 32.7 g/dL 32-36 [facility] Mean platelet volume determi nationOrdered By: Shae Cota on 07-24-2024 Platelet mean volume (Bld) [Entitic vol] 10.6 fL 6.2-12.0 [facility] Monocyte percentageOrdered B y: Shae Cota on 07-24-2024 Monocytes/100 WBC (Bld) 12.2 % High 0-10 [facility] Neutrophil percentageOrdered By: Shae Cota on 07-24-2024 Neutrophils/100 WBC (Bld) 54.2 % 47-70 [facility] Nucleated red blood cell per centageOrdered By: Shae Cota on 07-24-2024 Nucleated RBC/100 WBC (Bld) [Ratio] 0 % 0-5 [facility] Platelet countOrdered By: Felix Cota on 07-24-2024 Platelets (Bld) [#/Vol] 268 10*3/uL 150-450 [facility] Potassium measurement (mass/ volume)Ordered By: Shae Cota on 07-24-2024 Potassium (Unsp spec) [Mass/Vol] 4.2 mmol/L 3.3-5.1 [facility] RBC Auto (Bld) [#/Vol]Ordere d By: Shae Cota on 07-24-2024 RBC (Bld) [#/Vol] 4.38 10*6/uL 4.2-5.4 [facility] Screening total cholesterol/ high density lipoprotein (HDL) cholesterol ratioOrdered By: Shae Cota on 07-24-2024 Cholesterol.total/Chol esterol in HDL [Mass ratio] 7.36 {ratio} [facility] Serum creatinine measurement (mass/volume)Ordered By: Shae Cota on 07-24-2024 Creatinine [Mass/Vol] 0.85 mg/dL 0.70-1.20 [facility] Serum globulin measurementOr dered By: Shae Cota on 07-24-2024 Globulin (S) [Mass/Vol] 2.8 g/dL 2.2-4.2 [facility] Serum glucose measurement (m ass/volume)Ordered By: hSae Cota on 07-24-2024 Glucose [Mass/Vol] 100 mg/dL High 70-99 [facility] Serum or plasma alanine quintana otransferase (ALT) measurementOrdered By: Shae Cota on 07-24-2024 ALT [Catalytic activity/Vol] 14 U/L <35 [facility] Serum or plasma albumin elroy urement (mass/volume)Ordered By: Shae Cota on 07-24-2024 Albumin [Mass/Vol] 4.5 g/dL 3.4-4.8 [facility] Serum or plasma albumin/glob ulin mass ratioOrdered By: Shae Cota on 07-24-2024 Albumin/Globulin [Mass ratio] 1.6 {ratio} 0.9-2.4 [facility] Serum or plasma alkaline ofe sphatase measurementOrdered By: Shae Cota on 07-24-2024 ALP [Catalytic activity/Vol] 97 U/L 35-104 [facility] Serum or plasma calcium elroy urement (mass/volume)Ordered By: Shae Cota on 07-24-2024 Calcium [Mass/Vol] 10.3 mg/dL 7.6-11.0 [facility] Serum or plasma cholesterol in HDL measurement (mass/volume)Ordered By: Shae Cota on 07-24-2024 Cholesterol in HDL [Mass/Vol] 40 mg/dL >40 [facility] Comment on above: National Cholesterol Education Program (NCEP) guidelines:<40 mg/dL: Low HDL-cholesterol (major risk factor for CHD)>= 60 mg/dL: High HDL-cholesterol (negative risk factor for CHD)HDL-cholesterol is affected by a number of factors, e.g. smoking, exercise, hormones, sex and age. Serum or plasma cholesterol measurement (mass/volume)Ordered By: Shae Cota on 07-24-2024 Cholesterol [Mass/Vol] 296 mg/dL High <201 [facility] Comment on above: Cholesterol level, D esirable <200 mg/dLBorderline high cholesterol 200-239 mg/dLHigh cholesterol >=240 mg/dLRecommendations of the NCEP Adult Treatment Panel for the following risk-cutoff thresholds for the [place] population. Serum or plasma urea nitroge n measurement (mass/volume)Ordered By: Shae Cota on 07-24-2024 Urea nitrogen [Mass/Vol] 17 mg/dL 4-19 [facility] Sodium levelOrdered By: Shae Cota on 07-24-2024 Sodium [Moles/Vol] 135 mmol/L 133-145 [facility] T4 Free Directon 07-24-2024 T4 FREE DIRECT 1.30 ng/dL Normal 0.76-1.46 [facility] Comment on above: Order Comment: Order Date: 06/07/24Order Info: [id number] - CMPCRITICAL RESULTS CALL [phone].SMITH ORDERED CBCD,CMP,T4F,T3F,TSH,L[facility]IDOS[facility] STAND[facility] ORDERED CBCD,CMP,BCR-ABLOrder Info: [id number] - LIPIDOrder Info: 3051-0 - P6AMmenc Info: 3016-3 - TSHOrder Info: 3024-7 - T4F Performed By: #### L 100.0100, L501.81629, L500.4100, L506.0400, L501.9520, L500.4050 ####[facility] [address] [place], [place], [id number] T4 freeOrdered By: Shae hines on 07-24-2024 Free T4 [Mass/Vol] 1.30 ng/dL 0.76-1.46 [facility] TSH DL <= 0.005 mIU/L QnOrde red By: Shae Cota on 07-24-2024 TSH Qn 0.553 uIU/mL 0.300-4.20 0 [facility] Thyroid Stim Hormone (TSH)on 07-24-2024 TSH 0.553 uIU/mL Normal 0.300-4.20 0 [facility] Comment on above: Order Comment: Order Date: 06/07/24Order Info: [id number] - CMPCRITICAL RESULTS CALL [phone].SMITH ORDERED CBCD,CMP,T4F,T3F,TSH,LIPIDOSU [facility] ORDER ORDERED CBCD,CMP,BCR-ABLOrder Info: [id number] - LIPIDOrder Info: 3051-0 - Q2LKfctw Info: 3016-3 - TSHOrder Info: 3024-7 - T4F Performed By: #### L 100.0100, L501.33888, L500.4100, L506.0400, L501.9520, L500.4050 ####[facility] [address] [place], [place], [id number] Total proteinOrdered By: Myla Cota on 07-24-2024 Protein [Mass/Vol] 7.3 g/dL 5.9-8.4 [facility] Triglycerides measurementOrd ered By: Shae Cota on 07-24-2024 Triglyceride [Mass/Vol] 373 mg/dL High <199 [facility] Comment on above: The drugs N-Acetylcy steine and Metamizole may falsely depress this assay. Normal range: <150 mg/dLBorderline High: 150-199 mg/dLHigh: 200-499 mg/dLVery High: >500 mg/dL White blood cell (WBC) count Ordered By: Shae Cota on 07-24-2024 WBC (Bld) [#/Vol] 5.1 10*3/uL 4.4-11.0 [facility] Miscellaneous Lab Procedureo n 01-31-2024 [facility] LAB TEST Normal [facility] Comment on above: Order Comment: [id number] BCR-ABL LAV WB [id number] BCR-ABL LAV WB RT Result Comment: TEST RESULTS LIMITS BCR-ABL1, CML/ALL, PCR, Quant e13a2 (b2a2) transcript <0.0032 % % e14a2 (b3a2) transcript <0.0032 % % e1a2 transcript <0.0032 % % Interpretation: Negative NEGATIVE for the BCR-ABL1 e1a2 (p190), e13a2 (b2a2, p210) and e14a2 (b3a2, p210) fusion transcripts. These results do not rule out the presence of rare BCR-ABL1 transcripts not detected by this assay. Director Review Technical Component performed at [facility] RT Professional Component performed by: [employer] Duane Hebert, PhD, [facility] Director, Molecular Oncology [address] [place] [address] [place] [address] Background This assay can detect three different types of BCR-ABL1 fusion transcripts associated with CML, ALL, and AML: e13a2 (previously b2a2) and e14a2 (previously b3a2) (major breakpoint, p210), as well as e1a2 (minor breakpoint, p190). The e13a2 and e14a2 transcript values are titrated to the current International Scale (IS). The standardized baseline is 100% BCR-ABL1 (IS) and major molecular response (MMR) is equivalent to 0.1% BCR-ABL1 (IS) corresponding to a 3-log reduction. Results should be correlated with appropriate clinical and laboratory information as indicated. Methodology Total RNA is isolated from the sample and subject to a real-time, reverse transcriptase polymerase chain reaction (RT-PCR). The PCR primers and probes are specific for BCR-ABL1 e13a2, e14a2 and e1a2 fusion transcripts. The ABL1 transcript is amplified as the control for cDNA quantity and quality. Serial dilutions of a validated positive control RNA with known t(9;22) BCR-ABL1 are used as reference for quantification of BCR-ABL1 relative to ABL1. The numeric BCR-ABL1 level is reported as % BCR-ABL1/ABL1 and the detection sensitivity is 4.5 log below the standard baseline (<0.0032%). This test was developed and its performance characteristics determined by [facility]. It has not been cleared or approved by the Food and Drug Administration. TESTING PERFORMED AT [facility]. ORIGINAL REPORT ON FILE IN LAB CONTAINS ADDITIONAL TEST SITE INFORMATION. Performed By: #### L 100.0100, L801.1541 ####[facility] [address] [place], [address] CBC W/Diff, Automatedon 11-0 1-4 Absolute Lymph 1.94 X10 3/uL Normal 0.83-4.51 [facility] Comment on above: Performed By: #### L 100.0100, L801.1541 ####[facility] [address] [place], [address] Absolute Neut 5.9 X10 3/uL Normal 2.0-7.7 [facility] Comment on above: Performed By: #### L 100.0100, L801.1541 ####[facility] [address] [place], [address] Basophils/100 WBC (Bld) 0.6 % Normal 0-1 [facility] Comment on above: Performed By: #### L 100.0100, L801.1541 ####[facility] [address] [place], [address] Eosinophils/100 WBC (Bld) 2.1 % Normal 0-5 [facility] Comment on above: Performed By: #### L 100.0100, L801.1541 ####[facility] [address] [place], [address] Erythrocyte distribution width (RBC) [Ratio] 13.0 % Normal 11.6-14.6 [facility] Comment on above: Performed By: #### L 100.0100, L801.1541 ####[facility] [address] [place], [address] Hematocrit (Bld) [Volume fraction] 40.5 % Normal 37-47 [facility] Comment on above: Performed By: #### L 100.0100, L801.1541 ####[facility] [address] [place], [address] Hemoglobin (Bld) [Mass/Vol] 13.4 g/dL Normal 12.0-15.0 [facility] Comment on above: Performed By: #### L 100.0100, L801.1541 ####[facility] [address] [place], [address] IG% 0.200 Normal 0.0-0.9 [facility] Comment on above: Result Comment: IG% - Immature Granulocytes (promyelocytes, myelocytes and metamyelocytes) > 1% indicates that a LEFT SHIFT is Present. Performed By: #### L 100.0100, L801.1541 ####[facility] [address] [place], [address] Lymphocytes/100 WBC (Bld) 21.9 % Normal 19-41 [facility] Comment on above: Performed By: #### L 100.0100, L801.1541 ####[facility] [address] [place], [address] MCH (RBC) [Entitic mass] 28.5 pg Normal 27.0-32.0 [facility] Comment on above: Performed By: #### L 100.0100, L801.1541 ####[facility] [address] [place], [address] MCHC (RBC) [Mass/Vol] 33.1 g/dL Normal 32-36 [facility] Comment on above: Performed By: #### L 100.0100, L801.1541 ####[facility] [address] [place], [address] MCV (RBC) [Entitic vol] 86.2 fL Normal 81-99 [facility] Comment on above: Performed By: #### L 100.0100, L801.1541 ####[facility] [address] [place], [address] Monocytes/100 WBC (Bld) 8.6 % Normal 0-10 [facility] Comment on above: Performed By: #### L 100.0100, L801.1541 ####[facility] [address] [place], [address] Neutrophils/100 WBC (Bld) 66.6 % Normal 47-70 [facility] Comment on above: Performed By: #### L 100.0100, L801.1541 ####[facility] [address] [place], [address] Nucleated RBC (Bld) [#/Vol] 0 10*3/uL Normal 0-5 [facility] Comment on above: Performed By: #### L 100.0100, L801.1541 ####[facility] [address] [place], [address] Platelet mean volume (Bld) [Entitic vol] 11.2 fL Normal 6.2-12.0 [facility] Comment on above: Performed By: #### L 100.0100, L801.1541 ####[facility] [address] [place], [address] Platelets (Bld) [#/Vol] 304 10*3/uL Normal 150-450 [facility] Comment on above: Performed By: #### L 100.0100, L801.1541 ####[facility] [address] [place], [address] RBC (Bld) [#/Vol] 4.70 10*6/uL Normal 4.2-5.4 [facility] Comment on above: Performed By: #### L 100.0100, L801.1541 ####[facility] [address] [place], [address] RDW SD 40.9 fl Normal 35.1-43.9 [facility] Comment on above: Performed By: #### L 100.0100, L801.1541 ####[facility] [address] [place], [address] WBC (Bld) [#/Vol] 8.8 10*3/uL Normal 4.4-11.0 [facility] Comment on above: Performed By: #### L 100.0100, L801.1541 ####[facility] [address] [place], [address] Comprehensive Metabolic Prof [facility] 12-29-2023 Albumin [Mass/Vol] 4.3 g/dL Normal 3.2-5.0 [facility] Comment on above: Performed By: #### L 500.4050 #### [facility] [address] [place], [address] Albumin/Globulin [Mass ratio] 1.2 {ratio} Normal 0.9-2.4 [facility] Comment on above: Performed By: #### L 500.4050 #### [facility] [address] [place], [address] ALK P 97 U/L Normal 45-117 [facility] Comment on above: Performed By: #### L 500.4050 #### [facility] [address] [place], [address] ALT [Catalytic activity/Vol] 21 U/L Normal 13-56 [facility] Comment on above: Performed By: #### L 500.4050 #### [facility] [address] [place], [address] AST [Catalytic activity/Vol] 19 U/L Normal 15-37 [facility] Comment on above: Performed By: #### L 500.4050 #### [facility] [address] [place], [address] Bilirubin [Mass/Vol] 0.50 mg/dL Normal 0.20-1.00 [facility] Comment on above: Result Comment: For patients on eltrombopag therapy, use of Dimension [place] TBIL is not recommended. Performed By: #### L 500.4050 #### [facility] [address] [place], [address] BUN/CRE 21.5 RATIO High 10-20 [facility] Comment on above: Performed By: #### L 500.4050 #### [facility] [address] [place], [address] CA,Total 10.1 mg/dL Normal 8.5-10.1 [facility] Comment on above: Performed By: #### L 500.4050 #### [facility] [address] [place], [address] Chloride [Moles/Vol] 98 mmol/L Normal 98-107 [facility] Comment on above: Performed By: #### L 500.4050 #### [facility] [address] [place], [address] CO2 [Moles/Vol] 28.0 mmol/L Normal 21.0-32.0 [facility] Comment on above: Performed By: #### L 500.4050 #### [facility] [address] [place], [address] Creatinine [Mass/Vol] 0.88 mg/dL Normal 0.55-1.02 [facility] Comment on above: Result Comment: The validity of the calculated GFR GFRAA in patients over 70 years has not been determined. Clinical correlation is essential. Performed By: #### L 500.4050 #### [facility] [address] [place], [address] EST GFR - AA 82 mL/min Normal >60 [facility] Comment on above: Result Comment: Afri can [place] GFR Calc Performed By: #### L 500.4050 #### [facility] [address] [place], [address] GAP 7 Normal 5-15 [facility] Comment on above: Performed By: #### L 500.4050 #### [facility] [address] [place], [address] GFR/1.73 sq M.predicted among non-blacks MDRD (S/P/Bld) [Vol rate/Area] 68 mL/min/{1.73_m2} Normal >60 [facility] Comment on above: Result Comment: Non- GFR Calc Performed By: #### L 500.4050 #### [facility] [address] [place], [address] Globulin (S) [Mass/Vol] 3.5 g/dL Normal 2.2-4.2 [facility] Comment on above: Performed By: #### L 500.4050 #### [facility] [address] [place], [address] Glucose [Mass/Vol] 87 mg/dL Normal 74-106 [facility] Comment on above: Performed By: #### L 500.4050 #### [facility] [address] [place], [address] Potassium [Moles/Vol] 4.3 mmol/L Normal 3.5-5.1 [facility] Comment on above: Performed By: #### L 500.4050 #### [facility] [address] [place], [address] Sodium [Moles/Vol] 134 mmol/L Low 136-145 [facility] Comment on above: Performed By: #### L 500.4050 #### [facility] [address] [place], [address] T PROT 7.8 g/dL Normal 6.4-8.2 [facility] Comment on above: Performed By: #### L 500.4050 #### [facility] [address] [place], [address] Urea nitrogen [Mass/Vol] 19 mg/dL High 7-18 [facility] Comment on above: Performed By: #### L 500.4050 #### [facility] [address] [place], [address] Free T3on 12-28-2023 Free T3 [Mass/Vol] 2.6 pg/mL Normal 2.18-3.98 [facility] Comment on above: Order Comment: Order Date: 11/15/23 Order Info: 3051-0 - T3F Order Info: 3016-3 - TSH Order Info: 3024-7 - T4F random, non-observed Performed By: #### L 501.87684, L506.0400, L501.9520 #### [facility] [address] [place], [address] T4 Free Directon 12-28-2023 T4 FREE DIRECT 1.12 ng/dL Normal 0.76-1.46 [facility] Comment on above: Order Comment: Order Date: 11/15/23 Order Info: 3051-0 - T3F Order Info: 3 - TSH Order Info: 7 - T4F random, non-observed Performed By: #### L 501.18662, L506.0400, L501.9520 #### [facility] [address] [place], [address] Thyroid Stim Hormone (TSH)on 12-28-2023 TSH 0.745 uIU/mL Normal 0.358-3.74 0 [facility] Comment on above: Order Comment: Order Date: 11/15/23 Order Info: 3050-0 - T3F Order Info: 3 - TSH Order Info: 7 - T4F random, non-observed Performed By: #### L 501.93620, L506.0400, L501.9520 #### [facility] [address] [place], [address] Urine Drug Screen (VISTA)on 12-28-2023 AMPHETAMINES Negative Normal <1000 ng/mL [facility] Comment on above: Order Comment: Order Date: 05/09/23 Order Info: 0819-1 - UDS random, non-observed UNK Performed By: #### L 505.5000 #### [facility] [place], [address] BARBITIURATES Negative Normal < 200 ng/mL [facility] Comment on above: Order Comment: Order Date: 05/09/23 Order Info: 08- - UDS random, non-observed UNK Performed By: #### L 505.5000 #### [facility] [address] [place], [address] BENZODIAZIPINE Negative Normal < 200 ng/mL [facility] Comment on above: Order Comment: Order Date: 05/09/23 Order Info: 0819- - UDS random, non-observed UNK Performed By: #### L 505.5000 #### [facility] [address] [place], [address] COCAINE Negative Normal < 300 ng/mL [facility] Comment on above: Order Comment: Order Date: 05/09/23 Order Info: 818- - UDS random, non-observed UNK Performed By: #### L 505.5000 #### [facility] [address] [place], [address] ECSTACY Negative Normal < 500 ng/mL [facility] Comment on above: Order Comment: Order Date: 05/09/23 Order Info: 19-1 - UDS random, non-observed UNK Performed By: #### L 505.5000 #### [facility] [address] [place], [address] METHADONE Negative Normal < 300 ng/mL [facility] Comment on above: Order Comment: Order Date: 05/09/23 Order Info: 818- - UDS random, non-observed UNK Performed By: #### L 505.5000 #### [facility] [address] [place], [address] OPIATES Negative Normal < 300 ng/mL [facility] Comment on above: Order Comment: Order Date: 05/09/23 Order Info: 818- - UDS random, non-observed UNK Performed By: #### L 505.5000 #### [facility] [address] [place], [address] PCP Negative Normal < 25 ng/mL [facility] Comment on above: Order Comment: Order Date: 05/09/23 Order Info: 818-1 - UDS random, non-observed UNK Performed By: #### L 505.5000 #### [facility] [address] [place], [address] THC Negative Normal < 50 ng/mL [facility] Comment on above: Order Comment: Order Date: 05/09/23 Order Info: 818-1 - UDS random, non-observed UNK Performed By: #### L 505.5000 #### [facility] [address] [place], [address] VISTA UDS PH 6 Normal [facility] Comment on above: Order Comment: Order Date: 05/09/23 Order Info: 0819-1 - UDS random, non-observed UNK Performed By: #### L 505.5000 #### [facility] [address] [place], [address] Vitamin D 1,25-Dihydroxyon 0 11-17-2023 VIT D 1,25 DIHY 29.2 pg/mL Normal 24.8-81.5 [facility] Comment on above: Order Comment: Order Date: 11/06/23Order Info: [id number] - [id number] Result Comment: Perf ormed at: BN - [facility] [address] [id number] Cleaner And Preparer: Dari Londono MD, Phone: [phone] Performed By: #### L 3300.0960 ####[facility] [address] [place], [address] Basic Metabolic Profile (BMP )on 11-14-2023 BUN/CRE 22.3 RATIO High 10-20 [facility] Comment on above: Order Comment: Order Date: 11/14/23Order Info: 0667-1 - BMPInterface Comments:add onOrder Info: - MGComments: add onadd on Performed By: #### L 500.2500, L506.1000 ####[facility] [address] [place], [address] CA,Total 10.3 mg/dL High 8.5-10.1 [facility] Comment on above: Order Comment: Order Date: 11/14/23Order Info: 0667-1 - BMPInterface Comments:add onOrder Info: - MGComments: add onadd on Performed By: #### L 500.2500, L506.1000 ####[facility] [address] [place], [address] Chloride [Moles/Vol] 101 mmol/L Normal 98-107 [facility] Comment on above: Order Comment: Order Date: 11/14/23Order Info: 0667-1 - BMPInterface Comments:add onOrder Info: - MGComments: add onadd on Performed By: #### L 500.2500, L506.1000 ####[facility] [address] [place], [address] CO2 [Moles/Vol] 33.0 mmol/L High 21.0-32.0 [facility] Comment on above: Order Comment: Order Date: 11/14/23Order Info: 0667-1 - BMPInterface Comments:add onOrder Info: - MGComments: add onadd on Performed By: #### L 500.2500, L506.1000 ####[facility] [address] [place], [address] Creatinine [Mass/Vol] 0.94 mg/dL Normal 0.55-1.02 [facility] [facility] Comment on above: Order Comment: Order Date: 11/14/23Order Info: [id number] - BMPInterface Comments:add onOrder Info: MGComments: add onadd on Result Comment: The validity of the calculated GFR GFRAA in patients over 70 years has not been determined. Clinical correlation is essential. Performed By: #### L 500.2500, L506.1000 ####[facility] [address] [place], [address] EST GFR - AA 76 mL/min Normal >60 [facility] Comment on above: Order Comment: Order Date: 11/14/23Order Info: [id number] - BMPInterface Comments:add onOrder Info: MGComments: add onadd on Result Comment: Afri can [place] GFR Calc Performed By: #### L 500.2500, L506.1000 ####[facility] [address] [place], [address] GAP 4 Low 5-15 [facility] Comment on above: Order Comment: Order Date: 11/14/23Order Info: [id number] - BMPInterface Comments:add onOrder Info: - MGComments: add onadd on Performed By: #### L 500.2500, L506.1000 ####[facility] [address] [place], [address] GFR/1.73 sq M.predicted among non-blacks MDRD (S/P/Bld) [Vol rate/Area] 63 mL/min/{1.73_m2} Normal >60 [facility] Comment on above: Order Comment: Order Date: 11/14/23Order Info: [id number] - BMPInterface Comments:add onOrder Info: MGComments: add onadd on Result Comment: Non- GFR Calc Performed By: #### L 500.2500, L506.1000 ####[facility] [address] [place], [address] Glucose [Mass/Vol] 105 mg/dL Normal 74-106 [facility] Comment on above: Order Comment: Order Date: 11/14/23Order Info: [id number] - BMPInterface Comments:add onOrder Info: - MGComments: add onadd on Result Comment: Fast ing Glucose result from 100 to 125 mg/dL suggests IMPAIRED HOMEOSTASIS per A.D.A. criteria. Performed By: #### L 500.2500, L506.1000 ####[facility] [address] [place], [address] Potassium [Moles/Vol] 4.1 mmol/L Normal 3.5-5.1 [facility] Comment on above: Order Comment: Order Date: 11/14/23Order Info: [id number] - BMPInterface Comments:add onOrder Info: MGComments: add onadd on Performed By: #### L 500.2500, L506.1000 ####[facility] [address] [place], [address] Sodium [Moles/Vol] 138 mmol/L Normal 136-145 [facility] Comment on above: Order Comment: Order Date: 11/14/23Order Info: [id number] - BMPInterface Comments:add onOrder Info: [id number] - MGComments: add onadd on Performed By: #### L 500.2500, L506.1000 ####[facility] [address] [place], [address] Urea nitrogen [Mass/Vol] 21 mg/dL High 7-18 [facility] Comment on above: Order Comment: Order Date: 11/14/23Order Info: [id number] - BMPInterface Comments:add onOrder Info: [id number] - MGComments: add onadd on Performed By: #### L 500.2500, L506.1000 ####[facility] [address] [place], [address] Magnesiumon 11-14-2023 Magnesium [Mass/Vol] 2.1 mg/dL Normal 1.6-2.6 [facility] Comment on above: Order Comment: Order Date: 11/14/23 Order Info: [id number] - BMP Interface Comments: add on Order Info: [id number] - MG Comments: add on add on Performed By: #### L 509.1000, L501.5200 #### [facility] [address] [place], [address] PTHINon 11-14-2023 PTH 68.9 pg/mL Normal 18.4-80.1 [facility] Comment on above: Order Comment: Inter face Comments: add on Order Date: 11/14/23 Order Info: [id number] - PTHIN Comments: add on Performed By: #### L 509.1000, L501.5200 #### [facility] [address] [place], [address] Vitamin D,25 Hydroxyon 11-13 Vitamin D 25-OH 44.2 ng/mL Normal [facility] Comment on above: Order Comment: Order Date: 11/06/23Order Info: [id number] - ZVCN86dom on Result Comment: Rosmery min D 25(OH) Status Range Deficiency <20 ng/mL (50nmol/L) Insufficiency 20 - 30 ng/mL (50 - 75 nmol/L) Sufficiency 30 - 100 ng/mL (75 - 250 nmol/L) Toxicity >100 ng/mL (>250 nmol/L) Performed By: #### L 500.2500, L506.1000 ####[facility] [address] [place], [address] Magnesiumon 11-06-2023 Magnesium [Mass/Vol] 2.2 mg/dL Normal 1.6-2.6 [facility] Comment on above: Order Comment: MANDA Tuttle ADD MAG TO BLOOD DRAWN 11/03/23 PER Performed By: #### L 501.9520, L501.5200, L500.4050, L501.76276, L506.0400 ####[facility] [address] [place], [address] Comprehensive Metabolic Prof ilon 11-03-2023 Albumin [Mass/Vol] 4.3 g/dL Normal 3.2-5.0 [facility] Comment on above: Performed By: #### L 501.9520, L501.5200, L500.4050, L501.26465, L506.0400 ####[facility] [address] [place], [address] Albumin/Globulin [Mass ratio] 1.2 {ratio} Normal 0.9-2.4 [facility] Comment on above: Performed By: #### L 501.9520, L501.5200, L500.4050, L501.91529, L506.0400 ####[facility] [address] [place], [address] ALK P 87 U/L Normal 45-117 [facility] Comment on above: Performed By: #### L 501.9520, L501.5200, L500.4050, L501.78445, L506.0400 ####[facility] [address] [place], [address] ALT [Catalytic activity/Vol] 21 U/L Normal 13-56 [facility] Comment on above: Performed By: #### L 501.9520, L501.5200, L500.4050, L501.32965, L506.0400 ####[facility] [address] [place], [address] AST [Catalytic activity/Vol] 23 U/L Normal 15-37 [facility] Comment on above: Performed By: #### L 501.9520, L501.5200, L500.4050, L501.60489, L506.0400 ####[facility] [address] [place], [address] Bilirubin [Mass/Vol] 0.50 mg/dL Normal 0.20-1.00 [facility] Comment on above: Result Comment: For patients on eltrombopag therapy, use of Dimension [place] TBIL is not recommended. Performed By: #### L 501.9520, L501.5200, L500.4050, L501.83529, L506.0400 ####[facility] [address] [place], [address] BUN/CRE 37.6 RATIO High 10-20 [facility] Comment on above: Performed By: #### L 501.9520, L501.5200, L500.4050, L501.87382, L506.0400 ####[facility] [address] [place], [address] CA,Total 10.4 mg/dL High 8.5-10.1 [facility] Comment on above: Performed By: #### L 501.9520, L501.5200, L500.4050, L501.22200, L506.0400 ####[facility] [address] [place], [address] Chloride [Moles/Vol] 97 mmol/L Low 98-107 [facility] Comment on above: Performed By: #### L 501.9520, L501.5200, L500.4050, L501.33675, L506.0400 ####[facility] [address] [place], [address] CO2 [Moles/Vol] 31.0 mmol/L Normal 21.0-32.0 [facility] Comment on above: Performed By: #### L 501.9520, L501.5200, L500.4050, L501.54855, L506.0400 ####[facility] [address] [place], [address] Creatinine [Mass/Vol] 0.93 mg/dL Normal 0.55-1.02 [facility] Comment on above: Result Comment: The validity of the calculated GFR GFRAA in patients over 70 years has not been determined. Clinical correlation is essential. Performed By: #### L 501.9520, L501.5200, L500.4050, L501.29242, L506.0400 ####[facility] [address] [place], [address] EST GFR - AA 78 mL/min Normal >60 [facility] Comment on above: Result Comment: Afri can [place] GFR Calc Performed By: #### L 501.9520, L501.5200, L500.4050, L501.41182, L506.0400 ####[facility] [address] [place], [address] GAP 8 Normal 5-15 [facility] Comment on above: Performed By: #### L 501.9520, L501.5200, L500.4050, L501.09352, L506.0400 ####[facility] [address] [place], [address] GFR/1.73 sq M.predicted among non-blacks MDRD (S/P/Bld) [Vol rate/Area] 64 mL/min/{1.73_m2} Normal >60 [facility] Comment on above: Result Comment: Non- GFR Calc Performed By: #### L 501.9520, L501.5200, L500.4050, L501.96518, L506.0400 ####[facility] [address] [place], [address] Globulin (S) [Mass/Vol] 3.6 g/dL Normal 2.2-4.2 [facility] Comment on above: Performed By: #### L 501.9520, L501.5200, L500.4050, L501.02738, L506.0400 ####[facility] [address] [place], [address] Glucose [Mass/Vol] 94 mg/dL Normal 74-106 [facility] Comment on above: Performed By: #### L 501.9520, L501.5200, L500.4050, L501.38771, L506.0400 ####[facility] [address] [place], [address] Potassium [Moles/Vol] 3.6 mmol/L Normal 3.5-5.1 [facility] Comment on above: Performed By: #### L 501.9520, L501.5200, L500.4050, L501.04553, L506.0400 ####[facility] [address] [place], [address] Sodium [Moles/Vol] 136 mmol/L Normal 136-145 [facility] Comment on above: Performed By: #### L 501.9520, L501.5200, L500.4050, L501.04506, L506.0400 ####[facility] [address] [place], [address] T PROT 7.9 g/dL Normal 6.4-8.2 [facility] Comment on above: Performed By: #### L 501.9520, L501.5200, L500.4050, L501.04671, L506.0400 ####[facility] [address] [place], [address] Urea nitrogen [Mass/Vol] 35 mg/dL High 7-18 [facility] Comment on above: Performed By: #### L 501.9520, L501.5200, L500.4050, L501.18681, L506.0400 ####[facility] [address] [place], [address] Free T3on 11-03-2023 Free T3 [Mass/Vol] 2.9 pg/mL Normal 2.18-3.98 [facility] Comment on above: Performed By: #### L 501.9520, L501.5200, L500.4050, L501.63607, L506.0400 ####[facility] [address] [place], [address] T4 Free Directon 11-03-2023 T4 FREE DIRECT 1.24 ng/dL Normal 0.76-1.46 [facility] Comment on above: Performed By: #### L 501.9520, L501.5200, L500.4050, L501.18505, L506.0400 ####[facility] [address] [place], [address] Thyroid Stim Hormone (TSH)on 11-03-2023 TSH 0.085 uIU/mL Low 0.358-3.74 0 [facility] Comment on above: Performed By: #### L 501.9520, L501.5200, L500.4050, L501.96145, L506.0400 ####[facility] [address] [place], [address] Dexa Bone Density Studyon Dexa Bone Density Study [facility] Imaging Services [address] [address] Dexa Bone Density Study MR#: [id number] Acct: [id number] Name: FRANCI ALMONTE Rep #: [id number] : 1960 F 63 From: Qamar garcia MD PCP: Dr. Shae Cota MD Status: [facility] Study: Dexa Bone Density Study Date of Exam: 10/17/23 Exam# [id number] Ordering Dr: Shae Cota MD 1:[id number] STUDY: DUAL ENERGY X-RAY ABSORPTIOMETRY / DXA REASON FOR EXAM: Female, 63 years old. V76.12ScreeningBONE DENSITY REASON FOR EXAM TECHNIQUE: Bone Mineral Density (BMD) measurements of lumbar spine and bilateral hips were obtained. COMPARISON: None. FINDINGS: Lumbar Spine (L1-L4): g/cm2 (0.888) / T-score (-1.4) / Z-score (0.4) Findings are suggestive of osteopenia with a low fracture risk. Left Femur Total: g/cm2 (0.942) / T-score (0.0) / Z-score (1.3) Left Femoral Neck: g/cm2 (0.736) / T-score (-1.0) / Z-score (0.5) Right Femur Total: g/cm2 (0.945) / T-score (0.0) / Z-score (1.3) Right Femoral Neck: g/cm2 (0.719) / T-score (-1.2) / Z-score (0.4) BD/Dexa Bone Density Study IMPRESSION: The patient is considered osteopenic as outlined below according to World Td Organization (WHO) criteria with a low fracture risk. Reference Information: The T-score is the number of standard deviations above or below the standard which is normal for young adults at their peak bone mineral density. The World Health Organization (WHO) interprets the T-scores as follows: Above -1 Normal bone density Between -1 and -2.5 Osteopenia Equal to / or below -2.5 Osteoporosis As a practical clinical guideline, osteopenia may be graded as follows: Mild -1 through -1.5 Moderate -1.6 through -2.0 Severe -2.1 through -2.4 The Z-score is the number of standard deviations above or below age-matched controls. A Z-score of less than -1.5 would be considered abnormal. References: 1. NIH Osteoporosis and Related Bone Diseases www osteo.org 2. International Society for Clinical Densitometry www iscd.org 3. National Osteoporosis Foundation www nof.org Electronically Signed: Qamar Day MD at 7:52 EDT , CC: Dr. Shae Cota MD Pit Supervisor: Signed Normal [facility] Basophil percentageon 2022 Bilirubin [Mass/Vol] 0.40 mg/dL 0.20-1.00 [facility] Comment on above: For patients on eltr ombopag therapy, use of Dimension [place] TBIL is not recommended. Chloride [Moles/Vol] 102 mmol/L 98-107 [facility] Glucose [Mass/Vol] 107 mg/dL 74-106 [facility] Comment on above: Fasting Glucose resu lt from 100 to 125 mg/dL suggests IMPAIRED HOMEOSTASIS per A.D.A. criteria. Potassium [Moles/Vol] 4.0 mmol/L 3.5-5.1 [facility] Protein [Mass/Vol] 7.3 g/dL 6.4-8.2 [facility] Sodium [Moles/Vol] 139 mmol/L 136-145 [facility] Laboratory - Chemistry and C hemistry - challengeon 10-18-2022 ALP [Catalytic activity/Vol] 98 U/L 45-117 [facility] ALT [Catalytic activity/Vol] 29 U/L 13-56 [facility] CO2 [Moles/Vol] 31.0 mmol/L 21.0-32.0 [facility] Globulin (S) [Mass/Vol] 3.5 g/dL 2.2-4.2 [facility] Urea nitrogen/Creatinine [Mass ratio] 16.2 mg/mg 10-20 [facility] No Panel Informationon 10-18 Estimated GFR (MDRD) Amer 64 mL/min >60 [facility] Comment on above: GFR Calc Estimated GFR (MDRD) Non-Af Amer 53 mL/min >60 [facility] Comment on above: Non- GFR Calc Serum or plasma albumin elroy urement (mass/volume)on 10-18-2022 Albumin [Mass/Vol] 3.8 g/dL 3.2-5.0 [facility] Serum or plasma albumin/glob ulin mass ratioon 10-18-2022 Albumin/Globulin [Mass ratio] 1.1 {ratio} 0.9-2.4 [facility] Serum or plasma calcium elroy urement (mass/volume)on 10-18-2022 Calcium [Mass/Vol] 9.8 mg/dL 8.5-10.1 [facility] Serum or plasma creatinine m easurement (mass/volume)on 10-18-2022 Creatinine [Mass/Vol] 1.11 mg/dL 0.55-1.02 [facility] Comment on above: The validity of the calculated GFR & GFRAA in patients over 70 years has not been determined. Clinical correlation is essential. Serum or plasma urea nitroge n measurement (mass/volume)on 10-18-2022 Urea nitrogen [Mass/Vol] 18 mg/dL 7-18 [facility] Thin prep Papanicolaou smear with manual screeningon 10-18-2022 Thin prep Papanicolaou smear with manual screening 22 U/L 15-37 [facility] Thin prep Papanicolaou smear with manual screening 6 5-15 [facility] Absolute lymphocyte counton 09-30-2022 Lymphocytes Auto (Unsp spec) [#/Vol] 1.34 10*3/uL 0.83-4.51 [facility] Basophil percentageon 2022 Basophils/100 WBC (Bld) 0.7 % 0-1 [facility] Eosinophils/100 WBC (Bld) 2.9 % 0-5 [facility] Neutrophils (Bld) [#/Vol] 3.3 10*3/uL 2.0-7.7 [facility] Neutrophils/100 WBC (Bld) 60.1 % 47-70 [facility] WBC (Bld) [#/Vol] 5.4 10*3/uL 4.4-11.0 [facility] Blood erythrocytes count (nu mber/volume)on 09-30-2022 RBC (Bld) [#/Vol] 4.50 10*6/uL 4.2-5.4 [facility] Blood hemoglobin measurement (mass/volume)on 09-30-2022 Hemoglobin (Bld) [Mass/Vol] 12.8 g/dL 12.0-15.0 [facility] Blood lymphocytes/100 leukoc yteson 09-30-2022 Lymphocytes/100 WBC (Bld) 24.7 % 19-41 [facility] Blood monocytes/100 leukocyt eson 09-30-2022 Monocytes/100 WBC (Bld) 11.6 % 0-10 [facility] Blood platelet mean volumeon 09-30-2022 Platelet mean volume (Bld) [Entitic vol] 10.6 fL 6.2-12.0 [facility] Determination of erythrocyte mean corpuscular volume (MCV)on 09-30-2022 MCV (RBC) [Entitic vol] 87.6 fL 81-99 [facility] Hematocrit Auto (Bld) [Volum e fraction]on 09-30-2022 Hematocrit (Bld) [Volume fraction] 39.4 % 37-47 [facility] Laboratory - Hematology and Cell countson 09-30-2022 Erythrocyte distribution width (RBC) [Entitic vol] 42.1 fL 35.1-43.9 [facility] Erythrocyte distribution width (RBC) [Ratio] 13.2 % 11.6-14.6 [facility] Immature granulocytes/100 WBC (Bld) 0.000 % 0.0-0.9 [facility] Comment on above: IG% - Immature Granu locytes (promyelocytes, myelocytes and metamyelocytes) > 1% indicates that a LEFT SHIFT is Present. MCH (RBC) [Entitic mass] 28.4 pg 27.0-32.0 [facility] Nucleated RBC/100 WBC (Bld) [Ratio] 0 % 0-5 [facility] MCHC Auto (RBC) [Mass/Vol]on 09-30-2022 MCHC (RBC) [Mass/Vol] 32.5 g/dL 32-36 [facility] No Panel Informationon 09-30 Miscellaneous Test See comment [facility] Comment on above: TEST RESULTS LIMITSB CR-ABL1, CML/ALL, PCR, [id number] (b2a2) transcript % <0.0032 %e14a2 (b3a2) transcript % <0.0032 %e1a2 transcript % <0.0032 %Interpretation: Negative NEGATIVE for the BCR-ABL1 e1a2 (p190), e13a2 (b2a2, p210) and e14a2 (b3a2, p210) fusion transcripts. These results do not rule out the presence of rare BCR-ABL1 transcripts not detected by this assay.Director ReviewSheila Hebert, PhD, FACMGDirector, Molecular OncologySaint Catherine Hospitalco [facility] for Molecular Biology and [place]ologyGar[place], [place] [phone] assay can detect three different types of BCR-ABL1 fusion transcripts associated with CML, ALL, and AML: e13a2 (previously b2a2) and e14a2 (previously b3a2) (major breakpoint, p210), as well as e1a2 (minor breakpoint, p190). The e13a2 and e14a2 transcript values are titrated to the current International Scale (IS). The standardized baseline is 100% BCR-ABL1 (IS) and major molecular response (MMR) is equivalent to 0.1% BCR-ABL1 (IS) corresponding to a 3-log reduction. Results should be correlated with appropriateclinical and laboratory information as indicated.Methodology Total RNA is isolated from the sample and subject to a real-time,reverse transcriptase polymerase chain reaction (RT-PCR). The PCR primers and probes are specific for BCR-ABL1 e13a2, e14a2 and e1a2 fusion transcripts. The ABL1 transcript is amplified as the control for cDNA quantity and quality. Serial dilutions of a validated positive control RNA with known t(9;22) BCR-ABL1 are used as reference for quantification of BCR-ABL1 relative to ABL1. The numeric BCR-ABL1 level is reported as % BCR-ABL1/ABL1 and thedetection sensitivity is 4.5 log below the standard baseline(<0.0032%).This test was developed and its performance characteristics determined by [facility]. It has not been cleared or approved by the Food and Drug Administration. TESTING PERFORMED AT [facility]. ORIGINAL REPORT ON FILE IN LAB CONTAINS ADDITIONAL TEST SITE INFORMATION. Platelets bldon 09-30-2022 Platelets (Bld) [#/Vol] 292 10*3/uL 150-450 [facility] Laboratory - Chemistry and C hemistry - challengeOrdered By: Shae Cota on 08-01-2022 Free T4 [Mass/Vol] 1.08 ng/dL 0.76-1.46 [facility] No Panel InformationOrdered By: Shae Cota on 08-01-2022 Free Triiodothyronine (T3) pg/dL 2.7 pg/mL 2.18-3.98 [facility] Thyroid Stimulating Hormone (TSH) 0.09 uIU/mL 0.358-3.74 [facility] Absolute lymphocyte countOrd ered By: Dr. Cota on 06-02-2022 Lymphocytes Auto (Unsp spec) [#/Vol] 1.36 10*3/uL 0.83-4.51 [facility] Basophil percentageOrdered B y: Dr. Cota on 06-02-2022 Basophils/100 WBC (Bld) 0.8 % 0-1 [facility] Bilirubin [Mass/Vol] 0.40 mg/dL 0.20-1.00 [facility] Comment on above: For patients on eltr ombopag therapy, use of Dim[place] TBIL is not recommended. Chloride [Moles/Vol] 99 mmol/L 98-107 [facility] Eosinophils/100 WBC (Bld) 3.5 % 0-5 [facility] Glucose [Mass/Vol] 103 mg/dL 74-106 [facility] Comment on above: Fasting Glucose resu lt from 100 to 125 mg/dL suggests IMPAIRED HOMEOSTASIS per A.D.A. criteria. Neutrophils (Bld) [#/Vol] 4.3 10*3/uL 2.0-7.7 [facility] Neutrophils/100 WBC (Bld) 64.7 % 47-70 [facility] Potassium [Moles/Vol] 3.7 mmol/L 3.5-5.1 [facility] Protein [Mass/Vol] 7.6 g/dL 6.4-8.2 [facility] Sodium [Moles/Vol] 135 mmol/L 136-145 [facility] WBC (Bld) [#/Vol] 6.7 10*3/uL 4.4-11.0 [facility] Blood erythrocytes count (nu mber/volume)Ordered By: Dr. Cota on 06-02-2022 RBC (Bld) [#/Vol] 4.80 10*6/uL 4.2-5.4 [facility] Blood hemoglobin measurement (mass/volume)Ordered By: Dr. Cota on 06-02-2022 Hemoglobin (Bld) [Mass/Vol] 13.4 g/dL 12.0-15.0 [facility] Blood lymphocytes/100 leukoc ytesOrdered By: Dr. Cota on 06-02-2022 Lymphocytes/100 WBC (Bld) 20.5 % 19-41 [facility] Blood monocytes/100 leukocyt esOrdered By: Dr. Cota on 06-02-2022 Monocytes/100 WBC (Bld) 10.2 % 0-10 [facility] Blood platelet mean volumeOr dered By: Dr. Cota on 06-02-2022 Platelet mean volume (Bld) [Entitic vol] 10.7 fL 6.2-12.0 [facility] Determination of erythrocyte mean corpuscular volume (MCV)Ordered By: Dr. Cota on 06-02-2022 MCV (RBC) [Entitic vol] 87.7 fL 81-99 [facility] Hematocrit Auto (Bld) [Volum e fraction]Ordered By: Dr. Cota on 06-02-2022 Hematocrit (Bld) [Volume fraction] 42.1 % 37-47 [facility] Laboratory - Chemistry and C hemistry - challengeOrdered By: Dr. Cota on 06-02-2022 ALP [Catalytic activity/Vol] 102 U/L 45-117 [facility] ALT [Catalytic activity/Vol] 23 U/L 13-56 [facility] CO2 [Moles/Vol] 30.0 mmol/L 21.0-32.0 [facility] Free T4 [Mass/Vol] 1.11 ng/dL 0.76-1.46 [facility] Globulin (S) [Mass/Vol] 3.5 g/dL 2.2-4.2 [facility] Urea nitrogen/Creatinine [Mass ratio] 21.4 mg/mg 10-20 [facility] Laboratory - Hematology and Cell countsOrdered By: Dr. Cota on 06-02-2022 Erythrocyte distribution width (RBC) [Entitic vol] 42.0 fL 35.1-43.9 [facility] Erythrocyte distribution width (RBC) [Ratio] 13.0 % 11.6-14.6 [facility] Immature granulocytes/100 WBC (Bld) 0.300 % 0.0-0.9 [facility] Comment on above: IG% - Immature Granu locytes (promyelocytes, myelocytes and metamyelocytes) > 1% indicates that a LEFT SHIFT is Present. MCH (RBC) [Entitic mass] 27.9 pg 27.0-32.0 [facility] Nucleated RBC/100 WBC (Bld) [Ratio] 0 % 0-5 [facility] MCHC Auto (RBC) [Mass/Vol]Or dered By: Dr. Cota on 06-02-2022 MCHC (RBC) [Mass/Vol] 31.8 g/dL 32-36 [facility] No Panel InformationOrdered By: Dr. Cota on 06-02-2022 Miscellaneous Test See comment [facility] Comment on above: TEST RESULTS LIMITSB CR-ABL1, CML/ALL, PCR, [id number] (b2a2) transcript % <0.0032 %e14a2 (b3a2) transcript % <0.0032 %e1a2 transcript % <0.0032 %Interpretation: Negative NEGATIVE for the BCR-ABL1 e1a2 (p190), e13a2 (b2a2, p210) and e14a2 (b3a2, p210) fusion transcripts. These results do not rule out the presence of rare BCR-ABL1 transcripts not detected by this assay.Director Kerry Hebert, PhD, FACMGDirector, Molecular OncologyLabco Center for Molecular Biology and [place], [place] [phone] assay can detect three different types of BCR-ABL1 fusion transcripts associated with CML, ALL, and AML: e13a2 (previously b2a2) and e14a2 (previously b3a2) (major breakpoint, p210), as well as e1a2 (minor breakpoint, p190). The e13a2 and e14a2 transcript values are titrated to the current International Scale (IS). The standardized baseline is 100% BCR-ABL1 (IS) and major molecular response (MMR) is equivalent to 0.1% BCR-ABL1 (IS) corresponding to a 3-log reduction. Results should be correlated with appropriateclinical and laboratory information as indicated.Methodology Total RNA is isolated from the sample and subject to a real-time, reverse transcriptase polymerase chain reaction (RT-PCR). The PCR primers and probes are specific for BCR-ABL1 e13a2, e14a2 and e1a2 fusion transcripts. The ABL1 transcript is amplified as the control for cDNA quantity and quality. Serial dilutions of a validated positive control RNA with known t(9;22) BCR-ABL1 are used as reference for quantification of BCR-ABL1 relative to ABL1. The numeric BCR-ABL1 level is reported as % BCR-ABL1/ABL1 and thedetection sensitivity is 4.5 log below the standard baseline(<0.0032%).This test was developed and its performance characteristics determined by [facility]. It has not been cleared or approved by the Food and Drug Administration. TESTING PERFORMED AT [facility]. ORIGINAL REPORT ON FILE IN LAB CONTAINS ADDITIONAL TEST SITE INFORMATION. Estimated GFR (MDRD) Amer 69 mL/min >60 [facility] Comment on above: GFR Calc Estimated GFR (MDRD) Non-Af Amer 57 mL/min >60 [facility] Comment on above: Non- GFR Calc Thyroid Stimulating Hormone (TSH) 0.05 uIU/mL 0.358-3.74 [facility] Platelets bldOrdered By: Dr. Cota on 06-02-2022 Platelets (Bld) [#/Vol] 314 10*3/uL 150-450 [facility] Serum or plasma albumin elroy urement (mass/volume)Ordered By: Dr. Cota on 06-02-2022 Albumin [Mass/Vol] 4.1 g/dL 3.2-5.0 [facility] Serum or plasma albumin/glob ulin mass ratioOrdered By: Dr. Cota on 06-02-2022 Albumin/Globulin [Mass ratio] 1.2 {ratio} 0.9-2.4 [facility] Serum or plasma calcium elroy urement (mass/volume)Ordered By: Dr. Cota on 06-02-2022 Calcium [Mass/Vol] 9.8 mg/dL 8.5-10.1 [facility] Serum or plasma creatinine m easurement (mass/volume)Ordered By: Dr. Cota on 06-02-2022 Creatinine [Mass/Vol] 1.03 mg/dL 0.55-1.02 [facility] Comment on above: The validity of the calculated GFR & GFRAA in patients over 70 years has not been determined. Clinical correlation is essential. Serum or plasma urea nitroge n measurement (mass/volume)Ordered By: Dr. Cota on 06-02-2022 Urea nitrogen [Mass/Vol] 22 mg/dL 7-18 [facility] Thin prep Papanicolaou smear with manual screeningOrdered By: Dr. Cota on 06-02-2022 Thin prep Papanicolaou smear with manual screening 19 U/L 15-37 [facility] Thin prep Papanicolaou smear with manual screening 6 5-15 [facility] Absolute lymphocyte counton 01-27-2022 Lymphocytes Auto (Unsp spec) [#/Vol] 1.41 10*3/uL 0.83-4.51 [facility] Work Phone: Basophil percentageon 2021 Basophils/100 WBC (Bld) 0.6 % 0-1 [facility] Work Phone: Bilirubin [Mass/Vol] 0.50 mg/dL 0.20-1.00 [facility] Work Phone: Comment on above: For patients on eltr ombopag therapy, use of [place] TBIL is not recommended. Chloride [Moles/Vol] 99 mmol/L 98-107 [facility] Work Phone: Eosinophils/100 WBC (Bld) 3.1 % 0-5 [facility] Work Phone: Glucose [Mass/Vol] 92 mg/dL 74-106 [facility] Work Phone: Neutrophils (Bld) [#/Vol] 3.9 10*3/uL 2.0-7.7 [facility] Work Phone: Neutrophils/100 WBC (Bld) 60.7 % 47-70 [facility] Work Phone: Potassium [Moles/Vol] 4.0 mmol/L 3.5-5.1 [facility] Work Phone: Protein [Mass/Vol] 7.2 g/dL 6.4-8.2 [facility] Work Phone: Sodium [Moles/Vol] 137 mmol/L 136-145 [facility] Work Phone: WBC (Bld) [#/Vol] 6.4 10*3/uL 4.4-11.0 [facility] Work Phone: Blood erythrocytes count (nu mber/volume)on 01-27-2022 RBC (Bld) [#/Vol] 4.50 10*6/uL 4.2-5.4 [facility] Work Phone: Blood hemoglobin measurement (mass/volume)on 01-27-2022 Hemoglobin (Bld) [Mass/Vol] 12.8 g/dL 12.0-15.0 [facility] Work Phone: Blood lymphocytes/100 leukoc yteson 01-27-2022 Lymphocytes/100 WBC (Bld) 22.1 % 19-41 [facility] Work Phone: Blood monocytes/100 leukocyt eson 01-27-2022 Monocytes/100 WBC (Bld) 12.7 % 0-10 [facility] Work Phone: Blood platelet mean volumeon 01-27-2022 Platelet mean volume (Bld) [Entitic vol] 10.6 fL 6.2-12.0 [facility] Work Phone: Determination of erythrocyte mean corpuscular volume (MCV)on 01-27-2022 MCV (RBC) [Entitic vol] 88.9 fL 81-99 [facility] Work Phone: Direct bilirubinon 2 Bilirubin.direct [Mass/Vol] 0.07 mg/dL 0.00-0.30 [facility] Work Phone: Hematocrit Auto (Bld) [Volum e fraction]on 01-27-2022 Hematocrit (Bld) [Volume fraction] 40.0 % 37-47 [facility] Work Phone: Laboratory - Chemistry and C hemistry - challengeon 01-27-2022 ALP [Catalytic activity/Vol] 102 U/L 45-117 [facility] Work Phone: ALT [Catalytic activity/Vol] 24 U/L 13-56 [facility] Work Phone: CO2 [Moles/Vol] 32.0 mmol/L 21.0-32.0 [facility] Work Phone: Free T4 [Mass/Vol] 1.08 ng/dL 0.76-1.46 [facility] Work Phone: Globulin (S) [Mass/Vol] 3.2 g/dL 2.2-4.2 [facility] Work Phone: Urea nitrogen/Creatinine [Mass ratio] 18.7 mg/mg 10-20 [facility] Work Phone: Laboratory - Hematology and Cell countson 01-27-2022 Erythrocyte distribution width (RBC) [Entitic vol] 42.4 fL 35.1-43.9 [facility] Work Phone: Erythrocyte distribution width (RBC) [Ratio] 13.0 % 11.6-14.6 [facility] Work Phone: Immature granulocytes/100 WBC (Bld) 0.800 % 0.0-0.9 [facility] Work Phone: Comment on above: IG% - Immature Granu locytes (promyelocytes, myelocytes and metamyelocytes) > 1% indicates that a LEFT SHIFT is Present. MCH (RBC) [Entitic mass] 28.4 pg 27.0-32.0 [facility] Work Phone: Nucleated RBC/100 WBC (Bld) [Ratio] 0 % 0-5 [facility] Work Phone: MCHC Auto (RBC) [Mass/Vol]on 01-27-2022 MCHC (RBC) [Mass/Vol] 32.0 g/dL 32-36 [facility] Work Phone: No Panel Informationon 01-27 Miscellaneous Test See comment [facility] Work Phone: Comment on above: TEST RESULT LIMITSBC R-ABL1, CML/ALL, PCR, Quant e13a2 (b2a2) transcript % <0.0032 % e14a2 (b3a2) transcript % <0.0032 % e1a2 transcript % <0.0032 %Interpretation: Negative NEGATIVE for the BCR-ABL1 e1a2 (p190), e13a2 (b2a2, p210) and e14a2 (b3a2, p210) fusion transcripts. These results do not rule out the presence of rare BCR-ABL1 transcripts not detected by this assay.Director Kerry Hebert, PhD, FACMGDirector, Molecular OncologyLabco [facility] for Molecular Biology [place], [place] [phone] assay can detect three different types of BCR-ABL1 fusion transcripts associated with CML, ALL, and AML: e13a2 (previously b2a2) and e14a2 (previously b3a2) (major breakpoint, p210), as well as e1a2 (minor breakpoint, p190). The e13a2 and e14a2 transcript values are titrated to the current International Scale (IS). The standardized baseline is 100% BCR-ABL1 (IS) and major molecular response (MMR) is equivalent to 0.1% BCR-ABL1 (IS) corresponding to a 3-log reduction. Results should be correlated with appropriate clinical and laboratory information as indicated.Methodology Total RNA is isolated from the sample and subject to a real-time, reverse transcriptase polymerase chain reaction (RT-PCR). The PCR primers and probes are specific for BCR-ABL1 e13a2, e14a2 and e1a2 fusion transcripts. The ABL1 transcript is amplified as the control for cDNA quantity and quality. Serial dilutions of a validated positive control RNA with known t(9;22) BCR-ABL1 are used as reference for quantification of BCR-ABL1 relative to ABL1. The numeric BCR-ABL1 level is reported as % BCR-ABL1/ABL1 and the detection sensitivity is 4.5 log below the standard baseline(<0.0032%).This test was developed and its performance characteristics determined by [facility]. It has not been cleared or approved by the Food and Drug Administration. TESTING PERFORMED AT [facility]. ORIGINAL REPORT ON FILE IN LAB CONTAINS ADDITIONAL TEST SITE INFORMATION. Estimated GFR (MDRD) Amer 80 mL/min >60 [facility] Work Phone: Comment on above: GFR Calc Estimated GFR (MDRD) Non-Af Amer 66 mL/min >60 [facility] Work Phone: Comment on above: Non- GFR Calc Thyroid Stimulating Hormone (TSH) 0.04 uIU/mL 0.358-3.74 [facility] Work Phone: Urine Microalbumin/Creatinin e Ratio TNP [facility] Work Phone: Comment on above: Test not performed Vitamin D 25-Hydroxy 62.9 ng/mL [facility] Work Phone: Comment on above: Vitamin D 25(OH) Sta tus Range Deficiency <20 ng/mL (50nmol/L) Insufficiency 20 - 30 ng/mL (50 - 75 nmol/L) Sufficiency 30 - 100 ng/mL (75 - 250 nmol/L) Toxicity >100 ng/mL (>250 nmol/L) Platelets bldon 01-27-2022 Platelets (Bld) [#/Vol] 282 10*3/uL 150-450 [facility] Work Phone: Serum or plasma albumin elroy urement (mass/volume)on 01-27-2022 Albumin [Mass/Vol] 4.0 g/dL 3.2-5.0 [facility] Work Phone: Serum or plasma albumin/glob ulin mass ratioon 01-27-2022 Albumin/Globulin [Mass ratio] 1.2 {ratio} 0.9-2.4 [facility] Work Phone: Serum or plasma calcium elroy urement (mass/volume)on 01-27-2022 Calcium [Mass/Vol] 9.7 mg/dL 8.5-10.1 [facility] Work Phone: Serum or plasma creatinine m easurement (mass/volume)on 01-27-2022 Creatinine [Mass/Vol] 0.91 mg/dL 0.55-1.02 [facility] Work Phone: Comment on above: The validity of the calculated GFR & GFRAA in patients over 70 years has not been determined. Clinical correlation is essential. Serum or plasma urea nitroge n measurement (mass/volume)on 01-27-2022 Urea nitrogen [Mass/Vol] 17 mg/dL 7-18 [facility] Work Phone: Thin prep Papanicolaou smear with manual screeningon 01-27-2022 Thin prep Papanicolaou smear with manual screening 21 U/L 15-37 [facility] Work Phone: Thin prep Papanicolaou smear with manual screening 6 5-15 [facility] Work Phone: Thin prep Papanicolaou smear with manual screening < 5.0 mg/L NO RANGE EST. [facility] Work Phone: Urine creatinine measurement (mass/volume)on 01-27-2022 Creatinine (U) [Mass/Vol] mg/dL NO RANGE EST. [facility] Work Phone: Absolute lymphocyte counton 10-05-2021 Lymphocytes Auto (Unsp spec) [#/Vol] 1.11 10*3/uL 0.83-4.51 [facility] Work Phone: Basophil percentageon 2021 Basophils/100 WBC (Bld) 0.7 % 0-1 [facility] Work Phone: Bilirubin [Mass/Vol] 0.40 mg/dL 0.20-1.00 [facility] Work Phone: Comment on above: For patients on eltr ombopag therapy, use of [place] TBIL is not recommended. Chloride [Moles/Vol] 99 mmol/L 98-107 [facility] Work Phone: Eosinophils/100 WBC (Bld) 3.0 % 0-5 [facility] Work Phone: Glucose [Mass/Vol] 109 mg/dL 74-106 [facility] Work Phone: Comment on above: Fasting Glucose resu lt from 100 to 125 mg/dL suggests IMPAIRED HOMEOSTASIS per A.D.A. criteria. Neutrophils (Bld) [#/Vol] 3.9 10*3/uL 2.0-7.7 [facility] Work Phone: Neutrophils/100 WBC (Bld) 64.4 % 47-70 [facility] Work Phone: Potassium [Moles/Vol] 4.0 mmol/L 3.5-5.1 [facility] Work Phone: Protein [Mass/Vol] 7.7 g/dL 6.4-8.2 [facility] Work Phone: Sodium [Moles/Vol] 136 mmol/L 136-145 [facility] Work Phone: WBC (Bld) [#/Vol] 6.1 10*3/uL 4.4-11.0 [facility] Work Phone: Blood erythrocytes count (nu mber/volume)on 10-05-2021 RBC (Bld) [#/Vol] 4.49 10*6/uL 4.2-5.4 [facility] Work Phone: Blood hemoglobin measurement (mass/volume)on 10-05-2021 Hemoglobin (Bld) [Mass/Vol] 13.1 g/dL 12.0-15.0 [facility] Work Phone: Blood lymphocytes/100 leukoc yteson 10-05-2021 Lymphocytes/100 WBC (Bld) 18.3 % 19-41 [facility] Work Phone: Blood monocytes/100 leukocyt eson 10-05-2021 Monocytes/100 WBC (Bld) 13.1 % 0-10 [facility] Work Phone: Blood platelet mean volumeon 10-05-2021 Platelet mean volume (Bld) [Entitic vol] 10.0 fL 6.2-12.0 [facility] Work Phone: Determination of erythrocyte mean corpuscular volume (MCV)on 10-05-2021 MCV (RBC) [Entitic vol] 86.9 fL 81-99 [facility] Work Phone: Direct bilirubinon 2 Bilirubin.direct [Mass/Vol] 0.11 mg/dL 0.00-0.30 [facility] Work Phone: Hematocrit Auto (Bld) [Volum e fraction]on 10-05-2021 Hematocrit (Bld) [Volume fraction] 39.0 % 37-47 [facility] Work Phone: Laboratory - Chemistry and C hemistry - challengeon 10-05-2021 Free T4 [Mass/Vol] 1.02 ng/dL 0.76-1.46 [facility] Work Phone: T4 [Mass/Vol] 11.5 ug/dL 4.8-13.9 [facility] Work Phone: ALP [Catalytic activity/Vol] 105 U/L 45-117 [facility] Work Phone: ALT [Catalytic activity/Vol] 22 U/L 13-56 [facility] Work Phone: CO2 [Moles/Vol] 32.0 mmol/L 21.0-32.0 [facility] Work Phone: Globulin (S) [Mass/Vol] 3.9 g/dL 2.2-4.2 [facility] Work Phone: Urea nitrogen/Creatinine [Mass ratio] 21.0 mg/mg 10-20 [facility] Work Phone: Laboratory - Hematology and Cell countson 10-05-2021 Erythrocyte distribution width (RBC) [Entitic vol] 43.1 fL 35.1-43.9 [facility] Work Phone: Erythrocyte distribution width (RBC) [Ratio] 13.5 % 11.6-14.6 [facility] Work Phone: Immature granulocytes/100 WBC (Bld) 0.500 % 0.0-0.9 [facility] Work Phone: Comment on above: IG% - Immature Granu locytes (promyelocytes, myelocytes and metamyelocytes) > 1% indicates that a LEFT SHIFT is Present. MCH (RBC) [Entitic mass] 29.2 pg 27.0-32.0 [facility] Work Phone: Nucleated RBC/100 WBC (Bld) [Ratio] 0 % 0-5 [facility] Work Phone: MCHC Auto (RBC) [Mass/Vol]on 10-05-2021 MCHC (RBC) [Mass/Vol] 33.6 g/dL 32-36 [facility] Work Phone: No Panel Informationon 10-05 Free Triiodothyronine (T3) pg/dL 2.6 pg/mL 2.18-3.98 [facility] Work Phone: Estimated GFR (MDRD) Amer 68 mL/min >60 [facility] Work Phone: Comment on above: GFR Calc Estimated GFR (MDRD) Non-Af Amer 56 mL/min >60 [facility] Work Phone: Comment on above: Non- GFR Calc Miscellaneous Test See comment [facility] Work Phone: Comment on above: TEST RESULT LIMITSBC R-ABL1, CML/ALL, PCR, [id number] (b2a2) transcript % <0.0032 %e14a2 (b3a2) transcript % <0.0032 %e1a2 transcript % <0.0032 %Interpretation: NegativeNEGATIVE for the BCR-ABL1 e1a2 (p190), e13a2 (b2a2, p210) and e14a2 (b3a2, p210) fusion transcripts. These results do not rule out the presence of rare BCR-ABL1 transcripts not detected by this assay.Director Kerry Hebert, PhD, FACMGDirector, Molecular OncologyLabcorp [facility] for Molecular Biology and [place], [place] [phone] assay can detect three different types of BCR-ABL1 fusion transcripts associated with CML, ALL, and AML: e13a2 (previously b2a2) and e14a2 (previously b3a2) (major breakpoint, p210), as well as e1a2 (minor breakpoint, p190). The e13a2 and e14a2 transcript values are titrated to the current International Scale (IS). The standardized baseline is 100% BCR-ABL1 (IS) and major molecular response (MMR) is equivalent to 0.1% BCR-ABL1 (IS) correspondingto a 3-log reduction. Results should be correlated with appropriate clinical and laboratory information as indicated.Methodology Total RNA is isolated from the sample and subject to a real-time, reverse transcriptase polymerase chain reaction (RT-PCR). The PCR primers and probes are specific for BCR-ABL1 e13a2, e14a2 and e1a2 fusion transcripts. The ABL1 transcript is amplified as the control for cDNA quantity and quality. Serial dilutions of a validated positive control RNA with known t(9;22) BCR-ABL1 are used as reference for quantification of BCR-ABL1 relative to ABL1. The numeric BCR-ABL1 level is reported as % BCR-ABL1/ABL1 and thedetection sensitivity is 4.5 log below the standard baseline(<0.0032%).This test was developed and its performance characteristics determined by [facility]. It has not been cleared or approved by the Food and Drug Administration. TESTING PERFORMED AT [facility]. ORIGINAL REPORT ON FILE IN LAB CONTAINS ADDITIONAL TEST SITE INFORMATION. Platelets bldon 10-05-2021 Platelets (Bld) [#/Vol] 296 10*3/uL 150-450 [facility] Work Phone: Serum or plasma albumin elroy urement (mass/volume)on 10-05-2021 Albumin [Mass/Vol] 3.8 g/dL 3.2-5.0 [facility] Work Phone: Serum or plasma calcium elroy urement (mass/volume)on 10-05-2021 Calcium [Mass/Vol] 10.0 mg/dL 8.5-10.1 [facility] Work Phone: Serum or plasma creatinine m easurement (mass/volume)on 10-05-2021 Creatinine [Mass/Vol] 1.05 mg/dL 0.55-1.02 [facility] Work Phone: Comment on above: The validity of the calculated GFR & GFRAA in patients over 70 years has not been determined. Clinical correlation is essential. Serum or plasma urea nitroge n measurement (mass/volume)on 10-05-2021 Urea nitrogen [Mass/Vol] 22 mg/dL 7-18 [facility] Work Phone: Thin prep Papanicolaou smear with manual screeningon 10-05-2021 Thin prep Papanicolaou smear with manual screening 24 U/L 15-37 [facility] Work Phone: Thin prep Papanicolaou smear with manual screening 5 5-15 [facility] Work Phone: Basophil percentageon 2021 Bilirubin [Mass/Vol] 0.40 mg/dL 0.20-1.00 [facility] Work Phone: Comment on above: For patients on eltr ombopag therapy, use of [place] TBIL is not recommended. Chloride [Moles/Vol] 101 mmol/L 98-107 [facility] Work Phone: Glucose [Mass/Vol] 95 mg/dL 74-106 [facility] Work Phone: Potassium [Moles/Vol] 4.3 mmol/L 3.5-5.1 [facility] Work Phone: Protein [Mass/Vol] 8.1 g/dL 6.4-8.2 [facility] Work Phone: Sodium [Moles/Vol] 137 mmol/L 136-145 [facility] Work Phone: Laboratory - Chemistry and C hemistry - challengeon 07-19-2021 ALP [Catalytic activity/Vol] 104 U/L 45-117 [facility] Work Phone: ALT [Catalytic activity/Vol] 20 U/L 13-56 [facility] Work Phone: CO2 [Moles/Vol] 30.0 mmol/L 21.0-32.0 [facility] Work Phone: Free T4 [Mass/Vol] 1.31 ng/dL 0.76-1.46 [facility] Work Phone: Globulin (S) [Mass/Vol] 4.0 g/dL 2.2-4.2 [facility] Work Phone: Urea nitrogen/Creatinine [Mass ratio] 19.8 mg/mg 10-20 [facility] Work Phone: Laboratory - Drug toxicology on 07-19-2021 Amphetamines Ql (U) Negative <1000 ng/mL [facility] Work Phone: Benzodiazepines Ql (U) Negative < 200 ng/mL [facility] Work Phone: Cannabinoids Screen Ql (U) Negative < 50 ng/mL [facility] Work Phone: Cocaine Ql (U) Negative < 300 ng/mL [facility] Work Phone: Opiates Ql (U) Negative < 300 ng/mL [facility] Work Phone: No Panel Informationon 07-19 Estimated GFR (MDRD) Amer 64 mL/min >60 [facility] Work Phone: Comment on above: GFR Calc Estimated GFR (MDRD) Non-Af Amer 53 mL/min >60 [facility] Work Phone: Comment on above: Non- GFR Calc Free Triiodothyronine (T3) pg/dL 3.3 pg/mL 2.18-3.98 [facility] Work Phone: MDMA (Ecstasy) Screen Negative < 500 ng/mL [facility] Work Phone: Thyroid Stimulating Hormone (TSH) 0.01 uIU/mL 0.358-3.74 [facility] Work Phone: Urine Barbiturates Screen Negative < 200 ng/mL [facility] Work Phone: Urine Drug Screen Comment [facility] Work Phone: Comment on above: CONFIRMATORY TESTING FOR ALL POSITIVE URINE DRUG SCREENRESULTS WILL ONLY BE SENT OUT UPON PHYSICIAN ORDER. VISTA Urine Drug Screen methods provide only preliminaryanalytical test results. A more specific alternate chemicalmethod must be used in order to obtain a confirmedanalytical result. Gas chromatography/mass spectrometery(GC/MS) is the preferred confirmatory method. Clinicalconsideration and professional judgement should be appliedto any drug of abuse test result, particularly whenpreliminary positive results are used. URINE TCA TESTING MUST BE ORDERED SEPARATELY. USE TESTMNEMONIC: [facility] Urine Methadone Screen Negative < 300 ng/mL [facility] Work Phone: Urine Microalbumin/Creatinin e Ratio 15.4 mg/g CRE <30 [facility] Work Phone: Serum or plasma albumin elroy urement (mass/volume)on 07-19-2021 Albumin [Mass/Vol] 4.1 g/dL 3.2-5.0 [facility] Work Phone: Serum or plasma albumin/glob ulin mass ratioon 07-19-2021 Albumin/Globulin [Mass ratio] 1.0 {ratio} 0.9-2.4 [facility] Work Phone: Serum or plasma calcium elroy urement (mass/volume)on 07-19-2021 Calcium [Mass/Vol] 10.7 mg/dL 8.5-10.1 [facility] Work Phone: Serum or plasma creatinine m easurement (mass/volume)on 07-19-2021 Creatinine [Mass/Vol] 1.11 mg/dL 0.55-1.02 [facility] Work Phone: Comment on above: The validity of the calculated GFR & GFRAA in patients over 70 years has not been determined. Clinical correlation is essential. Serum or plasma urea nitroge n measurement (mass/volume)on 07-19-2021 Urea nitrogen [Mass/Vol] 22 mg/dL 7-18 [facility] Work Phone: Thin prep Papanicolaou smear with manual screeningon 07-19-2021 Thin prep Papanicolaou smear with manual screening 19 U/L 15-37 [facility] Work Phone: Thin prep Papanicolaou smear with manual screening 6 5-15 [facility] Work Phone: Thin prep Papanicolaou smear with manual screening 5.8 mg/L NO RANGE EST. [facility] Work Phone: Urine creatinine measurement (mass/volume)on 07-19-2021 Creatinine (U) [Mass/Vol] 37.80 mg/dL NO RANGE EST. [facility] Work Phone: Urine phencyclidine (PCP) de tectionon 07-19-2021 Phencyclidine Ql (U) Negative < 25 ng/mL [facility] Work Phone: Whole blood hemoglobin A1c/t otal hemoglobin ratio (mass fraction)on 07-19-2021 HbA1c (Bld) [Mass fraction] 5.8 % 3.8-5.6 [facility] Work Phone: Comment on above: Normal < 5.7 % Predi abetic 5.7 - 6.4 % Diabetic >or= 6.5 % Please note range changes. Absolute lymphocyte counton 06-23-2021 Lymphocytes Auto (Unsp spec) [#/Vol] 1.23 10*3/uL 0.83-4.51 [facility] Work Phone: Basophil percentageon 2021 Basophils/100 WBC (Bld) 0.8 % 0-1 [facility] Work Phone: Bilirubin [Mass/Vol] 0.40 mg/dL 0.20-1.00 [facility] Work Phone: Comment on above: For patients on eltr ombopag therapy, use of [place] TBIL is not recommended. Chloride [Moles/Vol] 95 mmol/L 98-107 [facility] Work Phone: Eosinophils/100 WBC (Bld) 2.3 % 0-5 [facility] Work Phone: Glucose [Mass/Vol] 108 mg/dL 74-106 [facility] Work Phone: Comment on above: Fasting Glucose resu lt from 100 to 125 mg/dL suggests IMPAIRED HOMEOSTASIS per A.D.A. criteria. Neutrophils (Bld) [#/Vol] 4.3 10*3/uL 2.0-7.7 [facility] Work Phone: Neutrophils/100 WBC (Bld) 65.8 % 47-70 [facility] Work Phone: Potassium [Moles/Vol] 4.1 mmol/L 3.5-5.1 [facility] Work Phone: [phone] Protein [Mass/Vol] 7.8 g/dL 6.4-8.2 [facility] Work Phone: Sodium [Moles/Vol] 133 mmol/L 136-145 [facility] Work Phone: WBC (Bld) [#/Vol] 6.5 10*3/uL 4.4-11.0 [facility] Work Phone: Blood erythrocytes count (nu mber/volume)on 06-23-2021 RBC (Bld) [#/Vol] 4.44 10*6/uL 4.2-5.4 [facility] Work Phone: Blood hemoglobin measurement (mass/volume)on 06-23-2021 Hemoglobin (Bld) [Mass/Vol] 12.6 g/dL 12.0-15.0 [facility] Work Phone: Blood lymphocytes/100 leukoc yteson 06-23-2021 Lymphocytes/100 WBC (Bld) 19.0 % 19-41 [facility] Work Phone: Blood monocytes/100 leukocyt eson 06-23-2021 Monocytes/100 WBC (Bld) 11.9 % 0-10 [facility] Work Phone: Blood platelet mean volumeon 06-23-2021 Platelet mean volume (Bld) [Entitic vol] 11.3 fL 6.2-12.0 [facility] Work Phone: Determination of erythrocyte mean corpuscular volume (MCV)on 06-23-2021 MCV (RBC) [Entitic vol] 86.3 fL 81-99 [facility] Work Phone: [phone] Direct bilirubinon 2 Bilirubin.direct [Mass/Vol] 0.10 mg/dL 0.00-0.30 [facility] Work Phone: Hematocrit Auto (Bld) [Volum e fraction]on 06-23-2021 Hematocrit (Bld) [Volume fraction] 38.3 % 37-47 [facility] Work Phone: Laboratory - Chemistry and C hemistry - challengeon 06-23-2021 ALP [Catalytic activity/Vol] 91 U/L 45-117 [facility] Work Phone: ALT [Catalytic activity/Vol] 22 U/L 13-56 [facility] Work Phone: CO2 [Moles/Vol] 31.0 mmol/L 21.0-32.0 [facility] Work Phone: Globulin (S) [Mass/Vol] 3.5 g/dL 2.2-4.2 [facility] Work Phone: Urea nitrogen/Creatinine [Mass ratio] 21.8 mg/mg 10-20 [facility] Work Phone: [phone] Laboratory - Hematology and Cell countson 06-23-2021 Erythrocyte distribution width (RBC) [Entitic vol] 41.7 fL 35.1-43.9 [facility] Work Phone: Erythrocyte distribution width (RBC) [Ratio] 13.2 % 11.6-14.6 [facility] Work Phone: Immature granulocytes/100 WBC (Bld) 0.200 % 0.0-0.9 [facility] Work Phone: Comment on above: IG% - Immature Granu locytes (promyelocytes, myelocytes and metamyelocytes) > 1% indicates that a LEFT SHIFT is Present. MCH (RBC) [Entitic mass] 28.4 pg 27.0-32.0 [facility] Work Phone: Nucleated RBC/100 WBC (Bld) [Ratio] 0 % 0-5 [facility] Work Phone: MCHC Auto (RBC) [Mass/Vol]on 06-23-2021 MCHC (RBC) [Mass/Vol] 32.9 g/dL 32-36 [facility] Work Phone: No Panel Informationon 06-23 Estimated GFR (MDRD) Amer 59 mL/min >60 [facility] Work Phone: Comment on above: GFR Calc Estimated GFR (MDRD) Non-Af Amer 49 mL/min >60 [facility] Work Phone: Comment on above: Non- GFR Calc Miscellaneous Test See comment [facility] Work Phone: Comment on above: TEST RESULT LIMITSBC R-ABL1, CML/ALL, PCR, [id number] (b2a2) transcript % <0.0032 %e14a2 (b3a2) transcript % <0.0032 %e1a2 transcript % <0.0032 %Interpretation: NegativeNEGATIVE for the BCR-ABL1 e1a2 (p190), e13a2 (b2a2, p210) and e14a2 (b3a2, p210) fusion transcripts. These results do not rule out the presence of rare BCR-ABL1 transcripts not detected by this assay.Director Review Duane Hebert, PhD, [facility] Director, Molecular Oncology [facility] [place] [address] BackgroundThis assay can detect three different types of BCR-ABL1 fusion transcripts associated with CML, ALL, and AML: e13a2 (previously b2a2) and e14a2 (previously b3a2) (major breakpoint, p210), as well as e1a2 (minor breakpoint, p190). The e13a2 and e14a2 transcript values are titrated to the current International Scale (IS). The standardized baseline is 100% BCR-ABL1 (IS) and major molecular response (MMR) is equivalent to 0.1% BCR-ABL1 (IS) correspondingto a 3-log reduction. Results should be correlated with appropriate clinical and laboratory information as indicated.Methodology Total RNA is isolated from the sample and subject to a real-time, reverse transcriptase polymerase chain reaction (RT-PCR). The PCR primers and probes are specific for BCR-ABL1 e13a2, e14a2 and e1a2 fusion transcripts. The ABL1 transcript is amplified as the control for cDNA quantity and quality. Serial dilutions of a validated positive control RNA with known t(9;22) BCR-ABL1 are used as reference for quantification of BCR-ABL1 relative to ABL1. The numeric BCR-ABL1 level is reported as % BCR-ABL1/ABL1 and thedetection sensitivity is 4.5 log below the standard baseline(<0.0032%).This test was developed and its performance characteristics determined by [employer]. It has not been cleared or approved by the Food and Drug Administration. TESTING PERFORMED AT [facility]. ORIGINAL REPORT ON FILE IN LAB CONTAINS ADDITIONAL TEST SITE INFORMATION. Platelets bldon 06-23-2021 Platelets (Bld) [#/Vol] 293 10*3/uL 150-450 [facility] Work Phone: Serum or plasma albumin elroy urement (mass/volume)on 06-23-2021 Albumin [Mass/Vol] 4.3 g/dL 3.2-5.0 [facility] Work Phone: Serum or plasma calcium elroy urement (mass/volume)on 06-23-2021 Calcium [Mass/Vol] 10.0 mg/dL 8.5-10.1 [facility] Work Phone: Serum or plasma creatinine m easurement (mass/volume)on 06-23-2021 Creatinine [Mass/Vol] 1.19 mg/dL 0.55-1.02 [facility] Work Phone: Comment on above: The validity of the calculated GFR & GFRAA in patients over 70 years has not been determined. Clinical correlation is essential. Serum or plasma urea nitroge n measurement (mass/volume)on 06-23-2021 Urea nitrogen [Mass/Vol] 26 mg/dL 7-18 [facility] Work Phone: Thin prep Papanicolaou smear with manual screeningon 06-23-2021 Thin prep Papanicolaou smear with manual screening 22 U/L 15-37 [facility] Work Phone: Thin prep Papanicolaou smear with manual screening 7 5-15 [facility] Work Phone: Basophil percentageon 2021 Bilirubin [Mass/Vol] 0.40 mg/dL 0.20-1.00 [facility] Work Phone: Comment on above: For patients on eltr ombopag therapy, use of [place] TBIL is not recommended. Chloride [Moles/Vol] 95 mmol/L 98-107 [facility] Work Phone: Glucose [Mass/Vol] 82 mg/dL 74-106 [facility] Work Phone: Potassium [Moles/Vol] 3.9 mmol/L 3.5-5.1 [facility] Work Phone: Protein [Mass/Vol] 7.9 g/dL 6.4-8.2 [facility] Work Phone: Sodium [Moles/Vol] 134 mmol/L 136-145 [facility] Work Phone: WBC (Bld) [#/Vol] 4.9 10*3/uL 4.4-11.0 [facility] Work Phone: Blood erythrocytes count (nu mber/volume)on 04-27-2021 RBC (Bld) [#/Vol] 4.38 10*6/uL 4.2-5.4 [facility] Work Phone: Blood hemoglobin measurement (mass/volume)on 04-27-2021 Hemoglobin (Bld) [Mass/Vol] 12.8 g/dL 12.0-15.0 [facility] Work Phone: Blood platelet mean volumeon 04-27-2021 Platelet mean volume (Bld) [Entitic vol] 10.4 fL 6.2-12.0 [facility] Work Phone: Determination of erythrocyte mean corpuscular volume (MCV)on 04-27-2021 MCV (RBC) [Entitic vol] 88.8 fL 81-99 [facility] Work Phone: Hematocrit Auto (Bld) [Volum e fraction]on 04-27-2021 Hematocrit (Bld) [Volume fraction] 38.9 % 37-47 [facility] Work Phone: Laboratory - Chemistry and C hemistry - challengeon 04-27-2021 ALP [Catalytic activity/Vol] 98 U/L 45-117 [facility] Work Phone: ALT [Catalytic activity/Vol] 22 U/L 13-56 [facility] Work Phone: CO2 [Moles/Vol] 32.0 mmol/L 21.0-32.0 [facility] Work Phone: Globulin (S) [Mass/Vol] 3.9 g/dL 2.2-4.2 [facility] Work Phone: Urea nitrogen/Creatinine [Mass ratio] 16.0 mg/mg 10-20 [facility] Work Phone: Laboratory - Hematology and Cell countson 04-27-2021 Erythrocyte distribution width (RBC) [Entitic vol] 44.8 fL 35.1-43.9 [facility] Work Phone: Erythrocyte distribution width (RBC) [Ratio] 13.8 % 11.6-14.6 [facility] Work Phone: MCH (RBC) [Entitic mass] 29.2 pg 27.0-32.0 [facility] Work Phone: MCHC Auto (RBC) [Mass/Vol]on 04-27-2021 MCHC (RBC) [Mass/Vol] 32.9 g/dL 32-36 [facility] Work Phone: No Panel Informationon 04-27 Estimated GFR (MDRD) Amer 67 mL/min >60 [facility] Work Phone: Comment on above: GFR Calc Estimated GFR (MDRD) Non-Af Amer 56 mL/min >60 [facility] Work Phone: Comment on above: Non- GFR Calc Platelets bldon 04-27-2021 Platelets (Bld) [#/Vol] 364 10*3/uL 150-450 [facility] Work Phone: Serum or plasma albumin elroy urement (mass/volume)on 04-27-2021 Albumin [Mass/Vol] 4.0 g/dL 3.2-5.0 [facility] Work Phone: Serum or plasma albumin/glob ulin mass ratioon 04-27-2021 Albumin/Globulin [Mass ratio] 1.0 {ratio} 0.9-2.4 [facility] Work Phone: Serum or plasma calcium elroy urement (mass/volume)on 04-27-2021 Calcium [Mass/Vol] 9.8 mg/dL 8.5-10.1 [facility] Work Phone: Serum or plasma creatinine m easurement (mass/volume)on 04-27-2021 Creatinine [Mass/Vol] 1.06 mg/dL 0.55-1.02 [facility] Work Phone: Comment on above: The validity of the calculated GFR & GFRAA in patients over 70 years has not been determined. Clinical correlation is essential. Serum or plasma urea nitroge n measurement (mass/volume)on 04-27-2021 Urea nitrogen [Mass/Vol] 17 mg/dL 7-18 [facility] Work Phone: Thin prep Papanicolaou smear with manual screeningon 04-27-2021 Thin prep Papanicolaou smear with manual screening 20 U/L 15-37 [facility] Work Phone: Thin prep Papanicolaou smear with manual screening 7 5-15 [facility] Work Phone: Absolute lymphocyte counton 03-17-2021 Lymphocytes Auto (Unsp spec) [#/Vol] 1.48 10*3/uL 0.83-4.51 [facility] Work Phone: Basophil percentageon 2021 Basophils/100 WBC (Bld) 0.8 % 0-1 [facility] Work Phone: Bilirubin [Mass/Vol] 0.40 mg/dL 0.20-1.00 [facility] Work Phone: Comment on above: For patients on eltr ombopag therapy, use of [place] TBIL is not recommended. Chloride [Moles/Vol] 99 mmol/L 98-107 [facility] Work Phone: [phone] Eosinophils/100 WBC (Bld) 4.6 % 0-5 [facility] Work Phone: Glucose [Mass/Vol] 112 mg/dL 74-106 [facility] Work Phone: Comment on above: Fasting Glucose resu lt from 100 to 125 mg/dL suggests IMPAIRED HOMEOSTASIS per A.D.A. criteria. Neutrophils (Bld) [#/Vol] 2.7 10*3/uL 2.0-7.7 [facility] Work Phone: Neutrophils/100 WBC (Bld) 51.2 % 47-70 [facility] Work Phone: Potassium [Moles/Vol] 4.0 mmol/L 3.5-5.1 [facility] Work Phone: Protein [Mass/Vol] 8.0 g/dL 6.4-8.2 [facility] Work Phone: Sodium [Moles/Vol] 137 mmol/L 136-145 [facility] Work Phone: WBC (Bld) [#/Vol] 5.2 10*3/uL 4.4-11.0 [facility] Work Phone: Blood erythrocytes count (nu mber/volume)on 03-17-2021 RBC (Bld) [#/Vol] 4.37 10*6/uL 4.2-5.4 [facility] Work Phone: Blood hemoglobin measurement (mass/volume)on 03-17-2021 Hemoglobin (Bld) [Mass/Vol] 12.5 g/dL 12.0-15.0 [facility] Work Phone: Blood lymphocytes/100 leukoc yteson 03-17-2021 Lymphocytes/100 WBC (Bld) 28.3 % 19-41 [facility] Work Phone: Blood monocytes/100 leukocyt eson 03-17-2021 Monocytes/100 WBC (Bld) 14.7 % 0-10 [facility] Work Phone: Blood platelet mean volumeon 03-17-2021 Platelet mean volume (Bld) [Entitic vol] 9.7 fL 6.2-12.0 [facility] Work Phone: Determination of erythrocyte mean corpuscular volume (MCV)on 03-17-2021 MCV (RBC) [Entitic vol] 90.2 fL 81-99 [facility] Work Phone: Direct bilirubinon 2 Bilirubin.direct [Mass/Vol] 0.08 mg/dL 0.00-0.30 [facility] Work Phone: Hematocrit Auto (Bld) [Volum e fraction]on 03-17-2021 Hematocrit (Bld) [Volume fraction] 39.4 % 37-47 [facility] Work Phone: Laboratory - Chemistry and C hemistry - challengeon 03-17-2021 ALP [Catalytic activity/Vol] 86 U/L 45-117 [facility] Work Phone: ALT [Catalytic activity/Vol] 29 U/L 13-56 [facility] Work Phone: CO2 [Moles/Vol] 33.0 mmol/L 21.0-32.0 [facility] Work Phone: Globulin (S) [Mass/Vol] 3.9 g/dL 2.2-4.2 [facility] Work Phone: Urea nitrogen/Creatinine [Mass ratio] 14.6 mg/mg 10-20 [facility] Work Phone: Laboratory - Hematology and Cell countson 03-17-2021 Erythrocyte distribution width (RBC) [Entitic vol] 47.8 fL 35.1-43.9 [facility] Work Phone: Erythrocyte distribution width (RBC) [Ratio] 14.4 % 11.6-14.6 [facility] Work Phone: Immature granulocytes/100 WBC (Bld) 0.400 % 0.0-0.9 [facility] Work Phone: Comment on above: IG% - Immature Granu locytes (promyelocytes, myelocytes and metamyelocytes) > 1% indicates that a LEFT SHIFT is Present. MCH (RBC) [Entitic mass] 28.6 pg 27.0-32.0 [facility] Work Phone: Nucleated RBC/100 WBC (Bld) [Ratio] 0 % 0-5 [facility] Work Phone: MCHC Auto (RBC) [Mass/Vol]on 03-17-2021 MCHC (RBC) [Mass/Vol] 31.7 g/dL 32-36 [facility] Work Phone: No Panel Informationon 03-17 Estimated GFR (MDRD) Amer 53 mL/min >60 [facility] Work Phone: Comment on above: GFR Calc Estimated GFR (MDRD) Non-Af Amer 44 mL/min >60 [facility] Work Phone: Comment on above: Non- GFR Calc Miscellaneous Test See comment [facility] Work Phone: Comment on above: TEST RESULT LIMITSBC R-ABL1, CML/ALL, PCR, [id number] (b2a2) transcript % <0.0032 %e14a2 (b3a2) transcript % <0.0032 %e1a2 transcript % <0.0032 %Interpretation: NegativeNEGATIVE for the BCR-ABL1 e1a2 (p190), e13a2 (b2a2, p210) and e14a2 (b3a2, p210) fusion transcripts. These results do not rule out the presence of rare BCR-ABL1 transcripts not detected by this assay.Director Arpan Hebert, PhD, [facility] Director, Molecular Oncology [facility] [place] [address] BackgroundThis assay can detect three different types of BCR-ABL1 fusion transcripts associated with CML, ALL, and AML: e13a2 (previously b2a2) and e14a2 (previously b3a2) (major breakpoint, p210), as well as e1a2 (minor breakpoint, p190). The e13a2 and e14a2 transcript values are titrated to the current International Scale (IS). The standardized baseline is 100% BCR-ABL1 (IS) and major molecular response (MMR) is equivalent to 0.1% BCR-ABL1 (IS) corresponding to a 3-log reduction. Results should be correlated with appropriateclinical and laboratory information as indicated.Methodology Total RNA is isolated from the sample and subject to a real-time, reverse transcriptase polymerase chain reaction (RT-PCR). The PCR primers and probes are specific for BCR-ABL1 e13a2, e14a2 and e1a2 fusion transcripts. The ABL1 transcript is amplified as the control for cDNA quantity and quality. Serial dilutions of a validated positive control RNA with known t(9;22) BCR-ABL1 are used as reference for quantification of BCR-ABL1 relative to ABL1. Thenumeric BCR-ABL1 level is reported as % BCR-ABL1/ABL1 and the detection sensitivity is 4.5 log below the standard baseline (<0.0032%).This test was developed and its performance characteristics determined by [employer]. It has not been cleared or approved by the Food and Drug Administration. TESTING PERFORMED AT [facility]. ORIGINAL REPORT ON FILE IN LAB CONTAINS ADDITIONAL TEST SITE INFORMATION. Platelets bldon 03-17-2021 Platelets (Bld) [#/Vol] 326 10*3/uL 150-450 [facility] Work Phone: Serum or plasma albumin elroy urement (mass/volume)on 03-17-2021 Albumin [Mass/Vol] 4.1 g/dL 3.2-5.0 [facility] Work Phone: Serum or plasma calcium elroy urement (mass/volume)on 03-17-2021 Calcium [Mass/Vol] 10.2 mg/dL 8.5-10.1 [facility] Work Phone: Serum or plasma creatinine m easurement (mass/volume)on 03-17-2021 Creatinine [Mass/Vol] 1.30 mg/dL 0.55-1.02 [facility] Work Phone: Comment on above: The validity of the calculated GFR & GFRAA in patients over 70 years has not been determined. Clinical correlation is essential. Serum or plasma urea nitroge n measurement (mass/volume)on 03-17-2021 Urea nitrogen [Mass/Vol] 19 mg/dL 7-18 [facility] Work Phone: Thin prep Papanicolaou smear with manual screeningon 03-17-2021 Thin prep Papanicolaou smear with manual screening 20 U/L 15-37 [facility] Work Phone: Thin prep Papanicolaou smear with manual screening 5 5-15 [facility] Work Phone: .Auto Diffon 04-27-2018 Ammonia mass conc (P) 0.60 10 3/mcL Normal 0.09-1.40 [facility] ([place]) Comment on above: Performed By: #### CELSO JANE, ANEU #### [address] [address] Basophils #/vol (Bld) 0.00 10 3/mcL Normal 0.00-0.27 [facility] ([place]) Comment on above: Performed By: #### CELSO JANE, ANEU #### [address] [address] Basophils/100 WBC (Bld) 0.3 % Normal 0.0-2.5 [facility] ([place]) Comment on above: Performed By: #### CELSO JANE, ANEU #### [address] [address] Eosinophils #/vol (Bld) 0.10 10 3/mcL Normal 0.00-0.65 [facility] ([place]) Comment on above: Performed By: #### CELSO JANE, ANEU #### [address] [address] Eosinophils/100 WBC (Bld) 1.5 % Normal 0.0-6.0 [facility] ([place]) Comment on above: Performed By: #### CELSO JANE, ANEU #### [address] [address] Lymphocytes #/vol (Bld) 1.80 10 3/mcL Normal 0.90-4.32 [facility] ([place]) Comment on above: Performed By: #### C CELSO DE LEON, ANEU #### [address] [address] Lymphocytes/100 WBC (Bld) 28.5 % Normal 20.0-40.0 [facility] ([place]) Comment on above: Performed By: #### CELSO JANE, ANEU #### [address] [address] Monocytes/100 WBC (Bld) 10.4 % Normal 2.0-13.0 [facility] ([place]) Comment on above: Performed By: #### C CELSO DE LEON, ANEU #### [address] [address] Neutrophils/100 WBC (Bld) 59.3 % Normal 50.0-75.0 [facility] [place] Comment on above: Performed By: #### C CELSO DE LEON, ANEU #### [address] [address] .GFRon 04-27-2018 GFR Non- >60 Normal [facility] ([place]) Comment on above: Result Comment: GFR Population mean for , Non- Americans Ages 20-29 = 116 mL/min/1.73 sq.m. Ages 30-39 = 107 mL/min/1.73 sq.m. Ages 40-49 = 99 mL/min/1.73 sq.m. Ages 50-59 = 93 mL/min/1.73 sq.m. Ages 60-69 = 85 mL/min/1.73 sq.m. Ages 70+ = 75 mL/min/1.73 sq.m. Chronic Kidney Disease: Less than 60 mL/min/1.73 square meters End Stage Renal Disease: Less than 15 mL/min/1.73 square meters Performed By: #### B MP, GFR #### [address] [address] GFR >60 Normal [facility] ([place]) Comment on above: Result Comment: GFR Population mean for , Non- Americans Ages 20-29 = 116 mL/min/1.73 sq.m. Ages 30-39 = 107 mL/min/1.73 sq.m. Ages 40-49 = 99 mL/min/1.73 sq.m. Ages 50-59 = 93 mL/min/1.73 sq.m. Ages 60-69 = 85 mL/min/1.73 sq.m. Ages 70+ = 75 mL/min/1.73 sq.m. Chronic Kidney Disease: Less than 60 mL/min/1.73 square meters End Stage Renal Disease: Less than 15 mL/min/1.73 square meters Performed By: #### B MP, GFR #### [address] [address] .NEUABSon 04-27-2018 Neutrophils #/vol (Bld) 3.70 10 3/mcL Normal 2.25-8.10 [facility] ([place]) Comment on above: Performed By: #### C BC, ADIFF, ANEU #### [address] [address] BMPon 04-27-2018 Creatinine mass conc 0.69 mg/dL Normal 0.50-1.20 [facility] ([place] Comment on above: Performed By: #### B MP, GFR #### [place] [address] Urea nitrogen/Creatinine mass ratio 24.6 ratio High 10.0-22.0 [facility] ([place] Comment on above: Performed By: #### B MP, GFR #### [place] [address] Calcium mass conc 9.9 mg/dL Normal 8.4-10.1 [facility] ([place] Comment on above: Performed By: #### B MP, GFR #### [place] [address] Chloride molar conc 102 mmol/L Normal 98-110 [facility] ([place]) Comment on above: Performed By: #### B MP, GFR #### [place] [address] CO2 molar conc 28 mmol/L Normal 22-32 [facility] ([place] Comment on above: Performed By: #### B MP, GFR #### [place] [address] Electrolyte Balance 9.0 mEq/L Normal 4.0-15.0 [facility] ([place] Comment on above: Performed By: #### B MP, GFR #### [place] [address] Glucose mass conc 93 mg/dL Normal 82-115 [facility] ([place] Comment on above: Performed By: #### B MP, GFR #### [place] [address] Potassium molar conc 4.2 mmol/L Normal 3.5-5.0 [facility] ([place] Comment on above: Performed By: #### B MP, GFR #### [place] [address] Sodium molar conc 139 mmol/L Normal 136-145 [facility] ([place] Comment on above: Performed By: #### B MP, GFR #### [place] [address] Urea nitrogen mass conc 17.0 mg/dL Normal 8.0-22.0 [facility] ([place] Comment on above: Performed By: #### B MP, GFR #### [place] [address] CBCon 04-27-2018 Erythrocyte distribution width Ratio (RBC) 12.7 % Normal 11.5-15.5 [facility] ([place] Comment on above: Performed By: #### C CELSO DE LEON, ANEU #### [place] [address] Hematocrit Volume Fraction (Bld) 38.4 % Normal 34.0-46.0 [facility] ([place] Comment on above: Performed By: #### C CELSO DE LEON, ANEU #### [place] [address] Hemoglobin mass conc (Bld) 13.1 G/dL Normal 12.0-16.0 [facility] ([place]) Comment on above: Performed By: #### C CELSO DE LEON, ANEU #### [place] [address] MCH Entitic mass (RBC) 31.1 pg Normal 27.0-33.0 [facility] ([place]) Comment on above: Performed By: #### C CELSO DE LEON, ANEU #### [place] [id number] MCHC mass conc (RBC) 34.3 G/dL Normal 32.0-36.0 [facility] ([place]) Comment on above: Performed By: #### C CELSO DE LEON, ANEU #### [facility] [address] [place], [place] [address] MCV Entitic volume (RBC) 90.8 fL Normal 80.0-99.0 [facility] ([place]) Comment on above: Performed By: #### CELSO JANE ANEU #### [place] [address] Platelet mean volume Entitic volume (Bld) 9.2 fL Normal 6.6-10.5 [facility] ([place]) Comment on above: Performed By: #### CELSO JANE ANEU #### [place] [address] Platelets #/vol (Bld) 279 10 3/mcL Normal 150-450 [facility] ([place]) Comment on above: Performed By: #### CELSO JANE ANEU #### [place] [address] RBC #/vol (Bld) 4.23 10 6/mcL Normal 4.10-5.30 [facility] ([place]) Comment on above: Performed By: #### CELSO JANE ANEU #### [place] [address] WBC #/vol (Bld) 6.20 10 3/mcL Normal 4.50-10.80 [facility] ([place]) Comment on above: Performed By: #### CELSO JANE ANEU #### [address] [address] JEMIMAOVon 10-06-2017 CNOV Office Visit ([facility]WSTR) -------FRANCI ALMONTE ([id number]) 1960 FDate Time Provider Department10/06/17 10:30 AM AXEL BELL ([facility]O) WSTR During your visit today, we recorded the following information about you: Temperature Pulse Blood pressure Weight 98.6 degrees 90/minute 128/78 69.9 kgAxel S Naveen, AIRCRAFT MAINTENANCE TECHNICIAN.DEISI 10/06/2017 11:01 AM SignedSubjectiveHPIPatient presents with:Allergies: bilateral eyes red and swollen, itchy x 2 weeks and worsening thepast 5 days.Zyrtect otc with no relief.Review of SystemsConstitutional: Negative for chills, fever and malaise/fatigue.HENT: Positive for congestion and sinus pain. Negative for ear pain and sorethroat.Eyes: Positive for discharge and redness. Negative for blurred vision, doublevision, photophobia and pain.Neurological: Negative for headaches.Endo/Heme/Allergi es: Positive for environmental allergies.PAST MEDICAL HISTORYDiagnosis Date- Other and unspecified hyperlipidemiaPAST SURGICAL HISTORYProcedure Laterality Date- PAST SURGICAL HISTORY OF C-Sections -3- REMOVAL OF TONSILS,12+ Y/OALLERGIES Patient has no known allergies.MEDICATIONSimatin ib mesylate (GLEEVEC) 400 mg tablet Take 400 mg by mouth.Cetirizine (ZYRTEC) 10 mg cap Take 20 mg by mouth.dextroamphetamine-amp hetamine (ADDERALL) 5 mg tablet TAKE 1 TABLET 3 TIMES ADAY BY MOUTH FOR 30 DAYSbisoprolol (ZEBETA) 5 mg tabletomeprazole (PRILOSEC) 20 mg capsule Take 20 mg by mouth.ADVISOR TO COMMAND IN COMBAT THYROID 90 mg tab Take 1 tablet by mouth once daily.amoxicillin-clavulani c acid (AUGMENTIN) 875-125 mg per tablet Take 1 tablet bymouth twice daily for 10 days.predniSONE (DELTASONE) 10 mg tablet Take 4 tabs daily for 3 days, then 2 tabsdaily for 3 days, then 1 tab daily for 3 days with food.fluticasone (FLONASE) 50 mcg/actuation nasal spray Use 2 Sprays in each nostrilonce daily. Rinse mouth after use.LIPITOR 10 MG TAB Take one(1) tablet daily.METROGEL 1 % TOPICAL Apply to affected areas of rosacea on face QD as directedand tolerated.No family history on file.Social HistorySubstance Use Topics- Smoking status: Never Smoker- Smokeless tobacco: Never Used- Alcohol use NoObjectivePhysical ExamConstitutional: She is well-developed, well-nourished, and in no distress.HENT:Head: Normocephalic.Right Ear: External ear and ear canal normal. A middle ear effusion (clear) ispresent.Left Ear: External ear and ear canal normal. A middle ear effusion (clear) ispresent.Nose: Mucosal edema and rhinorrhea present. Right sinus exhibits no maxillarysinus tenderness and no frontal sinus tenderness. Left sinus exhibits nomaxillary sinus tenderness and no frontal sinus tenderness.Mouth/Throat: Posterior oropharyngeal erythema (PND) present.Eyes: EOM are normal. Pupils are equal, round, and reactive to light. Right eyeexhibits discharge (watery). Left eye exhibits discharge (watery). Rightconjunctiva is injected. Left conjunctiva is injected.Visual acuity intactNeck: Normal range of motion. Neck supple.Cardiovascular: Normal rate, regular rhythm and normal heart sounds.Pulmonary/Chest: Effort normal and breath sounds normal. No respiratorydistress. She has no wheezes.Abdominal: Soft. She exhibits no distension. There is no tenderness.Lymphadenopathy: She has no cervical adenopathy.Skin: Skin is warm and dry. No rash noted.Nursing note and vitals reviewed.ASSESSMENT/PLAN:1. Acute conjunctivitis of both eyes, unspecified acute conjunctivitis type -ICD9: 372.00, ICD10: H10.33 (primary diagnosis)- see medication orders- course and contagiousness issues discussed, including hand washing.- Instructed to call if high fever, development of periorbital redness orswelling, eye pain, visual changes, concerns or if symptoms persist.2. Acute sinusitis, recurrence not specified, unspecified location - ICD9:461.9, ICD10: J01.90- Will begin treatment with Augmentin 875 mg PO BID for 10 days- The patient should also be given OTC decongestants prn, OTC cough and coldmeds as needed, warm salt water gargles, throat lozenges and/or OTC throatspray as needed and nasal saline gtts and suction prn for the first 5-7 days oftreatment.- Supportive care with plenty of fluids, rest, and analgesia prn.- Follow up in 3-5 days if symptoms persist or worsen.3. Seasonal allergic rhinitis, unspecified trigger - ICD9: 477.9, ICD10: J30.6-Kgrowwr-Lpzthfkkwf-F/ u with pcp in 3-5 days or sooner if symptoms are not improving or worseningPrescription instructions reviewed with patient as applicable. Patient advisedif symptoms do not improve or if symptoms worsen sooner, to contact theirprimary care physician. Potential red flag symptoms discussed with thepatient. Reviewed appropriate action plan to take if red flag symptoms occur.Patient agreeable to treatment plan.Axel Bell APRN.CNPReferring Provider: SELF [[id number]]Allergies As of Date: 10/06/2017(No Known Allergies)Date Reviewed: 10/06/2017Reviewed by: Brie Wright Ma - Fully AssessedReason for Visit: Allergies [4] Cmt: bilateral eyes red and swollen, itchy X 5 days, getting worsePrimary Visit Diagnosis:Acute conjunctivitis of both eyes, unspecified acute conjunctivitis type [H10.33] Other Visit Diagnoses:Acute sinusitis, recurrence not specified, unspecified location [J01.90] Seasonal allergic rhinitis, unspecified trigger [J30.2]Order(s):amoxicillin -clavulanic acid (AUGMENTIN) 875-125 mg per tabletTake 1 tablet by mouth twice daily for 10 days.Disp: 20 tabletRfl: 0 predniSONE (DELTASONE) 10 mg tabletTake 4 tabs daily for 3 days, then 2 tabs daily for 3 days, then 1 tab daily for 3 days with food.Disp: 21 tabletRfl: 0 fluticasone (FLONASE) 50 mcg/actuation nasal sprayUse 2 Sprays in each nostril once daily. Rinse mouth after use.Disp: 1 BottleRfl: 0Prescriptions as of 10/06/2017 Sig: IMATINIB 400 MG TABLET Take 400 mg by mouth. CETIRIZINE 10 MG CAPSULE Take 20 mg by mouth. DEXTROAMPHETAMINE-AMPHETAMI NE* TAKE 1 TABLET 3 TIMES A DAY B* BISOPROLOL FUMARATE 5 MG TABL* OMEPRAZOLE 20 MG CAPSULE,ALBER* Take 20 mg by mouth. ADVISOR TO COMMAND IN COMBAT THYROID 90 MG TABLET Take 1 tablet by mouth once d* AMOXICILLIN 875 MG-POTASSIUM * Take 1 tablet by mouth twice * PREDNISONE 10 MG TABLET Take 4 tabs daily for 3 days,* FLUTICASONE 50 MCG/ACTUATION * Use 2 Sprays in each nostril * LIPITOR 10 MG TABLET Take one(1) tablet daily. 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 PREDNISONE 10 MG TABLET 21 t* 0 10/06/2017 10/15/2017 Sig: Take 4 tabs daily for 3 days, then 2 tabs daily for 3 days, then 1 tab daily for 3 days with food. FLUTICASONE 50 MCG/ACTUATION NASAL S* 1 Ricardo* 0 10/06/2017 Route: EACH NOSTRIL Sig: Use 2 Sprays in each nostril once daily. Rinse mouth after use.Disposition: Return if symptoms worsen or fail to improve.Follow-up and Disposition History RecordedEncounter Number: [id number] Status:Closed by AXEL BELL on 10/06/17 Normal [facility] PROGRESSon 10-06-2017 Protein mass conc HNO ID: [id number] thor: Axel Melgoza (Asbestos Abatement Worker) NaveenService: (none)Author Type: Nurse PractitionerType: Progress NotesFiled: 10/06/2017 11:01 AMNote Text:SubjectiveHPIPatient presents with:Allergies: bilateral eyes red and swollen, itchy x 2 weeks and worseningthe past 5 days.Zyrtect otc with no relief.Review of SystemsConstitutional: Negative for chills, fever and malaise/fatigue.HENT: Positive for congestion and sinus pain. Negative for ear pain andsore throat.Eyes: Positive for discharge and redness. Negative for blurred vision,double vision, photophobia and pain.Neurological: Negative for headaches.Endo/Heme/Allergi es: Positive for environmental allergies.PAST MEDICAL HISTORYDiagnosis Date- Other and unspecified hyperlipidemiaPAST SURGICAL HISTORYProcedure Laterality Date- PAST SURGICAL HISTORY OF C-Sections -3- REMOVAL OF TONSILS,12+ Y/OALLERGIES Patient has no known allergies.MEDICATIONSimatin ib mesylate (GLEEVEC) 400 mg tablet Take 400 mg by mouth.Cetirizine (ZYRTEC) 10 mg cap Take 20 mg by mouth.dextroamphetamine-amp hetamine (ADDERALL) 5 mg tablet TAKE 1 TABLET 3 TIMESA DAY BY MOUTH FOR 30 DAYSbisoprolol (ZEBETA) 5 mg tabletomeprazole (PRILOSEC) 20 mg capsule Take 20 mg by mouth.ADVISOR TO COMMAND IN COMBAT THYROID 90 mg tab Take 1 tablet by mouth once daily.amoxicillin-clavulani c acid (AUGMENTIN) 875-125 mg per tablet Take 1tablet by mouth twice daily for 10 days.predniSONE (DELTASONE) 10 mg tablet Take 4 tabs daily for 3 days, then 2tabs daily for 3 days, then 1 tab daily for 3 days with food.fluticasone (FLONASE) 50 mcg/actuation nasal spray Use 2 Sprays in eachnostril once daily. Rinse mouth after use.LIPITOR 10 MG TAB Take one(1) tablet daily.METROGEL 1 % TOPICAL Apply to affected areas of rosacea on face QD asdirected and tolerated.No family history on file.Social HistorySubstance Use Topics- Smoking status: Never Smoker- Smokeless tobacco: Never Used- Alcohol use NoObjectivePhysical ExamConstitutional: She is well-developed, well-nourished, and in no distress.HENT:Head: Normocephalic.Right Ear: External ear and ear canal normal. A middle ear effusion(clear) is present.Left Ear: External ear and ear canal normal. A middle ear effusion (clear)is present.Nose: Mucosal edema and rhinorrhea present. Right sinus exhibits nomaxillary sinus tenderness and no frontal sinus tenderness. Left sinusexhibits no maxillary sinus tenderness and no frontal sinus tenderness.Mouth/Throat: Posterior oropharyngeal erythema (PND) present.Eyes: EOM are normal. Pupils are equal, round, and reactive to light.Right eye exhibits discharge (watery). Left eye exhibits discharge(watery). Right conjunctiva is injected. Left conjunctiva is injected.Visual acuity intactNeck: Normal range of motion. Neck supple.Cardiovascular: Normal rate, regular rhythm and normal heart sounds.Pulmonary/Chest: Effort normal and breath sounds normal. No respiratorydistress. She has no wheezes.Abdominal: Soft. She exhibits no distension. There is no tenderness.Lymphadenopathy: She has no cervical adenopathy.Skin: Skin is warm and dry. No rash noted.Nursing note and vitals reviewed.ASSESSMENT/PLAN:1. Acute conjunctivitis of both eyes, unspecified acute conjunctivitistype - ICD9: 372.00, ICD10: H10.33 (primary diagnosis)- see medication orders- course and contagiousness issues discussed, including hand washing.- Instructed to call if high fever, development of periorbital redness orswelling, eye pain, visual changes, concerns or if symptoms persist.2. Acute sinusitis, recurrence not specified, unspecified location - ICD9:461.9, ICD10: J01.90- Will begin treatment with Augmentin 875 mg PO BID for 10 days- The patient should also be given OTC decongestants prn, OTC cough andcold meds as needed, warm salt water gargles, throat lozenges and/or OTCthroat spray as needed and nasal saline gtts and suction prn for the first5-7 days of treatment.- Supportive care with plenty of fluids, rest, and analgesia prn.- Follow up in 3-5 days if symptoms persist or worsen.3. Seasonal allergic rhinitis, unspecified trigger - ICD9: 477.9, ICD10:J30.7-Zichqnu-Qkjauvs one-F/u with pcp in 3-5 days or sooner if symptoms are not improving orworseningPrescription instructions reviewed with patient as applicable. Patientadvised if symptoms do not improve or if symptoms worsen sooner, tocontact their primary care physician. Potential red flag symptomsdiscussed with the patient. Reviewed appropriate action plan to take ifred flag symptoms occur. Patient agreeable to treatment plan.Axel Bell APRN.FISH BAIT PROCESSING SUPERVISOR Normal [facility] Vital Signs Date Time Vital Sign Value Performing Clinician Facility 09-28-2023 09:52-0400 Body temperature 97.39 [degF] Maribeth Steiner MD Work Phone: [facility] 09-28-2023 09:52-0400 Body weight 65.05 kg Maribeth Steiner MD Work Phone: [facility] 09-28-2023 09:52-0400 Diastolic blood pressure 60 mm[Hg] Maribeth Steiner MD Work Phone: [facility] 09-28-2023 09:52-0400 Heart rate 60 /min Maribeth Steiner MD Work Phone: [facility] 09-28-2023 09:52-0400 Respiratory rate 18 /min Maribeth Steiner MD Work Phone: [facility] 09-28-2023 09:52-0400 SaO2% (BldA) [Mass fraction] 100 % Maribeth Steiner MD Work Phone: [facility] 09-28-2023 09:52-0400 Systolic blood pressure 129 mm[Hg] Maribeth Steiner MD Work Phone: [facility] 02-09-2023 09:06-0500 Body temperature 98.01 [degF] Leatha Kat APRN-FISH BAIT PROCESSING SUPERVISOR Work Phone: [facility] 02-09-2023 09:06-0500 Body weight 72.21 kg Leatha Kat APRN-FISH BAIT PROCESSING SUPERVISOR Work Phone: [facility] 02-09-2023 09:06-0500 Diastolic blood pressure 72 mm[Hg] Leatha Kat APRN-FISH BAIT PROCESSING SUPERVISOR Work Phone: [facility] 02-09-2023 09:06-0500 Heart rate 75 /min Leatha Kat APRN-FISH BAIT PROCESSING SUPERVISOR Work Phone: [facility] 02-09-2023 09:06-0500 Respiratory rate 18 /min Leatha Kat AIRCRAFT MAINTENANCE TECHNICIAN-FISH BAIT PROCESSING SUPERVISOR Work Phone: [facility] 02-09-2023 09:06-0500 SaO2% (BldA) [Mass fraction] 98 % Leatha Kat AIRCRAFT MAINTENANCE TECHNICIAN-FISH BAIT PROCESSING SUPERVISOR Work Phone: [facility] 02-09-2023 09:06-0500 Systolic blood pressure 113 mm[Hg] Leatha Stapletonffman AIRCRAFT MAINTENANCE TECHNICIAN-FISH BAIT PROCESSING SUPERVISOR Work Phone: [phone] [address] 10-20-2022 09:59-0400 Body mass index (BMI) [Ratio] 26.09 kg/m2 Maribeth Steiner MD Work Phone: [phone])[phone] [address] 10-20-2022 09:59-0400 Body temperature 98.01 [degF] Maribeth Steiner MD Work Phone: [phone])[phone] [place] [address] 10-20-2022 09:59-0400 Body weight 71.12 kg Maribeth Steiner MD Work Phone: [facility] 10-20-2022 09:59-0400 Diastolic blood pressure 74 mm[Hg] Maribeth Steiner MD Work Phone: [facility] 10-20-2022 09:59-0400 Heart rate 76 /min Maribeth Steiner MD Work Phone: [phone] [address] 10-20-2022 09:59-0400 Respiratory rate 20 /min Maribeth Steiner MD Work Phone: [phone])[phone] [address] 10-20-2022 09:59-0400 SaO2% (BldA) [Mass fraction] 98 % Maribeth Steiner MD Work Phone: [facility] 10-20-2022 09:59-0400 Systolic blood pressure 144 mm[Hg] Maribeth Steiner MD Work Phone: [facility] 06-26-2022 05:33-0400 Body mass index (BMI) [Ratio] 24.3 kg/m2 [facility] 02-27-2022 06:43-0500 Body mass index (BMI) [Ratio] 24.3 kg/m2 [facility] 10-28-2021 01:17-0400 Body mass index (BMI) [Ratio] 24.3 kg/m2 [facility] Work Phone: 10-21-2021 08:40-0400 Body mass index (BMI) [Ratio] 26.16 kg/m2 Maribeth Steiner MD Work Phone: [facility] 10-21-2021 08:40-0400 Body temperature 97.59 [degF] Maribeth Steiner MD Work Phone: [facility] 10-21-2021 08:40-0400 Body weight 71.31 kg Maribeth Steiner MD Work Phone: [facility] 10-21-2021 08:40-0400 Diastolic blood pressure 77 mm[Hg] Maribeth Steiner MD Work Phone: [facility] 10-21-2021 08:40-0400 Heart rate 72 /min Maribeth Steiner MD Work Phone: [facility] 10-21-2021 08:40-0400 Respiratory rate 18 /min Maribeth Steiner MD Work Phone: [facility] 10-21-2021 08:40-0400 SaO2% (BldA) [Mass fraction] 99 % Maribeth Steiner MD Work Phone: [facility] 10-21-2021 08:40-0400 Systolic blood pressure 140 mm[Hg] Maribeth Steiner MD Work Phone: [facility] 06-27-2021 04:03-0400 Body mass index (BMI) [Ratio] 24.3 kg/m2 [facility] Work Phone: 03-30-2021 02:44-0500 Body mass index (BMI) [Ratio] 24.3 kg/m2 [facility] Work Phone: 03-30-2021 01:44-0500 Body mass index (BMI) [Ratio] 24.3 kg/m2 [facility] Work Phone: 11-27-2020 02:18-0400 Body mass index (BMI) [Ratio] 24.3 kg/m2 [facility] Work Phone: Encounters Encounter Date Encounter Type Care Provider Facility Start: 09-23-2024 ambulatory [facility] Facility:[facility] Start: 09-04-2024 End: 09-04-[address] Shae Cota MD Work Phone: -Cat Scan [facility] Start: 09-04-2024 End: 09-04-[address] Shae Cota MD -Cat Scan [facility] Work Phone: Start: 09-04-2024 End: 09-04-2024 ambulatory Shae Cota Facility:[facility] Start: 08-07-2024 Non-patient / Non-visit Dr. Darlin PETERS -[facility] Work Phone: Start: 08-07-[address] Shae Cabrera D -Cat Scan [facility] Work Phone: Start: 08-07-2024 ambulatory Roberto Moore Facility:[facility] Start: 07-28-2024 ambulatory Shae [place] Facility:[facility] Start: 07-24-2024 End: 07-24-[address] Shae Cota MD Work Phone: -[facility] Work Phone: Start: 07-24-2024 End: 07-24-[address] Shae Cota MD Work Phone: [facility] Work Phone: Start: 07-10-2024 End: 07-10-2024 Telephone encounter Roxi Leyda childcare teacher and Acute Leukemia at [facility] Comment on above: Information Update Start: 02-15-2024 ambulatory SHAE COTA Facility:[facility] Start: 01-18-2024 ambulatory SHAE COTA Facility:[facility] Start: 12-29-2023 End: 01-27-2024 ambulatory DENISE HEBERT Facility:[facility] Start: 12-28-2023 End: 12-28-2023 ambulatory Shae Cota Facility:[facility] Start: 12-06-2023 Encounter for genera l adult medical examination without abnormal findings Shae Cota [facility] Start: 11-14-2023 End: 11-14-2023 ambulatory Shae Cota Facility:[facility] Start: 11-03-2023 End: 11-03-2023 ambulatory Shae Cota Facility:[facility] Start: 10-17-2023 End: 10-17-2023 ambulatory Shae Cota Facility:[facility] Start: 09-28-2023 End: 09-28-2023 Office outpatient visit 15 minutes Maribeth Steiner MD Work Phone: [facility] Comment on above: CML (chronic myelocy tic leukemia) (Primary Dx) Start: 09-28-2023 ambulatory SHAE COTA Facility:[facility] Start: 02-09-2023 End: 02-09-2023 Office outpatient visit 25 minutes Maribeth Steiner MD Work Phone: [facility] Comment on above: CML (chronic myelocy tic leukemia) (Primary Dx) Start: 10-20-2022 End: 10-20-2022 Office outpatient visit 15 minutes Maribeth Steiner MD Work Phone: Division of Hematology & Oncology Comment on above: CML (chronic myelocy tic leukemia) (Primary Dx) Start: 10-18-2022 End: 10-18-2022 ambulatory [facility] Work Phone: Start: 10-18-2022 End: 10-18-2022 Discharged Recurring [facility] Work Phone: Start: 08-01-2022 End: 08-01-2022 Patient encounter procedure [facility] Work Phone: Start: 06-02-2022 End: 06-26-2022 ambulatory [facility] Work Phone: Start: 06-02-2022 End: 06-26-2022 Discharged Recurring [facility] Start: 01-27-2022 End: 01-27-2022 ambulatory [facility] Work Phone: Start: 01-27-2022 End: 01-27-2022 Discharged Recurring [facility] Start: 10-21-2021 End: 10-21-2021 Office outpatient visit 15 minutes Maribeth Steiner MD Work Phone: Division of Hematology & Oncology Comment on above: CML (chronic myelocy tic leukemia) (Primary Dx) Start: 10-05-2021 End: 10-05-2021 ambulatory [facility] Work Phone: Start: 10-05-2021 End: 10-05-2021 Discharged Recurring [facility] Start: 08-17-2021 End: 08-17-2021 Patient encounter procedure [facility] Start: 07-19-2021 End: 07-19-2021 [facility] Start: 06-23-2021 End: 06-23-2021 Discharged Recurring [facility] Start: 04-27-2021 End: 04-27-2021 [facility] Start: 03-23-2021 End: 03-23-2021 [facility] Start: 03-17-2021 End: 03-29-2021 Discharged Recurring [facility] Start: 05-08-2018 End: 05-08-2018 Patient encounter procedure STEPHANIE MCCARTY Facility:A Start: 04-27-2018 End: 04-28-2018 Patient encounter procedure STEPHANIE MCCARTY Facility:[facility] Start: 10-06-2017 End: 10-09-2017 Patient encounter [facility] Start: 01-02-2017 End: 01-02-2017 [facility] Procedures Date Procedure Procedure Detail Performing Clinician Start: 09-04-[address] Shae Cota MD Work Phone: Start: 09-04-2024 CT of thorax with contrast Dr. Shae hines MD Work Phone: Start: 08-07-2024 CT angiography of coronary arteries Dr. Shae Cota MD Work Phone: Start: 07-24-[address] Shae Cota MD Work Phone: Comment on above: Test Ordered: [id number] BCR-ABL1, CML/ALL, PCR, [id number] (b2a2) transcript <0.0032 % % CH[facility] Reference Range: .e14a2 (b3a2) transcript <0.0032 % % CH[facility]IRA Reference Range: .e1a2 transcript <0.0032 % % CHAVIRA Reference Range: .Interpretation: Negative CHAVIRA Reference Range: .NEGATIVE for the BCR-ABL1 e1a2 (p190), e13a2 (b2a2, p210)and e14a2 (b3a2, p210) fusion transcripts. These results donot rule out the presence of rare BCR-ABL1 transcripts notdetected by this assay.Director Review Comment CHAVIRA Reference Range: .Technical Component performed at [facility] RTPProfessional Component performed by:Duane Hebert, PhD, FACMGDirector, Molecular OncologyMedfield State Hospital [id number], [address] [facility] [phone] Comment CHAVIRA Reference Range: .This assay can detect three different types of BCR-RVL2bibtgm transcripts associated with CML, ALL, and AML: e13a2(previously b2a2) and e14a2 (previously b3a2) (majorbreakpoint, p210), as well as e1a2 (minor breakpoint,p190). The e13a2 and e14a2 transcript values are titratedto the current International Scale (IS). The standardizedbaseline is 100% BCR-ABL1 (IS) and major molecularresponse (MMR) is equivalent to 0.1% BCR-ABL1 (IS)corresponding to a 3-log reduction. Results should becorrelated with appropriate clinical and laboratoryinformation as indicated.Methodology Comment TG Reference Range: .Total RNA is isolated from the sample and subject to a real-time, reverse transcriptase polymerase chain reaction (RT-PCR). The PCR primers and probes are specific for BCR-[id number], e14a2 and e1a2 fusion transcripts. The [id number] is amplified as the control for cDNA quantityand quality. Serial dilutions of a validated positivecontrol RNA with known t(9;22) BCR-ABL1 are used asreference for quantification of BCR-ABL1 relative toABL1. The numeric BCR-ABL1 level is reported as % BCR-ABL1/ABL1 and the detection sensitivity is 4.5 log belowthe standard baseline (<0.0032%).This test was developed and its performance characteristicsdetermined by [employer]. It has not been cleared or approvedby the Food and Drug Administration.References Comment Reference Range: .1) Wilfrido Nath S. Molecular monitoring of chronicmyeloid leukemia. Semin Hematol. 2003 Apr; 40(2 Suppl2):62-68.2) NCCN Clinical Practice Guidelines in Oncology ChronicMyeloid Leukemia Version 1.2024 - October 04) Aranza DIAZ, Lacey P, Royer P, et al. Establishmentof the of the first World Health OrganizationInternational Genetic Reference Panel for quantitationof BCR-ABL mRNA. Blood. 2010 25; 116(22):a061-530.Performed at: [facility] [id number] [employer] [place], [place] [id number] Director: Svetlana Rico [facility], Phone: [phone] at: [facility] [id number] [place], [place] [id number] Director: Svetlana Rico [facility], Phone: [phone] at: [address] [id number] Director: Arun Ponce PhD, Phone: [phone] Start: 08-17-2021 Screening mammography Start: 03-23-2021 Complete x-ray series of lumbar spine with bending views Plan of Treatment Date Care Activity Detail Author Start: 06-21-2025 Screening for malign ant neoplasm of colon COLORECTAL CANCER SCREENING DISCUSSION [facility] Start: 02-06-2025 End: 02-06-2025 Patient encounter procedure 02/06/2025 10:40 AM EST Office Visit Hematology and Acute Leukemia at [facility] [address] [place] [address], [place] [address] Maribeth Steiner MD [address] [place] [phone] Hematology and Acute Leukemia at [facility] Start: 10-28-2024 Influenza vaccination INFLUENZ A VACCINE (Season Ended) [facility] Start: 07-24-2024 Procedure [facility] Start: 01-11-2024 End: 01-11-2024 Patient encounter procedure 01/11/2024 10:40 AM EST Office Visit [facility] [address] [place] [address] Maribeth Steiner MD [address] [place] [phone] [facility] Start: 10-29-2023 Influenza vaccination INFLUENZA VACC INE (#1) [facility] Start: 08-10-2023 End: 08-10-2023 Patient encounter procedure 08/10/2023 10:00 AM EDT Office Visit [facility] [address] [place] [phone] Maribeth Steiner MD [address] [place] [phone] [facility] Start: 02-09-2023 End: 02-09-2023 Patient encounter procedure 02/09/2023 9:20 AM EST Office Visit Division of Hematology & Oncology [address] [place] [phone] Maribeth Steiner MD [address] [place] [phone] Division of Hematology & Oncology Start: 10-28-2022 Influenza vaccination INFLUENZA VACC INE (#1) [facility] Start: 02-10-2022 End: 02-10-2022 Patient encounter procedure 02/10/2022 Office Visit Hematology Maribeth Steiner MD [address] 1[address] Floor [place] [phone] Division of Hematology & Oncology Start: 10-28-2021 Influenza vaccination INFLUENZA VACC INE (#1) [facility] Start: 01-17-2021 COVID-19 VACCINE (3 - Pfizer risk series) COVID-19 VACCINE (3 - Pfizer risk series) [facility] Start: 08-11-2019 Potassium [Moles/vol ume] in Serum or Plasma POTASSIUM [facility] Start: 2018 RSV VACCINE (1 - 1-d ose 60+ series) RSV VACCINE (1 - 1-dose 60+ series) [facility] Start: 2018 RSV VACCINE (1 - Ris k 60-74 years 1-dose series) RSV VACCINE (1 - Risk 60-74 years 1-dose series) [facility] Start: 02-04-2014 Pneumococcal vaccination [facility] Start: 02-04-2014 PNEUMOCOCCAL VACCINE SERIES (2 - PCV) PNEUMOCOCCAL VACCINE SERIES (2 - PCV) [facility] Start: 01-05-2008 Zoster vaccine hzv l martin for subcutaneous use ZOSTER (SHINGLES) VACCINE (1 of 2) [facility] Start: 2003 Colonoscopy COLORECTAL CAN CER SCREENING DISCUSSION [facility] Start: 2003 Screening for malign ant neoplasm of colon COLORECTAL CANCER SCREENING DISCUSSION [facility] Start: 1998 Fasting lipid profile LIPID SCREENIN G [facility] Start: 1998 Lipid panel LIPID SCREENING [facility] Start: 1998 Screening for malign ant neoplasm of breast MAMMOGRAM SCREENING DISCUSSION [facility] Start: 1998 Screening mammography MAMMOGRA M SCREENING DISCUSSION [facility] Start: 1979 Screening for malign ant neoplasm of cervix CERVICAL CANCER SCREENING DISCUSSION [facility] Start: 1977 Third diphtheria, tetanus and acellular pertussis (DTaP) vaccination TDAP (ADULT) [facility] Start: 1977 Zoster vaccine hzv l martin for subcutaneous use ZOSTER (SHINGLES) VACCINE (1 of 2) [facility] Start: 01-05-1976 Tetanus vaccination TETANUS [facility] Start: 1973 HIV screening HIV SCREENING DISCUSSION [facility] Start: 1960 Hepatitis C antibody , confirmatory test HEPATITIS C VIRUS SCREENING [facility] Start: 1958 Hepatitis C screening HEPATITI S C VIRUS SCREENING [facility] Start: 1960 Screening for osteoporosis DEXA SCAN DISCUSSION [facility] Start: 1958 Tetanus vaccination TETANUS [facility] Start: 1958 Thyroid stimulating hormone measurement TSH [facility] End: 09-27-2024 BCR/ABL BLOOD OR BONE MARROW,T(9;22),QUANT BCR/ABL BLOOD OR BONE MARROW,T(9;22),QUANT Lab Routine CML (chronic myelocytic leukemia) q 3 months/prn for 12 Occurrences starting 09/28/2023 until 09/27/2024 [facility] Comment on above: q 3 months/prn for 1 2 Occurrences starting 09/28/2023 until 09/27/2024 End: 09-27-2024 Complete blood count with white cell differential, automated CBC, EDIF, PLATELET Lab Routine CML (chronic myelocytic leukemia) 100 Occurrences starting 09/28/2023 until 09/27/2024 [facility] Comment on above: 100 Occurrences star ting 09/28/2023 until 09/27/2024 End: 09-27-2024 Comprehensive metabolic 2000 panel - Serum or Plasma COMPREHENSIVE METABOLIC PANEL Lab Routine CML (chronic myelocytic leukemia) 100 Occurrences starting 09/28/2023 until 09/27/2024 [facility] Comment on above: 100 Occurrences star tinakhil 09/28/2023 until 09/27/2024 Patient Education RAD RN Underst anding Coronary Calcium Scan [facility] Work Phone: Immunizations Immunization Date Immunization Notes Care Provider Molly west 12-23-2019 influenza, injectabl e, quadrivalent, preservative free Maribeth Steiner MD Work Phone: [facility] 12-23-2019 influenza virus vacc ine, unspecified formulation Maribeth Steiner MD Work Phone: [facility] 01-30-2019 Influenza, injectabl e, Madin [place] Canine Kidney, preservative free, quadrivalent Maribeth Steiner MD Work Phone: [facility] 01-05-2018 influenza, injectabl e, quadrivalent, preservative free Maribeth Steiner MD Work Phone: [facility] 12-26-2016 influenza, injectabl e, quadrivalent, preservative free Maribeth Steiner MD Work Phone: [facility] 12-23-2016 influenza, injectabl e, quadrivalent, preservative free Maribeth Steiner MD Work Phone: [facility] 12-11-2015 influenza, seasonal, injectable, preservative free Maribeth Steiner MD Work Phone: [facility] 01-06-2015 influenza, seasonal, injectable, preservative free Maribeth Steiner MD Work Phone: [facility] 02-04-2013 influenza, seasonal, injectable Maribeth Steiner MD Work Phone: [facility] 02-04-2013 pneumococcal polysaccharide vaccine, 23 valent Maribeth Steiner MD Work Phone: [facility] 10-26-2010 influenza, seasonal, injectable Maribeth Steiner MD Work Phone: [facility] 12-26-2008 novel influenza-H1N1 -09, preservative-free, injectable Maribeth Steiner MD Work Phone: [facility] 12-25-2006 influenza virus vacc ine, whole virus Maribeth Steiner MD Work Phone: [facility] Payers Date Payer Category Payer Medicare [id number] 2023 Medicare [id number] 2022 Managed Care (unspecified) [employer] [id number] 2022 Unknown [id number] 2018 Self-pay 2017 Unknown [id number] 1958 Unknown [id number] 2.16.840.1.770339.3.579.2. 627 1958 Unknown [id number] 2.16.840.1.383162.3.579.2. 627 1958 Unknown [id number] 2.16.840.1.200603.3.579.2. 594 1958 Unknown [id number] 2.16.840.1.383749.3.579.2. 594 1958 Unknown [id number] 2.16.840.1.743279.3.579.2. 594 Unknown [id number] Unknown [id number] Unknown [id number] Unknown [id number] 2.16.840.1.870551.3.579.2. 462 Unknown [id number] 2.16.840.1.843757.3.579.2. 462 Unknown [id number] 2.16.840.1.487899.3.579.2. 462 Unknown [id number] 2.16.840.1.146014.3.579.2. 462 Unknown [id number] 2.16.840.1.755825.3.579.2. 462 Unknown [id number] 2.16.840.1.629257.3.579.2. 462 Unknown [id number] 2.16.840.1.925315.3.579.2. 462 Unknown [id number] 2.16.840.1.086363.3.579.2. 462 Unknown [id number] 2.16.840.1.071781.3.579.2. 462 Unknown [id number] 2.16.840.1.740479.3.579.2. 462 Unknown [id number] 2.16.840.1.730266.3.579.2. 462 Social History Date Type Detail Facility Start: 06-09-2020 End: 06-09-2020 Tobacco smoking status NHIS Unknown if ever smoked [facility] Work Phone: Start: 2020 With Family [facility] Start: 1960 Sex Assigned At Female W [facility] Start: 1960 Sex Assigned At Not on file O [facility] Start: 06-13-2014 End: 09-28-2023 History of Social function [facility] Start: 06-13-2014 End: 09-28-2023 Tobacco use panel [facility] Adolescent depressio n screening assessment 0 [facility] Gender identity Identifies as fe male gender (finding) [facility] Start: 08-08-2018 Sexual orientation Heterosexual (fin ding) [facility] Start: 04-01-2012 Sex Female (finding) [facility] Start: 06-09-2020 Tobacco smoking stat us NHIS Never smoked tobacco (finding) [facility] Clinical Notes 10-21-2021 to 09-05-2024 Telephone Encounter - Roxi Crabtree RN - 07/10/2024 7:10 AM EDTTelephone Encounter - Roxi Crabtree RN - 07/10/2024 7:10 AM Dayna Steiner MD - 09/28/2023 10:00 AM EDTPatient Instructions Note Date & Type Note Facility 09-05-2024 Radiology Diagnostic study note [facility] Imaging Services [address] [place] [address] Chest WITH Contrast MR#: [id number] Acct: [id number] Name: FRANCI ALMONTE KRISTIN Rep #: [id number] : 1960 F 64 From: Cleo Hernández MD PCP: Dr. Shae Cota MD Status: REG CLI Study:Chest WITH Contrast Date of Exam: 09/04/24 Exam# [id number] Ordering Dr: Felix Cota MD PROCEDURE: CHEST WITH CONTRAST, 09/04/2024 REASON FOR EXAM: PLEURL SWELLING TECHNIQUE: CT chest was performed with IV contrast. Multiplanar reformats were generated. IV contrast: 86 mL Isovue-300. RADIATION DOSE SUMMARY: CTDlvol: 11.3+ 8.64 mGy DLP: 324.01 mGycm One or more dose reduction techniques were used (e.g., Automated exposure control, adjustment of the mA and/or kV according to patient size, use of iterative reconstruction technique). COMPARISON: 08/07/2024 FINDINGS: Heart/pericardium: Coronary atherosclerosis better seen previously. Aorta: At most trace atherosclerosis. Pulmonary arteries: Normal in caliber. Lymph nodes: Unremarkable. Lungs/pleura: Similar trace LEFT larger than RIGHT pleural effusions. Minimal atelectasis/scarring. Subpleural opacity in the RIGHT lower lobe measures 15 x 7 mm, unchanged measured similarly (series 4 image 81). Question associated architectural distortion on coronal and sagittal reformats. Additional subpleural nodular opacity abutting the RIGHT hemidiaphragm measures 8 x 9 mm, also probably unchanged allowing for technical differences (image 85). Airways: Unremarkable. Chest wall: 1.1 x 0.7 cm nodular structure posterior to the LEFT lobe of the thyroid and adjacent to the LEFT lateral esophagus in the tracheoesophageal groove could reflect exophytic thyroid parenchyma.. Upper abdomen: Unremarkable. Musculoskeletal: Mild spondylosis.. CT/Chest WITH Contrast IMPRESSION: 1. Similar subpleural nodular opacities in the RIGHT lung base up to 11 mm average axial diameter. The appearance may reflect a nodular appearance of atelectasis/scarring, possibly rounded atelectasis, however this is not definite. Recommend continued follow-up with CT chest in 3-6 months per the Fleischner recommendations presuming no history of known malignancy or immunosuppression, in which case closer follow-up may be warranted. 2. Similar trace LEFT larger than RIGHT pleural effusions. 3. Recommend thyroid ultrasound. 4. Additional description as above. Reading Location: [id number] CC: Dr. Shae Cota MD ~ Pit Supervisor: Signed [facility] 07-10-2024 Telephone encounter Note Lab KAITLIN faxed to [facility] at fax # [phone], fax confirmation received. Patient updated via [facility] 07-10-2024 Miscellaneous Notes Lab KAITLIN faxed to [facility] at fax # [phone], fax confirmation received. Patient updated via [facility] documented in this encounter [facility] 09-28-2023 History of Presen t illness Narrative HEMATOLOGY CLINIC NOTE 09/28/2023 Chief Complaint Patient presents with Follow-up CML ASSESSMENT AND PLAN Ms. Almonte is a 63 y.o. female with a history of CML here today for ongoing follow up and treatment plans. CML: Attempted TKI cessation of Gleevec 02/2018. Upon PCR rise 07/2018, dasatinib was started 08/2018. Back in MMR 01/2019. Due to side effects (rash, fatigue, pleural effusions, nausea), she was dose reduced from 100 mg to 70 mg 09/2019. Given risk of low dose of TKI promoting resistance she stopped dasatinib on 04/29/2021. Has continued to do well off Dasatinib. PCRs have been undetectable. -Recent outside labs reviewed. Last BCR ABL PCR was <0.0032% on 07/28/23. CBC stable as well -For now we can continue to hold Dasatinib and will continue to check the PCR every 3 months. -Reviewed that the PCR needs to remain less than 0.1% to continue holding Dasatinib. -RTC in 6 months with BCR/ABL PCR prior to visit. - While she has had side effects with other TKIs, we discussed that Asciminib could be a viable option for her in future should she lose MMR Bilateral pleural effusions: CXR on 01/09/20 with small bilateral pleural effusions. No current symptoms. Elevated creatinine: Normal on 01/27/22. Maintaining adequate hydration and reports home blood pressure monitoring with values indicating controlled hypertension. Advised continued follow up with PCP and that she should specifically ask the to measure her urine protein levels to assess for end organ damage as well as possible glomerular etiologies of impaired renal function. - SCr was 0.96 on most recent labs Health Maintenance: Advised regular PCP follow up. Return in about 3 months (around 12/29/2023) for Dr. Steiner. Oncology History Overview Note RECENT P210 BCR-ABL (%IS) CML (chronic myelocytic leukemia) 09/14/2006 Initial Diagnosis CML with t(9;22:19): Sokal intermediate 09/15/2006 - Chemotherapy Imatinib 400 mg daily 06/06/2013 - Cancer Staged PCR 0.198% IS 01/02/2014 - Cancer Staged PB PCR for BCR-ABL 0.0240% IS [MMR] 08/28/2014 - Cancer Staged PB PCR: 0.0818% IS [MMR] 06/02/2016 - Cancer Staged PB PCR: 0.000 12/29/2016 - Cancer Staged PB PCR: 02/01/2018 - Cancer Staged PB PCR: 08/15/2018 - Cancer Staged PB PCR: 2.9269 01/30/2019 - Cancer Staged PB PCR for bcr-abl: <0.0032 06/25/2019 - Cancer Staged PB PCR for bcr-abl: <0.0032 09/16/2019 - Cancer Staged PB PCR for bcr-abl: <0.0032 Chemotherapy Dose-reduced Dasatinib to 70mg. INTERVAL HISTORY Ms. Almonte is a 63 y.o. female diagnosed with CML, currently off dasatinib with undetectable BCR/ABL1 PCR. She reports feeling well overall today. Continues to do well off therapy with improved energy. In the interim, she was blessed with a grandchild and is very excited about this. Shares that last winter she changed her diet and her bowel movements have significantly improved. She currently has no nausea, no vomiting, no diarrhea, no edema, no rash, no musculoskeletal pain, no dyspnea, no bleeding, no bruising, no fevers, and yes fatigue. No additional new medical issues have arisen since her most recent visit. No early satiety. REVIEW OF SYSTEMS A 12 point review of systems was performed and was negative except those areas included within the interim history. PHYSICAL EXAM (limited due to video visit) Performance status: Karnofsky scale 100 (ECOG grade 0) No limitations Vitals: 09/28/23 0952 BP: 129/60 Pulse: 60 Resp: 18 Temp: 97.4 degrees F (36.3 degrees C) TempSrc: Oral SpO2: 100% Weight: 65 kg (143 lb 6.4 oz) General: Ambulatory, conversational, no apparent distress. Vital signs: Reviewed and stable. Skin: Skin color, texture, turgor normal. No lesions. Eyes: PERRL, no scleral icterus or erythema. Oropharynx: No erythema, exudates, or lesions. Moist mucous membranes. Hematologic/Lymphatic: No cervical, axillary, or supraclavicular adenopathy. Respiratory: normal WOB, CTAB, no respiratory distress Cardiovascular: Regular rate and rhythm, no murmurs, clicks, or gallops. No edema. Abdomen: Abdomen soft, non-tender. Normoactive bowel sounds. No masses or organomegaly. Extremities: No cyanosis or clubbing. No calf tenderness. Neurological: Normal without gross sensory, strength, or cerebellar deficits. Psych: alert and oriented x 3, interactive MEDICATIONS Current Outpatient Medications Medication Sig amphetamine-dextroamphetamine 5 MG Tab Take 1 tablet by mouth daily as needed. atenolol 25 MG Tab Take 1 tablet by mouth daily. indapamide 1.25 MG tablet Take 2 tablets by mouth daily. irbesartan 150 MG tablet TAKE 1 TABLET BY MOUTH EVERY DAY WITH SUPPER levothyroxine 100 MCG tablet 1 tablet. Requested Prescriptions No prescriptions requested or ordered in this encounter DATA Results for orders placed or performed in visit on 08/10/18 BCR/ABL, T(9;22), QUANT Result Value Ref Range BCR specimen description Peripheral blood BCR-ABL1 P190 transcript Not Indicated BCR-ABL1 P210 transcript DETECTED % BCR-ABL1/ABL1 ratio 2.9269 % BCR Interpretation The P210 BCR-ABL1 fusion transcript is detected by reverse hydro plant technician PCR. BCR Comment Methodology/Limitations: BCR Reviewed by Michelet Brito M.D. HEPATIC FUNCTION PANEL Result Value Ref Range AST 15 14 - 40 U/L ALT 13 9 - 48 U/L ALKALINE PHOSPHATASE 108 32 - 126 U/L Albumin 4.4 3.5 - 5.0 g/dL BILIRUBIN, DIRECT 0.1 <0.3 mg/dL BILIRUBIN, TOTAL 0.3 <1.5 mg/dL PROTEIN, TOTAL 7.2 6.4 - 8.3 g/dL BMP WITHOUT GLUCOSE Result Value Ref Range BUN 21 7 - 22 mg/dL CREATININE SERUM 0.78 0.50 - 1.20 mg/dL SODIUM 140 133 - 143 mmol/L POTASSIUM 4.3 3.5 - 5.0 mmol/L CHLORIDE 101 98 - 108 mmol/L CARBON DIOXIDE (CO2) 31 (H) 22 - 30 mmol/L CALCIUM 10.4 8.6 - 10.5 mg/dL ANION GAP 12 7 - 17 mmol/L ESTIMATED GFR, NON AMER >60 >60 mL/min/1.73sqM ESTIMATED GFR, >60 >60 mL/min/1.73sqM CBC, EDIF, PLATELET Result Value Ref Range WBC (WHITE BLOOD COUNT) 5.95 3.99 - 11.19 K/uL RBC 4.59 3.91 - 5.04 M/uL HEMOGLOBIN (HGB) 13.3 11.4 - 15.2 g/dL HEMATOCRIT (HCT) 40.6 34.9 - 44.3 % MEAN CELL VOLUME 88.5 79.6 - 97.7 fL Mean Cell HGB 29.0 25.9 - 33.9 pg MEAN CELL HGB CONCENTRATION 32.8 31.4 - 35.9 g/dL RBC DISTRIBUTION 13.2 10.8 - 14.9 % PLATELET COUNT 291 150 - 393 K/uL MEAN PLATELET VOLUME 10.7 8.5 - 12.2 fL RBC, NUCLEATED 0.0 0.0 - 0.2 /100 WBC DIFFERENTIAL TYPE Electronic Differential IMMATURE GRANS% 0.3 % NEUTROPHIL % 55.4 % LYMPHOCYTES % 32.8 % MONOCYTE % 8.6 % EOSINOPHIL % 2.2 % BASOPHIL % 0.7 % IMMATURE GRANS ABSOLUTE <0.04 0.00 - 0.08 K/uL SEGS + Bands, Absolute 3.30 1.64 - 7.28 K/uL LYMPHOCYTES, ABSOLUTE 1.95 1.16 - 3.51 K/uL MONOCYTES, ABSOLUTE 0.51 0.22 - 0.87 K/uL EOSINOPHILS, ABSOLUTE 0.13 0.00 - 0.42 K/uL BASOPHILS, ABSOLUTE 0.04 0.00 - 0.15 K/uL Return in about 3 months (around 12/29/2023) for Dr. Steiner. We encouraged her to contact the clinic with any questions or concerns. Ms. Almonte understands and agrees to the plan. Documented by Madhav Castellanos, for Dr. Maribeth Steiner All medical record entries made by the Emanuel were at my direction and personally dictated by me, Dr. Maribeth Steiner MD. I have reviewed the chart and agree that the record accurately reflects my personal performance of the history, physical exam, assessment and plan. I have also personally directed, reviewed, and agree with the discharge instructions. Maribeth Steiner MD Infection Control Coordinator of Internal Medicine Division of Hematology Infection Control Coordinator of Biomedical Informatics [facility] documented in this encounter [facility] 09-28-2023 Instructions Roxi Crabtree RN - 09/28/2023 10:00 AM EDT Primary Team Dr. Maribeth Avilez, CARLOINA Christine RN Jahnna Lydic, PCRM [phone] Contact numbers Clinic phone: [phone] 8am-5pm (after hours please listen carefully and follow prompts) Clinic fax: [phone] Medication refills: Please allow 1 week for all chemo and pain medication refills. ( Dr. Steiner is only in clinic on ) Please allow 5 days for all other refills. Paperwork Please allow 2 weeks to complete paperwork. (i.e. Disability, FMLA, etc) Please call with the following: Fever > 100.5 or other signs or symptoms of infection Active bleeding Shortness of breath, dizziness or extreme fatigue Nausea & vomiting - unable to keep fluids or meds down Diarrhea - 3-5 watery stools/day New onset or re-occuring rash Uncontrolled pain Medication management questions Any other questions or concerns. documented in this encounter [facility] 02-09-2023 History of Presen t illness Narrative HEMATOLOGY CLINIC NOTE 02/09/2023 No chief complaint on file. ASSESSMENT AND PLAN Ms. Almonte is a 63 y.o. female with a history of CML here today for ongoing follow up and treatment plans. CML: Attempted TKI cessation of Gleevec 02/2018. Upon PCR rise 07/2018, dasatinib was started 08/2018. Back in MMR 01/2019. Due to side effects (rash, fatigue, pleural effusions, nausea), she was dose reduced from 100 mg to 70 mg 09/2019. Given risk of lose dose of TKI promoting resistance she stopped dasatinib on 04/29/2021. Has continued to do well off Dasatinib. PCRs have been undetectable. -Recent outside labs reviewed. Last BCR ABL PCR was <0.0032% on 01/23. CBC stable as well -For now we can continue to hold Dasatinib and will continue to check the PCR every 3 months. -Reviewed that the PCR needs to remain less than 0.1% to continue holding Dasatinib. -RTC in 6 months with BCR/ABL PCR prior to visit. Will see Dr. Steiner at next visit Bilateral pleural effusions: CXR on 01/09/20 with small bilateral pleural effusions. No current symptoms. Elevated creatinine: Normal on 01/27/22. Maintaining adequate hydration and reports home blood pressure monitoring with values indicating controlled hypertension. Advised continued follow up with PCP and that she should specifically ask the to measure her urine protein levels to assess for end organ damage as well as possible glomerular etiologies of impaired renal function. - SCr is was 1.16 on most recent labs Health Maintenance: Advised regular PCP follow up. RTC in 6 months. Oncology History Overview Note RECENT P210 BCR-ABL (%IS) CML (chronic myelocytic leukemia) 09/14/2006 Initial Diagnosis CML with t(9;22:19): Sokal intermediate 09/15/2006 - Chemotherapy Imatinib 400 mg daily 06/06/2013 - Cancer Staged PCR 0.198% IS 01/02/2014 - Cancer Staged PB PCR for BCR-ABL 0.0240% IS [MMR] 08/28/2014 - Cancer Staged PB PCR: 0.0818% IS [MMR] 06/02/2016 - Cancer Staged PB PCR: 0.000 12/29/2016 - Cancer Staged PB PCR: 02/01/2018 - Cancer Staged PB PCR: 08/15/2018 - Cancer Staged PB PCR: 2.9269 01/30/2019 - Cancer Staged PB PCR for bcr-abl: <0.0032 06/25/2019 - Cancer Staged PB PCR for bcr-abl: <0.0032 09/16/2019 - Cancer Staged PB PCR for bcr-abl: <0.0032 Chemotherapy Dose-reduced Dasatinib to 70mg. INTERVAL HISTORY Ms. Almonte is a 63 y.o. female diagnosed with CML, currently off dasatinib with undetectable BCR/ABL1 PCR. Continues to do well off therapy with improved energy. She shares that her was recently diagnosed with an unspecified Lymphoma. She currently has no nausea, no vomiting, no diarrhea, no edema, no rash, no musculoskeletal pain, no dyspnea, no bleeding, no bruising, no fevers, and yes fatigue. No additional new medical issues have arisen since her most recent visit. REVIEW OF SYSTEMS A 12 point review of systems was performed and was negative except those areas included within the interim history. PHYSICAL EXAM (limited due to video visit) Performance status: Karnofsky scale 100 (ECOG grade 0) No limitations Vitals: 02/09/23 0906 BP: 113/72 Pulse: 75 Resp: 18 Temp: 98 degrees F (36.7 degrees C) TempSrc: Oral SpO2: 98% Weight: 72.2 kg (159 lb 3.2 oz) General: Ambulatory, conversational, no apparent distress. Vital signs: Reviewed and stable. Skin: Skin color, texture, turgor normal. No lesions. Eyes: PERRL, no scleral icterus or erythema. Oropharynx: No erythema, exudates, or lesions. Moist mucous membranes. Hematologic/Lymphatic: No cervical, axillary, or supraclavicular adenopathy. Respiratory: normal WOB, CTAB, no respiratory distress Cardiovascular: Regular rate and rhythm, no murmurs, clicks, or gallops. No edema. Abdomen: Abdomen soft, non-tender. Normoactive bowel sounds. No masses or organomegaly. Extremities: No cyanosis or clubbing. No calf tenderness. Neurological: Normal without gross sensory, strength, or cerebellar deficits. Psych: alert and oriented x 3, interactive MEDICATIONS Current Outpatient Medications Medication Sig amphetamine-dextroamphetamine 5 MG Tab Take 1 tablet by mouth daily as needed. atenolol 25 MG Tab Take 1 tablet by mouth daily. indapamide 1.25 MG tablet Take 2 tablets by mouth daily. irbesartan 150 MG tablet TAKE 1 TABLET BY MOUTH EVERY DAY WITH SUPPER levothyroxine 100 MCG tablet 1 tablet. Requested Prescriptions No prescriptions requested or ordered in this encounter DATA Results for orders placed or performed in visit on 08/10/18 BCR/ABL, T(9;22), QUANT Result Value Ref Range BCR specimen description Peripheral blood BCR-ABL1 P190 transcript Not Indicated BCR-ABL1 P210 transcript DETECTED % BCR-ABL1/ABL1 ratio 2.9269 % BCR Interpretation The P210 BCR-ABL1 fusion transcript is detected by reverse hydro plant technician PCR. BCR Comment Methodology/Limitations: BCR Reviewed by Michelet M. Brito, M.D. HEPATIC FUNCTION PANEL Result Value Ref Range AST 15 14 - 40 U/L ALT 13 9 - 48 U/L ALKALINE PHOSPHATASE 108 32 - 126 U/L Albumin 4.4 3.5 - 5.0 g/dL BILIRUBIN, DIRECT 0.1 <0.3 mg/dL BILIRUBIN, TOTAL 0.3 <1.5 mg/dL PROTEIN, TOTAL 7.2 6.4 - 8.3 g/dL BMP WITHOUT GLUCOSE Result Value Ref Range BUN 21 7 - 22 mg/dL CREATININE SERUM 0.78 0.50 - 1.20 mg/dL SODIUM 140 133 - 143 mmol/L POTASSIUM 4.3 3.5 - 5.0 mmol/L CHLORIDE 101 98 - 108 mmol/L CARBON DIOXIDE (CO2) 31 (H) 22 - 30 mmol/L CALCIUM 10.4 8.6 - 10.5 mg/dL ANION GAP 12 7 - 17 mmol/L ESTIMATED GFR, NON AMER >60 >60 mL/min/1.73sqM ESTIMATED GFR, >60 >60 mL/min/1.73sqM CBC, EDIF, PLATELET Result Value Ref Range WBC (WHITE BLOOD COUNT) 5.95 3.99 - 11.19 K/uL RBC 4.59 3.91 - 5.04 M/uL HEMOGLOBIN (HGB) 13.3 11.4 - 15.2 g/dL HEMATOCRIT (HCT) 40.6 34.9 - 44.3 % MEAN CELL VOLUME 88.5 79.6 - 97.7 fL Mean Cell HGB 29.0 25.9 - 33.9 pg MEAN CELL HGB CONCENTRATION 32.8 31.4 - 35.9 g/dL RBC DISTRIBUTION 13.2 10.8 - 14.9 % PLATELET COUNT 291 150 - 393 K/uL MEAN PLATELET VOLUME 10.7 8.5 - 12.2 fL RBC, NUCLEATED 0.0 0.0 - 0.2 /100 WBC DIFFERENTIAL TYPE Electronic Differential IMMATURE GRANS% 0.3 % NEUTROPHIL % 55.4 % LYMPHOCYTES % 32.8 % MONOCYTE % 8.6 % EOSINOPHIL % 2.2 % BASOPHIL % 0.7 % IMMATURE GRANS ABSOLUTE <0.04 0.00 - 0.08 K/uL SEGS + Bands, Absolute 3.30 1.64 - 7.28 K/uL LYMPHOCYTES, ABSOLUTE 1.95 1.16 - 3.51 K/uL MONOCYTES, ABSOLUTE 0.51 0.22 - 0.87 K/uL EOSINOPHILS, ABSOLUTE 0.13 0.00 - 0.42 K/uL BASOPHILS, ABSOLUTE 0.04 0.00 - 0.15 K/uL CAYLA Long Pager #[phone] documented in this encounter [facility] 10-20-2022 History of Presen t illness Narrative HEMATOLOGY CLINIC NOTE 10/20/2022 Chief Complaint Patient presents with Follow-up CML ASSESSMENT AND PLAN Ms. Almonte is a 62 y.o. female with a history of CML here today for ongoing follow up and treatment plans. CML: Attempted TKI cessation of Gleevec 02/2018. Upon PCR rise 07/2018, dasatinib was started 08/2018. Back in MMR 01/2019. Due to side effects (rash, fatigue, pleural effusions, nausea), she was dose reduced from 100 mg to 70 mg 09/2019. Given risk of lose dose of TKI promoting resistance she stopped dasatinib on 04/29/2021. Has continued to do well off Dasatinib. PCRs have been undetectable. -Recent outside labs reviewed. CBC is stable and PCR was undetectable. -For now we can continue to hold Dasatinib and will continue to check the PCR every 3 months. -Reviewed that the PCR needs to remain less than 0.1% to continue holding Dasatinib. -RTC in 6 months with BCR/ABL PCR prior to visit. Bilateral pleural effusions: CXR on 01/09/20 with small bilateral pleural effusions. No current symptoms. Elevated creatinine: Normal on 01/27/22. Maintaining adequate hydration and reports home blood pressure monitoring with values indicating controlled hypertension. Advised continued follow up with PCP and that she should specifically ask the to measure her urine protein levels to assess for end organ damage as well as possible glomerular etiologies of impaired renal function. Health Maintenance: Advised regular PCP follow up. RTC in 6 months. Oncology History Overview Note RECENT P210 BCR-ABL (%IS) CML (chronic myelocytic leukemia) 09/14/2006 Initial Diagnosis CML with t(9;22:19): Sokal intermediate 09/15/2006 - Chemotherapy Imatinib 400 mg daily 06/06/2013 - Cancer Staged PCR 0.198% IS 01/02/2014 - Cancer Staged PB PCR for BCR-ABL 0.0240% IS [MMR] 08/28/2014 - Cancer Staged PB PCR: 0.0818% IS [MMR] 06/02/2016 - Cancer Staged PB PCR: 0.000 12/29/2016 - Cancer Staged PB PCR: 02/01/2018 - Cancer Staged PB PCR: 08/15/2018 - Cancer Staged PB PCR: 2.9269 01/30/2019 - Cancer Staged PB PCR for bcr-abl: <0.0032 06/25/2019 - Cancer Staged PB PCR for bcr-abl: <0.0032 09/16/2019 - Cancer Staged PB PCR for bcr-abl: <0.0032 Chemotherapy Dose-reduced Dasatinib to 70mg. INTERVAL HISTORY Ms. Almonte is a 62 y.o. female diagnosed with CML, currently off dasatinib with undetectable BCR/ABL1 PCR. Continues to do well off therapy with improved energy. She shares that her was recently diagnosed with an unspecified Lymphoma. She currently has no nausea, no vomiting, no diarrhea, no edema, no rash, no musculoskeletal pain, no dyspnea, no bleeding, no bruising, no fevers, and yes fatigue. No additional new medical issues have arisen since her most recent visit. REVIEW OF SYSTEMS A 12 point review of systems was performed and was negative except those areas included within the interim history. PHYSICAL EXAM (limited due to video visit) Performance status: Karnofsky scale 100 (ECOG grade 0) No limitations Vitals: 10/20/22 0959 BP: 144/74 Pulse: 76 Resp: 20 Temp: 98 degrees F (36.7 degrees C) TempSrc: Oral SpO2: 98% Weight: 71.1 kg (156 lb 12.8 oz) General: Ambulatory, conversational, no apparent distress. Vital signs: Reviewed and stable. Skin: Skin color, texture, turgor normal. No lesions. Eyes: PERRL, no scleral icterus or erythema. Oropharynx: No erythema, exudates, or lesions. Moist mucous membranes. Hematologic/Lymphatic: No cervical, axillary, or supraclavicular adenopathy. Respiratory: normal WOB, CTAB, no respiratory distress Cardiovascular: Regular rate and rhythm, no murmurs, clicks, or gallops. No edema. Abdomen: Abdomen soft, non-tender. Normoactive bowel sounds. No masses or organomegaly. Extremities: No cyanosis or clubbing. No calf tenderness. Neurological: Normal without gross sensory, strength, or cerebellar deficits. Psych: alert and oriented x 3, interactive MEDICATIONS Current Outpatient Medications Medication Sig amphetamine-dextroamphetamine 5 MG Tab Take 1 tablet by mouth daily as needed. atenolol 25 MG Tab Take 1 tablet by mouth daily. indapamide 1.25 MG tablet Take 2 tablets by mouth daily. irbesartan 150 MG tablet TAKE 1 TABLET BY MOUTH EVERY DAY WITH SUPPER levothyroxine 100 MCG tablet 1 tablet. Requested Prescriptions No prescriptions requested or ordered in this encounter DATA Results for orders placed or performed in visit on 08/10/18 BCR/ABL, T(9;22), QUANT Result Value Ref Range BCR specimen description Peripheral blood BCR-ABL1 P190 transcript Not Indicated BCR-ABL1 P210 transcript DETECTED % BCR-ABL1/ABL1 ratio 2.9269 % BCR Interpretation The P210 BCR-ABL1 fusion transcript is detected by reverse hydro plant technician PCR. BCR Comment Methodology/Limitations: BCR Reviewed by Michelet Brito M.D. HEPATIC FUNCTION PANEL Result Value Ref Range AST 15 14 - 40 U/L ALT 13 9 - 48 U/L ALKALINE PHOSPHATASE 108 32 - 126 U/L Albumin 4.4 3.5 - 5.0 g/dL BILIRUBIN, DIRECT 0.1 <0.3 mg/dL BILIRUBIN, TOTAL 0.3 <1.5 mg/dL PROTEIN, TOTAL 7.2 6.4 - 8.3 g/dL BMP WITHOUT GLUCOSE Result Value Ref Range BUN 21 7 - 22 mg/dL CREATININE SERUM 0.78 0.50 - 1.20 mg/dL SODIUM 140 133 - 143 mmol/L POTASSIUM 4.3 3.5 - 5.0 mmol/L CHLORIDE 101 98 - 108 mmol/L CARBON DIOXIDE (CO2) 31 (H) 22 - 30 mmol/L CALCIUM 10.4 8.6 - 10.5 mg/dL ANION GAP 12 7 - 17 mmol/L ESTIMATED GFR, NON AMER >60 >60 mL/min/1.73sqM ESTIMATED GFR, >60 >60 mL/min/1.73sqM CBC, EDIF, PLATELET Result Value Ref Range WBC (WHITE BLOOD COUNT) 5.95 3.99 - 11.19 K/uL RBC 4.59 3.91 - 5.04 M/uL HEMOGLOBIN (HGB) 13.3 11.4 - 15.2 g/dL HEMATOCRIT (HCT) 40.6 34.9 - 44.3 % MEAN CELL VOLUME 88.5 79.6 - 97.7 fL Mean Cell HGB 29.0 25.9 - 33.9 pg MEAN CELL HGB CONCENTRATION 32.8 31.4 - 35.9 g/dL RBC DISTRIBUTION 13.2 10.8 - 14.9 % PLATELET COUNT 291 150 - 393 K/uL MEAN PLATELET VOLUME 10.7 8.5 - 12.2 fL RBC, NUCLEATED 0.0 0.0 - 0.2 /100 WBC DIFFERENTIAL TYPE Electronic Differential IMMATURE GRANS% 0.3 % NEUTROPHIL % 55.4 % LYMPHOCYTES % 32.8 % MONOCYTE % 8.6 % EOSINOPHIL % 2.2 % BASOPHIL % 0.7 % IMMATURE GRANS ABSOLUTE <0.04 0.00 - 0.08 K/uL SEGS + Bands, Absolute 3.30 1.64 - 7.28 K/uL LYMPHOCYTES, ABSOLUTE 1.95 1.16 - 3.51 K/uL MONOCYTES, ABSOLUTE 0.51 0.22 - 0.87 K/uL EOSINOPHILS, ABSOLUTE 0.13 0.00 - 0.42 K/uL BASOPHILS, ABSOLUTE 0.04 0.00 - 0.15 K/uL Nba Rodriguez MD, PhD Hematology and Medical Oncology Fellow, PGY-5 Pager: [phone] I discussed this patient's case with the fellow Dr. Nba Rodriguez MD, PhD, and I have independently interviewed and examined the patient. This note reflects my interaction with the patient on the same date as the fellow note. I reviewed the fellow's note and agree with what has been documented with the following additions and/or clarifications, if any. I personally directed the patient's care and counseling. Ms. Franci Almonte is a 62 y.o. female diagnosed with CML, currently off dasatinib with undetectable BCR::ABL1 PCR. She is present today for a follow up and evaluation with her . Since last visit, she has been well. Her energy is great with no major concerns. On physical exam, Patient was AO, Breath sounds were adequate on both sides, Cardiac exam was not concerning for abnormal rhythm or murmurs, No concerning new LAD, Abdominal exam was normal wo any tenderness or swelling or pain, No gross neurological problems were noticed Outside labs reviewed, her counts are stable. Her PCR is undetectable. Discussed that if PCR rises we will consider resuming dasatinib vs switching to another TKI but for now we will continue to hold it. Check PCR in 3 months prior to visit. RTC in 3-4 months with PCR prior Return in about 4 months (around 02/19/2023) for Dr. Steiner. Documented by Norm Castellanos for Dr. Maribeth Steiner on 10/20/2022 10:33 AM. All medical record entries made by the Norm Castellanos, were at my direction and personally dictated by me, Maribeth Steiner. I have reviewed the chart and agree that the record accurately reflects my personal performance of the history, physical exam, assessment and plan. I have also personally directed, reviewed, and agree with the discharge instructions. Maribeth Steiner MD Infection Control Coordinator of Internal Medicine Division of Hematology Infection Control Coordinator of Biomedical Informatics [facility] documented in this encounter [facility] 10-20-2022 Instructions Roxi Crabtree RN - 10/20/2022 10:20 AM EDT Primary Team CHEO Serrano RN Nicole Bortel, RN Contact numbers Clinic phone: [phone] 8am-5pm (after hours please listen carefully and follow prompts) Clinic fax: [phone] Medication refills: Please allow 1 week for all chemo and pain medication refills. ( Dr. Steiner is only in clinic on ) Please allow 5 days for all other refills. Paperwork Please allow 2 weeks to complete paperwork. (i.e. Disability, FMLA, etc) Please call with the following: Fever > 100.5 or other signs or symptoms of infection Active bleeding Shortness of breath, dizziness or extreme fatigue Nausea & vomiting - unable to keep fluids or meds down Diarrhea - 3-5 watery stools/day New onset or re-occuring rash Uncontrolled pain Medication management questions Any other questions or concerns. documented in this encounter [facility] 10-21-2021 History of Presen t illness Narrative I discussed this patient's case with the fellow Dr. Nba Rodriguez MD/PhD, and I have independently interviewed and examined the patient. This note reflects my interaction with the patient on the same date as the fellow note. I reviewed the fellow's note and agree with what has been documented with the following additions and/or clarifications, if any. I personally directed the patient's care and counseling. Ms. Franci Almonte is a 61 y.o. female with a history of CML, currently on observation (stopped dasatinib 04/29/21 per patient preference). She presents today for follow-up and evaluation. Since her last visit, she shares that she has been doing well. She denies any fevers, chills, night sweats, recent infections, unintentional weight loss, or increased lymphadenopathy. Appetite and energy are stable with no early satiety or abdominal pain. She has a baseline level of anxiety related to being off her dasatinib and worry regarding relapse, but is glad to hear her numbers remain below LOD. On physical examination, heart is regular rate and rhythm. Lungs are clear to auscultation bilaterally. Abdomen is soft, nontender, and nondistended. Her counts have continued to remain stable as of 10/20/21, and her PCR was undetectable (<0.0032%) as wel. I recommended that we continue with observation. We discussed that should she start to progress in the future, we will either restart her on dasatinib or consider another TKI. RTC in 3 months. Documented by Thor Castellanos, for Dr. Maribeth Steiner on 10/21/2021 9:31 AM. All medical record entries made by the Thor Castellanos, were at my direction and personally dictated by me, Maribeth Steiner. I have reviewed the chart and agree that the record accurately reflects my personal performance of the history, physical exam, assessment and plan. I have also personally directed, reviewed, and agree with the discharge instructions. Maribeth Steiner MD Infection Control Coordinator of Internal Medicine Division of Hematology Infection Control Coordinator of Biomedical Informatics [facility] ASSESSMENT AND PLAN Ms. Almonte is a 61 y.o. female with a history of CML here today for ongoing follow up and treatment plans. CML: Attempted TKI cessation of Gleevec 02/2018. Upon PCR rise 07/2018, dasatinib was started 08/2018. Back in MMR 01/2019. Due to side effects (rash, fatigue, pleural effusions, nausea), she was dose reduced from 100 mg to 70 mg 09/2019. Given risk of lose dose of TKI promoting resistance she stopped dasatinib on 04/29/2021. Has continued to do well off TKI and reports good energy and feeling much better overall. PCR has remained undetectable while off therapy including level checked on 10/20/21. -Discussed that if PCR rises we will consider resuming dasatinib vs switching to another TKI. -RTC in 3 months with BCR/ABL PCR prior to visit. Bilateral pleural effusions: CXR on 01/09/20 with small bilateral pleural effusions. No current symptoms. Elevated creatinine: maintaining adequate hydration and reports home blood pressure monitoring with values indicating controlled hypertension. Advised continued follow up with PCP and that she should specifically ask the to measure her urine protein levels to assess for end organ damage as well as possible glomerular etiologies of impaired renal function. Health Maintenance: Advised regular PCP follow up. Oncology History Overview Note RECENT P210 BCR-ABL (%IS) CML (chronic myelocytic leukemia) 09/14/2006 Initial Diagnosis CML with t(9;22:19): Sokal intermediate 09/15/2006 - Chemotherapy Imatinib 400 mg daily 06/06/2013 - Cancer Staged PCR 0.198% IS 01/02/2014 - Cancer Staged PB PCR for BCR-ABL 0.0240% IS [MMR] 08/28/2014 - Cancer Staged PB PCR: 0.0818% IS [MMR] 06/02/2016 - Cancer Staged PB PCR: 0.000 12/29/2016 - Cancer Staged PB PCR: 02/01/2018 - Cancer Staged PB PCR: 08/15/2018 - Cancer Staged PB PCR: 2.9269 01/30/2019 - Cancer Staged PB PCR for bcr-abl: <0.0032 06/25/2019 - Cancer Staged PB PCR for bcr-abl: <0.0032 09/16/2019 - Cancer Staged PB PCR for bcr-abl: <0.0032 Chemotherapy Dose-reduced Dasatinib to 70mg. INTERVAL HISTORY Ms. Almonte is a 61 y.o. female diagnosed with CML, currently off dasatinib with undetectable BCR/ABL1 PCR. Continues to do well off therapy with improved energy. Has been enjoying traveling and spending time with friends. She currently has no nausea, no vomiting, no diarrhea, no edema, no rash, no musculoskeletal pain, no dyspnea, no bleeding, no bruising, no fevers, and yes fatigue. No additional new medical issues have arisen since her most recent visit. REVIEW OF SYSTEMS A 12 point review of systems was performed and was negative except those areas included within the interim history. PHYSICAL EXAM (limited due to video visit) Performance status: Karnofsky scale 100 (ECOG grade 0) No limitations Vitals: 10/21/21 0840 BP: 140/77 Pulse: 72 Resp: 18 Temp: 97.6 degrees F (36.4 degrees C) TempSrc: Oral SpO2: 99% Weight: 71.3 kg (157 lb 3.2 oz) General: Ambulatory, conversational, no apparent distress. Vital signs: Reviewed and stable. Skin: Skin color, texture, turgor normal. No lesions. Eyes: PERRL, no scleral icterus or erythema. Oropharynx: No erythema, exudates, or lesions. Moist mucous membranes. Hematologic/Lymphatic: No cervical, axillary, or supraclavicular adenopathy. Respiratory: normal WOB, CTAB, no respiratory distress Cardiovascular: Regular rate and rhythm, no murmurs, clicks, or gallops. No edema. Abdomen: Abdomen soft, non-tender. Normoactive bowel sounds. No masses or organomegaly. Extremities: No cyanosis or clubbing. No calf tenderness. Neurological: Normal without gross sensory, strength, or cerebellar deficits. Psych: alert and oriented x 3, interactive MEDICATIONS Current Outpatient Medications Medication Sig amphetamine-dextroamphetamine 5 MG Tab take 5 mg by mouth daily as needed.. atenolol 25 MG Tab Take 25 mg by mouth daily. indapamide 1.25 MG tablet Take 2.5 mg by mouth daily as needed. irbesartan 150 MG tablet TAKE 1 TABLET BY MOUTH EVERY DAY WITH SUPPER levothyroxine 100 MCG tablet 88 mcg. dasatinib 70 MG tablet Take 1 tablet by mouth daily. Take with or without food (Patient not taking: Reported on 10/21/2021) ondansetron 4 MG tablet Take 1 tablet by mouth every 12 hours as needed for nausea or vomiting. Requested Prescriptions No prescriptions requested or ordered in this encounter DATA Local labs reviewed 03/17/21 BUN/creatinine 17/03.3 03/17/21 BCR/ABL PCR <0.0032 03/17/21 WBC 5.2, Hgb 12.5, Plt 326K Results for orders placed or performed in visit on 08/10/18 BCR/ABL, T(9;22), QUANT Result Value Ref Range BCR specimen description Peripheral blood BCR-ABL1 P190 transcript Not Indicated BCR-ABL1 P210 transcript DETECTED % BCR-ABL1/ABL1 ratio 2.9269 % BCR Interpretation The P210 BCR-ABL1 fusion transcript is detected by reverse hydro plant technician PCR. BCR Comment Methodology/Limitations: BCR Reviewed by Michelet Brito M.D. HEPATIC FUNCTION PANEL Result Value Ref Range AST 15 14 - 40 U/L ALT 13 9 - 48 U/L ALKALINE PHOSPHATASE 108 32 - 126 U/L Albumin 4.4 3.5 - 5.0 g/dL BILIRUBIN, DIRECT 0.1 <0.3 mg/dL BILIRUBIN, TOTAL 0.3 <1.5 mg/dL PROTEIN, TOTAL 7.2 6.4 - 8.3 g/dL BMP WITHOUT GLUCOSE Result Value Ref Range BUN 21 7 - 22 mg/dL CREATININE SERUM 0.78 0.50 - 1.20 mg/dL SODIUM 140 133 - 143 mmol/L POTASSIUM 4.3 3.5 - 5.0 mmol/L CHLORIDE 101 98 - 108 mmol/L CARBON DIOXIDE (CO2) 31 (H) 22 - 30 mmol/L CALCIUM 10.4 8.6 - 10.5 mg/dL ANION GAP 12 7 - 17 mmol/L ESTIMATED GFR, NON AMER >60 >60 mL/min/1.73sqM ESTIMATED GFR, >60 >60 mL/min/1.73sqM CBC, EDIF, PLATELET Result Value Ref Range WBC (WHITE BLOOD COUNT) 5.95 3.99 - 11.19 K/uL RBC 4.59 3.91 - 5.04 M/uL HEMOGLOBIN (HGB) 13.3 11.4 - 15.2 g/dL HEMATOCRIT (HCT) 40.6 34.9 - 44.3 % MEAN CELL VOLUME 88.5 79.6 - 97.7 fL Mean Cell HGB 29.0 25.9 - 33.9 pg MEAN CELL HGB CONCENTRATION 32.8 31.4 - 35.9 g/dL RBC DISTRIBUTION 13.2 10.8 - 14.9 % PLATELET COUNT 291 150 - 393 K/uL MEAN PLATELET VOLUME 10.7 8.5 - 12.2 fL RBC, NUCLEATED 0.0 0.0 - 0.2 /100 WBC DIFFERENTIAL TYPE Electronic Differential IMMATURE GRANS% 0.3 % NEUTROPHIL % 55.4 % LYMPHOCYTES % 32.8 % MONOCYTE % 8.6 % EOSINOPHIL % 2.2 % BASOPHIL % 0.7 % IMMATURE GRANS ABSOLUTE <0.04 0.00 - 0.08 K/uL SEGS + Bands, Absolute 3.30 1.64 - 7.28 K/uL LYMPHOCYTES, ABSOLUTE 1.95 1.16 - 3.51 K/uL MONOCYTES, ABSOLUTE 0.51 0.22 - 0.87 K/uL EOSINOPHILS, ABSOLUTE 0.13 0.00 - 0.42 K/uL BASOPHILS, ABSOLUTE 0.04 0.00 - 0.15 K/uL Nba Rodriguez MD, PhD Hematology and Medical Oncology Fellow, PGY-4 Pager: [phone] documented in this encounter [facility] 10-21-2021 Instructions Roxi Crabtree RN - 10/21/2021 9:00 AM EDT Primary Team Dr. Maribeth Crabtree, RN Betty Lindsey RN Contact numbers Clinic phone: [phone] 8am-5pm (after hours please listen carefully and follow prompts) Clinic fax: [phone] Medication refills: Please allow 1 week for all chemo and pain medication refills. ( Dr. Steiner is only in clinic on ) Please allow 5 days for all other refills. Paperwork Please allow 2 weeks to complete paperwork. (i.e. Disability, FMLA, etc) Please call with the following: Fever > 100.5 or other signs or symptoms of infection Active bleeding Shortness of breath, dizziness or extreme fatigue Nausea & vomiting - unable to keep fluids or meds down Diarrhea - 3-5 watery stools/day New onset or re-occuring rash Uncontrolled pain Medication management questions Any other questions or concerns . documented in this encounter [facility] Evaluation note No assessment inform ation available [facility] Work Phone: Evaluation note Diagnosis CML (chronic myelocytic leukemia)- Primary Chronic myeloid leukemia, without mention of having achieved remission [facility] (chronic myelocytic leukemia)- Primary Chronic myeloid leukemia, without mention of having achieved remission [facility] Diagnosis CML with t(9;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, without mention of having achieved remission CML with t(9;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, without mention of having achieved remission CML with t(9;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, without mention of having achieved remission CML with t(9;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 Chronic myeloid leukemia, without mention of having achieved remission CML with t(9;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 Chronic myeloid leukemia, without mention of having achieved remission CML with t(9;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, without mention of having achieved remission CML with t(9;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 Chronic myeloid leukemia, without mention of having achieved remission CML with t(9;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 Chronic myeloid leukemia, without mention of having achieved remission CP-CML; CML with t(9;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, without mention of having achieved remission CML with t(9;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 Chronic myeloid leukemia, without mention of having achieved remission CML with t(9;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 Chronic myeloid leukemia, without mention of having achieved remission CML with t(9;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 Chronic myeloid leukemia, without mention of having achieved remission CP-CML Chronic myeloid leukemia, without mention of having achieved remission CML (chronic myelocytic leukemia)- Primary Chronic myeloid leukemia, without mention of having achieved remission [facility]ative[facility]No reason for referral information availableWSCCI [facility] Work Phone: Summary Purpose Family History No Family History Records Found Relationship Condition Age at Onset Recorded Date/T romero mother Hypertension Unknown father Malignant neoplasm Unknown Advance Directives No Advanced Directives Records Found Advance Directive Response Recorded Date/ Time Living Will No January 03 1:21pm Power of Program Director/Traffic Director No 2020 1:21pm Advance Directive Response Recorded Date/ Time Living Will No January 03 12:21pm Power of Program Director/Traffic Director No 2020 12:21pm Advance Directive Response Recorded Date/ Time Living Will No January 27 6:03am Do you have a Healthcare Power of Program Director/Traffic Director? No January 28, 2024 6:03am Chief Complaint and Reason for Visit Chief Complaint MONTHLY LAB Dorsalgia/ BACK PAIN MONTHLY LAB Chief Complaint Dorsalgia/ BACK PAIN MONTHLY LAB Chief Complaint MONTHLY LAB SCREENING Chief Complaint SCREENING S/O- MONTHLY- ADD EOAPRYLER 10/05/21 Chief Complaint S/O- MONTHLY- ADD EO RDER Chief Complaint S/O- MONTHLY- ADD AD DT ORDER DR.SMITH MITCH Chief Complaint EORDER S/O- MONTHLY Chief Complaint Admit Date S/O- MONTHLY- COPY PCP- EORDERS DR.SMITH PATEL July 24, 2024 10:39am Chief Complaint Admit Date S/O- MONTHLY- COPY PCP- EORDERS DR.SMITH PATEL July 24, 2024 10:39am RISK>10%/ HYPERLIPIDEMIA LDL GOAL<130 Ju 2024 7:42am CT CALCIUM SCORING August 07, 2024 7:44 am R91.8 Other nonspecific abnormal finding of lung f September 04, 2024 1:11pm Additional Source Comments INFORMATION SOURCE (unrecogn ized section and content) DATE CREATED AUTHOR [facility]/22/2017 [facility] DATE CREATED AUTHOR AUTHOR'S ORGANIZ ATION 10/11/2017 [facility] DATE CREATED AUTHOR AUTHOR'S ORGANIZ ATION 05/12/2018 [facility] DATE CREATED AUTHOR AUTHOR'S ORGANIZ ATION 03/18/2024 [facility] DATE CREATED AUTHOR AUTHOR'S ORGANIZ ATION 09/19/2024 [facility] Goals (unrecognized section and content) Goals may be documented in a n alternate sectionGoals may be documented in an alternate sectionGoals may be documented in an alternate sectionGoals may be documented in an alternate sectionGoals may be documented in an alternate sectionGoals may be documented in an alternate sectionGoals may be documented in an alternate sectionGoals may be documented in an alternate sectionGoals may be documented in an alternate section Reason for Visit (unrecogniz ed section and content) Reason Comments Follow-up CML Reason Comments Follow-up Reason Onset Date Comments Information Update 07/10/2024 Care Teams (unrecognized sec tion and content) [employer] Relationship Specialty Start Date End Date Shae Cota MD [address] [place], [place] [address] PCP - General Family Medicine 10/18/18 Maribeth Steiner MD [address] [place] [address] Oncologist Hematology 11/25/20 Team Status: Active Member Role Status Dates Dr. Shae Cota MD Family Provider Active Dr. Shae Cota MD Primary Care Provider Active Team Status: Inactive Member Role Status Dates Dr. Shae Cota MD Primary Care Provider, Other Provi dominique Active SKINNY OCHOA Attending Provider, Referring Provide r Active RAGHAV TRAORE Other Provider Active [employer] Relationship Specialty Start Date End Date Shae Cota MD [address] [place] [address] PCP - General Family Medicine 10/18/18 Maribeth Steiner MD [address] [place] [phone] Oncologist Hematology 11/25/20 Team Status: Inactive Member Role Status Dates Dr. Shae Cota MD Primary Care Provide r, Attending Provider, Referring Provider Active [employer] Relationship Specialty Start Date End Date Shae Cota MD [address] [place] [address] PCP - General Family Medicine 10/18/18 Maribeth Steiner MD [address] [place] [phone] Oncologist Hematology 11/25/20 [employer] Relationship Specialty Start Date End Date Shae Cota MD [address] [place] [address] PCP - General Family Medicine 10/18/18 Maribeth Steiner MD [address] [place] [phone] Oncologist Hematology 11/25/20 [employer] Art Teacher Relationship Specialty Start Date End Date Shae Cota MD PCP - General Family Medicine 10/18/18 Maribeth Steiner MD [address] [place] [phone] Oncologist Hematology 11/25/20 Team Status: Active Member Role Status Dates Dr. Shae Cota MD Primary Care Provider Active Team Status: Inactive Member Role Status Dates Dr. Shae Cota MD Primary Care Provider Active Start: July 24, 2024 End: July 24, 2024 Dr. Shae Cota MD Other Provider Active Start: July 24, 2024 End: July 24, 2024 RAGHAV TRAORE Attending Provider Active Start: July 24, 2024 End: July 24, 2024 RAGHAV TRAORE Referring Provider Active Start: July 24, 2024 End: July 24, 2024 Team Status: Active Member Role/Relationship Status Dates Dr. Shae Cota MD Primary Care Provider Active Team Status: Inactive Member Role/Relationship Status Dates Dr. Shae Cota MD Primary Care Provider Active Start: July 24, 2024 End: July 24, 2024 Dr. Shae Cota MD Other Provider Active Start: July 24, 2024 End: July 24, 2024 RAGHAV TRAORE Attending Provider Active Start: July 24, 2024 End: July 24, 2024 RAGHAV TRAORE Referring Provider Active Start: July 24, 2024 End: July 24, 2024 Team Status: Active Member Role/Relationship Status Dates Dr. Shae Cota MD Primary Care Provider Active Start: August 07, 2024 Dr. Shae Cota MD Attending Provider Active St art: August 07, 2024 Dr. Shae Cota MD Referring Provider Active St art: August 07, 2024 Team Status: Active Member Role/Relationship Status Dates Dr. Shae Cota MD Primary Care Provider Active Start: August 07, 2024 Dr. Roberto Moore MD Attending Provider Active S tart: August 07, 2024 Dr. Roberto Moore MD Referring Provider Active S tart: August 07, 2024 Team Status: Inactive Member Role/Relationship Status Dates Dr. Shae Cota MD Primary Care Provider Active Start: September 04, 2024 End: September 04, 2024 Dr. Shae Cota MD Attending Provider Active St art: September 04, 2024 End: September 04, 2024 Dr. Shae Cota MD Referring Provider Active St art: September 04, 2024 End: September 04, 2024 FOR RECORDS PERTAINING TO PATIENTS WHO ARE OR HAVE BEEN ENROLLED IN A CHEMICAL DEPENDENCY/SUBSTANCEABUSE PROGRAM, SOME INFORMATION MAY BE OMITTED. This clinical summary was aggregated from multiple sources. Caution should be exercised in using it in the provision of clinical care. This summary normalizes information from multiple sources, and as a consequence, information in this document may materially change the coding, format and clinical context of patient data. In addition, data may be omitted in some cases. CLINICAL DECISIONS SHOULD BE BASED ON THE PRIMARY CLINICAL RECORDS. [facility] [employer] [facility]. provides no warranty or guarantee of the accuracy or completeness of information in this document.
== END | disposition home or self-care (01) ==
LOC: OPUS 12:04
PROVIDERS: PCP Family Medicine; Referring Provider Family Medicine; Visit Provider Family Medicine
DX: E04.1 Nontoxic single thyroid nodule (principal)
CPT/HCPCS: 76536

== ENCOUNTER → 2024-09-30 | Outpatient (CLI) | payer MEDICARE, OTHER, SELFPAY ==
--- NOTE | 2024-09-30 10:00 | FLU_PTH ---
PATIENT: MARY ANDRADE LOC: [facility] U#:[id number] AGE/SX: 64/F ROOM: RE09/30/[address]: Dr. Joby Hernandez MD : 1960 BED: DIS: 09/30/2024 SPEC #: [id number] RECD: 09/30/24 10:40 STATUS: MAYA REBeverly #: [id number] GIANNA: 09/30/24 10:[address]: Joby Hernandez DEPT: CYTOLOGY RECD BY: David Samuel ENTERED: 10/01/24 08:14 SP TYPE: Fluid OTHR DR: Dr. Otto Cota MD Tissues: A - Thyroid gland, NOS Procedures: Special Stain Group II Surgery Specimen Level IV Cytospin Fluid HEADER OPERATION: Fine needle aspiration of left thyroid nodule PRE-OP DIAGNOSIS: Left thyroid nodule TISSUE SUBMITTED: A- Left inferior thyroid nodule DIAGNOSIS CYTOLOGY A. Left thyroid, nodule, FNA (cytospin, 4 slides): - Nondiagnostic (TBS I). Note: Insufficient cellularity with abundant gel artifact noted. CYTOLOGY STUDY Slides are reviewed. CYTOLOGY GROSS A. Received is 30 ml of pale red cytolyt with particles and 4 smears labeled with the patient's name and and designated per the requisition as Left inferior thyroid. Submitted for cytology and cytospin. Mr 10/01/2024 CPT:21508
== END | disposition home or self-care (01) ==
LOC: LABSPEC 10:53
PROVIDERS: PCP Family Medicine; Referring Provider Surgery; Visit Provider Surgery
DX: E04.1 Nontoxic single thyroid nodule (principal)
CPT/HCPCS: 88108; 88305; 88313

== ENCOUNTER → 2025-01-08 | Outpatient (CLI) | payer MEDICARE, OTHER, SELFPAY ==
--- NOTE | 2025-01-08 12:55 | CT_ITS ---
PROCEDURE: CHEST WITHOUT CONTRAST 01/08/2025 REASON FOR EXAM: Pulmonary nodule surveillance TECHNIQUE: Chest CT without contrast. Coronal and Sagittal reconstruction series were provided. One or more dose reduction techniques were used (e.g., Automated exposure control, adjustment of the mA and/or kV according to patient size, use of iterative reconstruction technique RADIATION DOSE SUMMARY: CTDlvol: 7.72 mGy DLP: 247.20 mGycm COMPARISON: 09/04/2024 FINDINGS: Lung windows show the lungs to be normally expanded. Stable nonspecific pleural thickening in both hemithoraces including the previously described 1.5 by 0.7 cm subpleural nodule in the right lower lung field. Another six-month follow-up study is recommended to assess stability. No new suspicious noncalcified mass or nodule. No organized infiltrate. Stable nonspecific pleural thickening in both hemithoraces. There are small bilateral pleural effusions. Soft tissue windows show a normal-appearing thyroid gland. No suspicious axillary mediastinal or perihilar adenopathy. Punctate coronary artery calcifications. Limited cuts through the upper abdomen do not show a suspicious abnormality. Bony structures show degenerative change CT/Chest without Contrast IMPRESSION: Coronary artery calcification (CAC) is is present Stable nonspecific pleural thickening in both hemithoraces including a previous ly noted 1.8 x 0.7 cm subpleural nodule in the right lateral lower chuckie thorax. Another six-month follow-up is recommended to assess stability No organized infiltrate, stable small bilateral pleural effusions No new suspicious noncalcified mass or nodule Reading Location: [id number]
== END | disposition home or self-care (01) ==
LOC: CT 12:52
PROVIDERS: PCP Family Medicine; Referring Provider Internal Medicine Pulmonary Disease; Visit Provider Internal Medicine Pulmonary Disease
DX: R91.1 Solitary pulmonary nodule (principal)
CPT/HCPCS: 71250

== ENCOUNTER 2025-01-17 13:41 | Outpatient (RCR) | payer MEDICARE, OTHER, SELFPAY ==
[2025-01-17 15:24] LABS: Hematocrit 36.9 % (37-47); Hemoglobin 12.2 g/dL (12.0-15.0); Immature Granulocytes Count 0.010 X10^3/uL (0.0-0.0); Mean Corp Hgb Conc 33.1 g/dL (32-36); Mean Corpuscular Volume 86.6 fL (81-99); Mean Platelet Vol. 10.7 fl (6.2-12.0); NRBC Flagged by Analyzer 0 % (0-5); Platelet Count 275 K/mm3 (150-450); RBC Distribution Width CV 13.1 % (11.6-14.6); RBC Distribution Width SD 41.1 fl (35.1-43.9); Red Blood Count 4.26 M/mm3 (4.2-5.4); White Blood Count 6.1 K/mm3 (4.4-11.0)
[2025-01-17 15:54] LABS: AST(SGOT) 27 U/L (<=31); Alanine Aminotransfer ALT/SGPT 18 U/L (<=34); Albumin, Serum 4.5 g/dL (3.4-4.8); Alkaline Phosphatase 88 U/L (35-104); Anion Gap 11 (5-15); BUN 19 mg/dL (4-19); BUN/Creat Ratio 17.6 RATIO (10-20); Calcium,Total 10.1 mg/dL (7.6-11.0); Carbon Dioxide 28.2 mmol/L (21.0-32.0); Chloride 99 mmol/L (98-108); Globulin 2.8 g/dL (2.2-4.2); Glucose 111 mg/dL (70-99); Potassium 4.3 mmol/L (3.3-5.1)
== END 2025-01-25 18:00 | disposition home or self-care (01) ==
LOC: MTLAB 13:41
PROVIDERS: PCP Family Medicine
DX: C92.10 Chronic myeloid leukemia, BCR/ABL-positive, not having achieved remission (principal)
CPT/HCPCS: 36415; 80053; 85025